=== PATIENT | female | born 1950 | race Caucasian/White ===

== ENCOUNTER 2023-11-26 16:09 | Inpatient (IN) ==
[2023-11-26 17:15] LABS: Hematocrit (blood only) 38.1 % (37.0-47.0); Hemoglobin 13.5 g/dl (12.0-16.0); Mean Corpuscular Hemoglobin 33.3 pg (25.0-34.0); Mean Corpuscular Hgb Conc 35.4 g/dL (32.0-36.0); Mean Corpuscular Volume 94.1 fL (80.0-100.0); Mean Platelet Volume 10.2 fL (9.4-12.4); Platelet Count 424 K/uL (130-400); RDW Coefficient of Variation 12.8 % (11.5-14.5); RDW Standard Deviation 44.3 fL (36.4-46.3); Red Blood Count 4.05 M/uL (4.20-5.40); White Blood Count 23.08 K/ul (4.8-10.8)
[2023-11-26 17:30] LABS: Albumin Globulin Ratio 1.5 (0.9-2); Albumin Level 4.5 gm/dl (3.4-5.0); BUN Creatinine Ratio 17.8 (10-20); Bilirubin,Total 1.3 mg/dl (0.2-1.0); Calcium 9.4 mg/dl (8.6-10.3); Creatinine Clr Calc Pharmacy 42.8 ml/min; Est GFR (Non-African American) 81.1 ml/min; Globulin 3.1 gm/dl (2.5-4.0); Total Protein 7.6 gm/dl (6.0-8.3)
[2023-11-26 17:40] LABS: Basophils # (auto) 0.08 K/uL (0.00-0.20); Basophils % (auto) 0.3 %; Immature Granulocytes # (auto) 0.18 K/uL (0.01-0.20); Immature Granulocytes % (auto) 0.8 %; Lymphocytes # (auto) 1.17 K/uL (1.20-3.40); Lymphocytes % (auto) 5.1 %; Monocytes % (auto) 13.4 %; Neutrophils # (auto) 18.55 K/uL (1.40-6.50); Neutrophils % (auto) 80.4 %; RBC Morphology Unremarkable
[2023-11-26 17:43] LABS: INR 1.1 (0.9-1.1); Partial Thromboplastin Ratio 1.1; Partial Thromboplastin Time 30 Seconds (21-31); Prothrombin Time 11.9 Seconds (9.0-12.0)
[2023-11-26 17:48] LABS: Influenza A virus by PCR Negative (Neg); Influenza B virus by PCR Negative (Neg); RSV by PCR Negative (Neg); SARS CoV2 RNA(COVID-19) Ceph NEGATIVE (Negative)
--- NOTE | 2023-11-26 17:54 | Emergency Department Note ---
Impression & Plan Generalized weakness, Leukocytosis ED Provider Note HISTORY OF PRESENT ILLNESS: Patient is a 73-year-old female presenting with multiple complaints. Patient reports she has had poor oral intake for the last 2 to 3 weeks. She has lost 10 or more pounds in that timeframe. States that in the last week she has been having significant pain in her right lower jaw secondary to dental infection. She states that she has had pain with swallowing and cannot move her neck secondary to pain. She states she went to [facility] today and was prescribed something to help her sleep and an antibiotic. However, given her symptoms she decided to present to the emergency department. Reports that about a month ago she had diarrhea for about 2 weeks and has had multiple episodes of vomiting in that timeframe. She has not had any recent diarrhea or vomiting in the last week. Denies any measured fevers at home. Denies any abdominal pain. Denies any chest pain or shortness of breath. States that 2 months ago she had a root canal performed on a tooth on her right lower jaw. States that she has had further intermittent dental work to that tooth in the last 2 months. She started having pain and difficulty swallowing about a week ago. ROS: as above PHYSICAL EXAM: Constitutional: Patient appears in no acute distress. HENT: Head: Normocephalic and atraumatic. Eyes: EOMI, PERRL Mouth/Throat: Mucous membranes moist. Trismus. Unable to appreciate gumline as patient cannot open her mouth. Neck: Trachea midline. Neck supple. Patient has difficulties ranging her neck secondary to pain with movement to the right. Cardiovascular: RRR, No murmurs, rubs or gallops. Intact distal pulses. Pulmonary/Chest: No respiratory distress. Breath sounds clear and equal bilaterally. No wheezes or rales. Abdominal: Abdomen soft, no tenderness, rebound or guarding. Musculoskeletal: No edema, tenderness or deformity noted. Skin: Warm and dry. No rash, erythema, pallor or cyanosis Psychiatric: Appropriate mood and affect for situation. Neurological: Alert and keenly responsive. CN II-XII grossly intact, moving all extremities equally and fully. MDM: - Vitals signs showed hypertension. - History obtained via patient. History as above. - Chronic conditions affecting care: HTN; diverticulitis; malnutrition - Differential diagnoses include, but are not limited to: Retropharyngeal abscess; dental abscess; cellulitis; electrolyte abnormality; UTI; pneumonia - Order placed for continuous cardiac monitoring. At this time, monitor showed rate of 73 bpm with normal sinus rhythm, per my interpretation. - External medical records reviewed. Wound care visit note dated 05/19/2020 was reviewed. Patient was evaluated in their clinic for a pressure ulcer on her left hip that was a stage III pressure ulcer. - EKG interpreted by myself showed normal sinus rhythm. Rate 94 bpm. QT 372. No acute ischemic changes. - Laboratory workup interpreted by myself showed leukocytosis (WBC 23.08) with neutrophilic shift; thrombocytosis (plt 424); normal PT/INR; normal lactate; elevated anion gap (14 - likely from decreased PO intake); slight hyponatremia (Na 132); hypokalemia (K 3.0); normal procalcitonin - UA negative for infection - COVID/flu/RSV negative - CT soft tissue neck with IV contrast negative for abscess or cellulitis. Severe right and moderate left carotid stenosis suspected, per radiology. - Patient given 1L NS and 1g IV tylenol in ER. - Considered CT abdomen/pelvis, however, the patient has no reproducible abdominal pain on examination reports she is no longer having any diarrhea or vomiting. - Given patient's weakness and poor oral intake, will admit to hospital service for further evaluation. Unclear source of her profound leukocytosis at this time. - Discussion was had with major case detective about patient's case and need for admission - Hospitalist, Dr. Albert, consulted for admission - [facility] ASSESSMENT AND PLAN: Diagnosis: Generalized weakness; leukocytosis Plan: admit Past Med/Surg History Problem List (Updated 11/26/23 @ 23:13 by Kimmy Graham MD) Leukocytosis (Acute) Generalized weakness (Acute) Illness Encounter for wound care (Acute) Pressure ulcer of left hip, stage 3 (Acute) Unstageable pressure ulcer of left hip (Acute) Malnourished (Acute) Sarcopenia (Acute) Stage II pressure ulcer of left hip (Acute) Diverticulitis (Chronic) Hypertension (Chronic) Left arm numbness (Acute) Left hip pain (Acute) Left hip pain (Acute) Medical History Diverticulitis Hypertension Left arm numbness Left hip pain Pressure ulcer of left hip, stage 3 Surgical History History of dental surgery Family History Other Hypertension Social History Smoking Status: Never smoker Tobacco Type: Cigarettes Hx Alcohol Use: Yes Alcohol type: wine Alcohol Intake Frequency: Monthly or Less Hx Substance Use: No Preferred Language: Omani Beliefs That Will Affect Care: None marital status: Single Current Living Situation: Significant Other current occupational status: retired Feels Safe at Home: Yes Allergies Allergies Allergy/AdvReac Type Severity Reaction Status Date / Time cyclobenzaprine Allergy Unknown * Verified 11/26/23 20:13 hydrocodone Allergy Unknown * Verified 11/26/23 20:13 propoxyphene Allergy Unknown * Verified 11/26/23 20:13 Quinolones AdvReac Intermediate N/V Verified 11/26/23 20:13 Home Meds Home Medications Medication Instructions Recorded Confirmed lorazepam 1 mg tablet 0.5 mg PO Q8 PRN Anxiety 02/11/21 11/26/23 amlodipine 5 mg tablet 5 mg PO QAM 12/05/21 11/26/23 amoxicillin 500 mg capsule 2,000 mg PO ONCE PRN before dental 11/26/23 11/26/23 appointment atenolol 50 mg tablet 50 mg PO QAM 11/26/23 11/26/23 omeprazole 20 mg capsule,delayed 20 mg PO DAILYBB 11/26/23 11/26/23 release sucralfate 100 mg/mL oral 10 ml PO QID 11/26/23 11/26/23 suspension Results & Data (ED) Vital Signs Vital Signs - 24 hr 11/26/23 16:12 11/26/23 17:15 11/26/23 19:44 Temperature 36.7 C Temperature Source Skin Pulse Rate 90 Pulse Rate [Apical] 90 70 Respiratory Rate 18 14 18 Respiratory Effort / Characteristics Non-Labored Spontaneous Respiratory Depth Normal Blood Pressure 158/90 H Blood Pressure [Left Arm] 150/82 H 130/70 Blood Pressure Mean 112 Blood Pressure Mean [Left Arm] 104 90 Pulse Oximetry 98 99 95 Oxygen Delivery Method Room Air Room Air Room Air Sepsis Recent Fever Within 48 Hours No Sepsis New/Unexplained Change in Mental Status No Sepsis Action Taken by Nursing No Action Required 11/26/23 19:48 11/26/23 20:00 11/26/23 21:00 Temperature Temperature Source Pulse Rate 67 68 68 Pulse Rate [Apical] Respiratory Rate 18 20 Respiratory Effort / Characteristics Respiratory Depth Blood Pressure 128/65 123/74 Blood Pressure [Left Arm] Blood Pressure Mean 86 99 Blood Pressure Mean [Left Arm] Pulse Oximetry 94 93 Oxygen Delivery Method Sepsis Recent Fever Within 48 Hours Sepsis New/Unexplained Change in Mental Status Sepsis Action Taken by Nursing 11/26/23 22:00 Temperature Temperature Source Pulse Rate 73 Pulse Rate [Apical] Respiratory Rate 20 Respiratory Effort / Characteristics Respiratory Depth Blood Pressure 134/72 Blood Pressure [Left Arm] Blood Pressure Mean 97 Blood Pressure Mean [Left Arm] Pulse Oximetry 94 Oxygen Delivery Method Sepsis Recent Fever Within 48 Hours Sepsis New/Unexplained Change in Mental Status Sepsis Action Taken by Nursing Laboratory Data 11/26/23 16:41 11/26/23 16:41 Lab Results 11/26/23 11/26/23 11/26/23 Range/Units 16:33 16:41 19:02 WBC 23.08 H (4.8-10.8) K/ul RBC 4.05 L (4.20-5.40) M/uL Hgb 13.5 (12.0-16.0) g/dl Hct 38.1 (37.0-47.0) % MCV 94.1 (80.0-100.0) fL MCH 33.3 (25.0-34.0) pg MCHC 35.4 (32.0-36.0) g/dL RDW Std Deviation 44.3 (36.4-46.3) fL RDW Coeff of Piero 12.8 (11.5-14.5) % Plt Count 424 H (130-400) K/uL MPV 10.2 (9.4-12.4) fL Immature Gran % (Auto) 0.8 % Neut % (Auto) 80.4 % Lymph % (Auto) 5.1 % [place] % (Auto) 13.4 % Eos % (Auto) 0.0 % Baso % (Auto) 0.3 % Neut # (Auto) 18.55 H (1.40-6.50) K/uL Lymph # (Auto) 1.17 L (1.20-3.40) K/uL [place] # (Auto) 3.10 H (0.11-0.59) K/uL Eos # (Auto) 0.00 (0.00-0.50) K/uL Baso # (Auto) 0.08 (0.00-0.20) K/uL Immature Gran # (Auto) 0.18 (0.01-0.20) K/uL RBC Morphology Unremarkable PT 11.9 (9.0-12.0) Seconds INR 1.1 (0.9-1.1) APTT 30 (21-31) Seconds PTT Ratio 1.1 Sodium 132 L (136-145) mmol/L Potassium 3.0 L (3.5-5.1) mmol/L Chloride 90 L (98-107) mmol/L Carbon Dioxide 28 (21-32) mmol/L Anion Gap 14 H (3-11) BUN 13 (6-23) mg/dl Creatinine 0.73 (0.6-1.2) mg/dl Est Cr Clr Drug Dosing 42.8 ml/min Est GFR ( Amer) 94.0 ml/min Est GFR (Non-Af Amer) 81.1 ml/min BUN/Creatinine Ratio 17.8 (10-20) Glucose 125 H (70-99(Fasting)) mg/dl Lactate 0.9 (0.4-2.0) mmol/L Calcium 9.4 (8.6-10.3) mg/dl Total Bilirubin 1.3 H (0.2-1.0) mg/dl AST 16 (13-39) U/L ALT 19 (7-52) U/L Alkaline Phosphatase 69 (34-104) U/L Total Protein 7.6 (6.0-8.3) gm/dl Albumin 4.5 (3.4-5.0) gm/dl Globulin 3.1 (2.5-4.0) gm/dl Albumin/Globulin Ratio 1.5 (0.9-2) Procalcitonin 0.22 (0-0.5) ng/ml Urine Color Urine Appearance (Clear) Urine pH (4.5-7.5) Ur Specific [place] (1.000-1.030) Urine Protein (Negative) Urine Glucose (UA) (Negative) Urine Ketones (Negative) Urine Blood (Negative) Urine Nitrite (Negative) Urine Bilirubin (Negative) Urine Urobilinogen (Negative) Ur Leukocyte Esterase (Negative) Urine WBC (Auto) (0-5) /hpf Urine RBC (Auto) (0-2) /hpf U Hyaline Cast (Auto) (0-2) /lpf U Epithel Cells (Auto) (0-2) /hpf Urine Bacteria (Auto) (None Seen) SARS-CoV-2 (PCR) NEGATIVE (Negative) Influenza Type A (PCR) Negative (Neg) Influenza Type B (PCR) Negative (Neg) RSV (RT-PCR) Negative (Neg) 11/26/23 Range/Units 19:45 WBC (4.8-10.8) K/ul RBC (4.20-5.40) M/uL Hgb (12.0-16.0) g/dl Hct (37.0-47.0) % MCV (80.0-100.0) fL MCH (25.0-34.0) pg MCHC (32.0-36.0) g/dL RDW Std Deviation (36.4-46.3) fL RDW Coeff of Piero (11.5-14.5) % Plt Count (130-400) K/uL MPV (9.4-12.4) fL Immature Gran % (Auto) % Neut % (Auto) % Lymph % (Auto) % [place] % (Auto) % Eos % (Auto) % Baso % (Auto) % Neut # (Auto) (1.40-6.50) K/uL Lymph # (Auto) (1.20-3.40) K/uL [place] # (Auto) (0.11-0.59) K/uL Eos # (Auto) (0.00-0.50) K/uL Baso # (Auto) (0.00-0.20) K/uL Immature Gran # (Auto) (0.01-0.20) K/uL RBC Morphology PT (9.0-12.0) Seconds INR (0.9-1.1) APTT (21-31) Seconds PTT Ratio Sodium (136-145) mmol/L Potassium (3.5-5.1) mmol/L Chloride (98-107) mmol/L Carbon Dioxide (21-32) mmol/L Anion Gap (3-11) BUN (6-23) mg/dl Creatinine (0.6-1.2) mg/dl Est Cr Clr Drug Dosing ml/min Est GFR ( Amer) ml/min Est GFR (Non-Af Amer) ml/min BUN/Creatinine Ratio (10-20) Glucose (70-99(Fasting)) mg/dl Lactate (0.4-2.0) mmol/L Calcium (8.6-10.3) mg/dl Total Bilirubin (0.2-1.0) mg/dl AST (13-39) U/L ALT (7-52) U/L Alkaline Phosphatase (34-104) U/L Total Protein (6.0-8.3) gm/dl Albumin (3.4-5.0) gm/dl Globulin (2.5-4.0) gm/dl Albumin/Globulin Ratio (0.9-2) Procalcitonin (0-0.5) ng/ml Urine Color Dark Yellow Urine Appearance Cloudy A (Clear) Urine pH 5.5 (4.5-7.5) Ur Specific [place] 1.023 (1.000-1.030) Urine Protein 1+ H (Negative) Urine Glucose (UA) Negative (Negative) Urine Ketones 1+ H (Negative) Urine Blood Negative (Negative) Urine Nitrite Negative (Negative) Urine Bilirubin 2+ H (Negative) Urine Urobilinogen Negative (Negative) Ur Leukocyte Esterase Trace H (Negative) Urine WBC (Auto) 6-10 H (0-5) /hpf Urine RBC (Auto) 0-2 (0-2) /hpf U Hyaline Cast (Auto) 6-10 H (0-2) /lpf U Epithel Cells (Auto) 11-20 H (0-2) /hpf Urine Bacteria (Auto) None Seen (None Seen) SARS-CoV-2 (PCR) (Negative) Influenza Type A (PCR) (Neg) Influenza Type B (PCR) (Neg) RSV (RT-PCR) (Neg) Administered Medications Discontinued Medications Sodium Chloride (Nss) 1,000 mls @ 999 mls/hr IV .[id number] ONE Stop: 11/26/23 18:50 Last Infusion: 11/26/23 20:00 Dose: Infused Documented By: Admin: 11/26/23 17:56 Dose: 999 mls/hr Documented By: ENMA Acetaminophen (Ofirmev) 1,000 mg in 100 mls @ 400 mls/hr IV NOW STA Stop: 11/26/23 18:04 Last Infusion: 11/26/23 18:11 Dose: Infused Documented By: Admin: 11/26/23 17:56 Dose: 400 mls/hr Documented By: ENMA Ioversol (Optiray 320 100ml) 94 ml IV ONCE ONE Stop: 11/26/23 18:27 Last Admin: 11/26/23 18:27 Dose: 94 ml Documented By: MOLLY Imaging Data Radiologist's Impression: Soft Tissue Neck CT 11/26/23 17:49 Exam(s): CT NECK With Contrast IV Amt: 94 cc opti 320 EXAM: CT Neck With Intravenous Contrast CLINICAL HISTORY: Reason for exam: R dental infection; neck pain. TECHNIQUE: Axial computed tomography images of the neck with intravenous contrast. CTDI is 8.2 mGy and DLP is 222.71 mGy-cm. Automated exposure control was utilized for the study. A dose lowering technique was utilized adhering to the principles of ALARA. Mild to moderate motion artifact and dental metal artifact. CONTRAST: Patient received 94 cc opti 320 of IV contrast COMPARISON: CT cervical spine 12/05/21. FINDINGS: Oropharynx: Unremarkable. No significant tonsillar enlargement. No peritonsillar abscess. Hypopharynx: Unremarkable. Larynx: Unremarkable. Normal epiglottis. Trachea: Unremarkable. Retropharyngeal space: Unremarkable. Submandibular/parotid glands: Unremarkable. Thyroid: Unremarkable. Bones/joints: No acute fracture. Soft tissues: Unremarkable. No mass, cellulitis or abscess, with attention to the soft tissues near the maxilla and mandible. Vasculature: Severe bilateral carotid atherosclerosis with severe right and at least moderate left ICA stenosis. Lymph nodes: Unremarkable. No lymphadenopathy. Lung apices: Unremarkable as visualized. IMPRESSION: 1. No abscess or cellulitis attention to the dentition. Limited evaluation due to dental metal artifact and patient motion. 2. Severe right and moderate left carotid stenosis suspected. Electronically signed by: Lillie Gary M.D. 11/26/23 19:53 PM Discharge Plan Visit Data Chief Complaint: Illness Stated Complaint: NOT EATING, LETHARGIC, SORE THROAT, NECK PAIN ED Provider: Kimmy Graham Discharge Problem: Generalized weakness, Leukocytosis Forms Stand Alone Forms: My [facility] Prescriptions Prescriptions: No Action lorazepam 1 mg tablet 0.5 mg PO Q8 PRN (Reason: Anxiety) amlodipine 5 mg tablet 5 mg PO QAM sucralfate 100 mg/mL suspension 10 ml PO QID omeprazole 20 mg capsule,delayed release(DR/EC) 20 mg PO DAILYBB atenolol 50 mg tablet 50 mg PO QAM amoxicillin 500 mg capsule 2,000 mg PO ONCE PRN (Reason: before dental appointment) Referrals Referrals: Richi Alonzo MD [Primary Care Provider] -
[2023-11-26] MEDS: SODIUM CHLORIDE 0.9% 1,000 ML IV ONE (17:56)
[2023-11-26] MEDS: ACETAMINOPHEN 1,000 MG/100 ML VIAL IV STA (17:56)
[2023-11-26] MEDS: OPTIRAY 320 100ml IV ONE (18:27)
--- NOTE | 2023-11-26 19:54 | CT Scan Report ---
Exam(s): CT NECK With Contrast IV Amt: 94 cc opti 320 EXAM: CT Neck With Intravenous Contrast CLINICAL HISTORY: Reason for exam: R dental infection; neck pain. TECHNIQUE: Axial computed tomography images of the neck with intravenous contrast. CTDI is 8.2 mGy and DLP is 222.71 mGy-cm. Automated exposure control was utilized for the study. A dose lowering technique was utilized adhering to the principles of ALARA. Mild to moderate motion artifact and dental metal artifact. CONTRAST: Patient received 94 cc opti 320 of IV contrast COMPARISON: CT cervical spine 12/05/21. FINDINGS: Oropharynx: Unremarkable. No significant tonsillar enlargement. No peritonsillar abscess. Hypopharynx: Unremarkable. Larynx: Unremarkable. Normal epiglottis. Trachea: Unremarkable. Retropharyngeal space: Unremarkable. Submandibular/parotid glands: Unremarkable. Thyroid: Unremarkable. Bones/joints: No acute fracture. Soft tissues: Unremarkable. No mass, cellulitis or abscess, with attention to the soft tissues near the maxilla and mandible. Vasculature: Severe bilateral carotid atherosclerosis with severe right and at least moderate left ICA stenosis. Lymph nodes: Unremarkable. No lymphadenopathy. Lung apices: Unremarkable as visualized. IMPRESSION: 1. No abscess or cellulitis attention to the dentition. Limited evaluation due to dental metal artifact and patient motion. 2. Severe right and moderate left carotid stenosis suspected. Electronically signed by: Lillie Gary M.D. 11/26/23 19:53 PM
[2023-11-26 20:15] LABS: Appearance Urine Cloudy (Clear); Bacteria Urine Automated None Seen (None Seen); Bilirubin Urine 2+ (Negative); Blood Urine Negative (Negative); Color Urine Dark Yellow; Glucose Urine UA Negative (Negative); Ketones Urine 1+ (Negative); Leukocyte Esterase Urine Trace (Negative); Nitrite Urine Negative (Negative); Protein Urine 1+ (Negative); RBC Urine Automated 0-2 /hpf (0-2); Specific Gravity Urine 1.023 (1.000-1.030); Urobilinogen Urine Negative (Negative); pH Urine 5.5 (4.5-7.5)
--- NOTE | 2023-11-26 22:43 | History & Physical Report ---
Date of Service November 26, 2023 Assessment & Plan (1) Illness: Plan: 73-year-old female with past medical history significant for hyperlipidemia, hypertension, history of polymyalgia rheumatica, osteoporosis, protein calorie malnutrition, diverticulosis of colon and diverticulitis, history of tobacco use disorder, depression with anxiety comes because of pain in the jaw and neck and face and thinks possible dental infection. Patient states she had a root canal in a one of the front teeth teeth in lower jaw few months back and at that time the tooth was cracked. There is a plan for dental implantation. About 3 weeks ago her dentist scrapped that teeth. For 1 week she was okay but after 1 week she developed some pain in the jaw and she thinks she has some infection going on there. As per she also gets these bouts of nausea/ vomiting and d iarrhea every few months since she has bowel surgery for diverticulitis. 2 weeks ago she developed nausea vomiting and diarrhea saw PCP thought to be gastroenteritis and also had some dysphagia thought to be from GERD and prescribed omeprazole. Currently nausea /vomiting and diarrhea resolved and dysphagia seems to be getting better. Then the last few days the dental pain has got worse and she cannot open mouth fully and also pain is radiating to the right side of the face and to the neck and not eating or drinking much because of this ongoing symptoms.Patient states she was talking with her dentist last couple of days and was advised to go to come to the hospital. Denies any fever. Has some headache. No dizziness. No blurred visions. No runny nose. Has occasional cough. No chest pain. No shortness of breath. No abdominal pain. Currently bowel movements are okay. Micturating okay. Last few days because of weakness she is requiring some assistance with ambulating. Lost about 10 pounds in last 3 weeks. Currently resting comfortably and hemodynamic stable. Illness Leukocytosis Has dental pain right lower jaw radiating to the face and neck Recent dental procedure CT scan soft tissue neck okay Having difficulty eating clears for now IV fluids Pain control IV Zosyn Consult oral surgery in a.m. Recent diarrhea Leukocytosis No recent use of antibiotics Will check for C. difficile Dysphagia Possible GERD CT soft tissue neck okay Seems somewhat getting better IV Pepcid If not improving will consult GI Malnutrition Nutrition follow-up Hyperlipidemia On statin Hypertension On amlodipine and atenolol Will monitor Depression with anxiety On Ativan as needed DVT prophylaxis SCDs for now Disposition Medical floor Full code. History of Present Illness Chief Complaint: Illness, possible dental infection Primary Care Provider: Richi Alnozo MD 73-year-old female with past medical history significant for hyperlipidemia, hypertension, history of polymyalgia rheumatica, osteoporosis, protein calorie malnutrition, diverticulosis of colon and diverticulitis, history of tobacco use disorder, depression with anxiety comes because of pain in the jaw and neck and face and thinks possible dental infection. Patient states she had a root canal in a one of the front teeth teeth in lower jaw few months back and at that time the tooth was cracked. There is a plan for dental implantation. About 3 weeks ago her dentist scrapped that teeth. For 1 week she was okay but after 1 week she developed some pain in the jaw and she thinks she has some infection going on there. As per she also gets these bouts of nausea/ vomiting and diarrhea every few months since she has bowel surgery for diverticulitis. 2 weeks ago she developed nausea vomiting and diarrhea saw PCP thought to be gastroenteritis and also had some dysphagia thought to be from GERD and prescribed omeprazole. Currently nausea /vomiting and diarrhea resolved and dysphagia seems to be getting better. Then the last few days the dental pain has got worse and she cannot open mouth fully and also pain is radiating to the right side of the face and to the neck and not eating or drinking much because of this ongoing symptoms.Patient states she was talking with her dentist last couple of days and was advised to go to come to the hospital. Denies any fever. Has some headache. No dizziness. No blurred visions. No runny nose. Has occasional cough. No chest pain. No shortness of breath. No abdominal pain. Currently bowel movements are okay. Micturating okay. Last few days because of weakness she is requiring some assistance with ambulating. Lost about 10 pounds in last 3 weeks. Currently resting comfortably and hemodynamic stable. Past medical history. As mentioned above Past surgical history. Colonoscopy with biopsy. Dilatation curettage. Lumbar hemilaminectomy. Partial removal of colon for recurrent diverticulitis. Cataracts. Social history. Quit smoking 2018. Smoked 0.1 pack a day for 30 years. Alcohol occasional. No drug use. Family history significant for mother had allergies. Paternal aunt had breast cancer. Paternal grandmother had diabetes. Allergies Allergy/AdvReac Type Severity Reaction Status Date / Time cyclobenzaprine Allergy Unknown * Verified 11/26/23 20:13 hydrocodone Allergy Unknown * Verified 11/26/23 20:13 propoxyphene Allergy Unknown * Verified 11/26/23 20:13 Quinolones AdvReac Intermediate N/V Verified 11/26/23 20:13 Home Medications Medication Instructions Recorded Confirmed Type lorazepam 1 mg tablet 0.5 mg PO Q8 PRN Anxiety 02/11/21 11/26/23 History amlodipine 5 mg tablet 5 mg PO QAM 12/05/21 11/26/23 History amoxicillin 500 mg capsule 2,000 mg PO ONCE PRN before dental 11/26/23 11/26/23 History appointment atenolol 50 mg tablet 50 mg PO QAM 11/26/23 11/26/23 History omeprazole 20 mg capsule,delayed 20 mg PO DAILYBB 11/26/23 11/26/23 History release sucralfate 100 mg/mL oral 10 ml PO QID 11/26/23 11/26/23 History suspension Past Med/Surg History Problem List (Updated 11/26/23 @ 23:13 by Kimmy Graham MD) Leukocytosis (Acute) Generalized weakness (Acute) Illness Encounter for wound care (Acute) Pressure ulcer of left hip, stage 3 (Acute) Unstageable pressure ulcer of left hip (Acute) Malnourished (Acute) Sarcopenia (Acute) Stage II pressure ulcer of left hip (Acute) Diverticulitis (Chronic) Hypertension (Chronic) Left arm numbness (Acute) Left hip pain (Acute) Left hip pain (Acute) Medical History Diverticulitis Hypertension Left arm numbness Left hip pain Pressure ulcer of left hip, stage 3 Surgical History History of dental surgery Family History Other Hypertension Social History Smoking Status: Never smoker Tobacco Type: Cigarettes Hx Alcohol Use: Yes Alcohol type: wine Alcohol Intake Frequency: Monthly or Less Hx Substance Use: Yes Last Used Substance: Unknown Last Used Substance Other:: uses medical marijuana "ocassionally", but not recently Preferred Language: Bangladeshi Communication Ability: Effective Environmental Engineer Scientist Required: No Beliefs That Will Affect Care: None marital status: Single Current Living Situation: Significant Other Current Living Situation Comment: lives with sig. other in 2 story home, some reported difficulty with stairs current occupational status: retired Other Information That Helps Us Care for You: No Feels Safe at Home: Yes Safety Concerns: Feels Safe At This Time Assistive Devices: Denture - Upper Assistive Devices Comment: states that she is "getting a cane" due to recent weakness Review of Systems Review of Systems: All systems reviewed & are unremarkable except as noted in HPI & below Physical Exam Physical Exam: General- Not in acute distress. Thin and frail Head- atraumatic Eyes- PERRL. ENT- oropharynx clear, Painful opening of mouth Neck- supple, no JVD. Lungs- clear to auscultation no wheezing or crackles Heart- regular rhythm; no murmur, no gallop Abdomen- normal bowel sounds, soft, nontender, no distension Extremities- no pretibial edema, no erythema seen. Neuro- alert, oriented PERRL, no facial palsy; no dysarthria; moves extremities Results & Data Results & Data Vital Signs (Past 12 Hours) Vital Signs Temp Pulse Pulse Resp BP BP Pulse Ox 11/26/23 22:00 73 20 134/72 94 11/26/23 21:00 68 20 123/74 93 11/26/23 20:00 68 18 128/65 94 11/26/23 19:48 67 11/26/23 19:44 70 18 130/70 95 11/26/23 17:15 90 14 150/82 H 99 11/26/23 16:12 36.7 C 90 18 158/90 H 98 O2 Del Method 11/26/23 22:00 11/26/23 21:00 11/26/23 20:00 11/26/23 19:48 11/26/23 19:44 Room Air 11/26/23 17:15 Room Air 11/26/23 16:12 Room Air Diagnostic Findings Laboratory Results WBC 23.08 K/ul (4.8-10.8) H 11/26/23 16:41 RBC 4.05 M/uL (4.20-5.40) L 11/26/23 16:41 Hgb 13.5 g/dl (12.0-16.0) 11/26/23 16:41 Hct 38.1 % (37.0-47.0) 11/26/23 16:41 MCV 94.1 fL (80.0-100.0) 11/26/23 16:41 MCH 33.3 pg (25.0-34.0) 11/26/23 16:41 MCHC 35.4 g/dL (32.0-36.0) 11/26/23 16:41 RDW Std Deviation 44.3 fL (36.4-46.3) 11/26/23 16:41 RDW Coeff of Piero 12.8 % (11.5-14.5) 11/26/23 16:41 Plt Count 424 K/uL (130-400) H 11/26/23 16:41 MPV 10.2 fL (9.4-12.4) 11/26/23 16:41 Immature Gran % (Auto) 0.8 % 11/26/23 16:41 Neut % (Auto) 80.4 % 11/26/23 16:41 Lymph % (Auto) 5.1 % 11/26/23 16:41 [place] % (Auto) 13.4 % 11/26/23 16:41 Eos % (Auto) 0.0 % 11/26/23 16:41 Baso % (Auto) 0.3 % 11/26/23 16:41 Neut # (Auto) 18.55 K/uL (1.40-6.50) H 11/26/23 16:41 Lymph # (Auto) 1.17 K/uL (1.20-3.40) L 11/26/23 16:41 [place] # (Auto) 3.10 K/uL (0.11-0.59) H 11/26/23 16:41 Eos # (Auto) 0.00 K/uL (0.00-0.50) 11/26/23 16:41 Baso # (Auto) 0.08 K/uL (0.00-0.20) 11/26/23 16:41 Immature Gran # (Auto) 0.18 K/uL (0.01-0.20) 11/26/23 16:41 RBC Morphology Unremarkable 11/26/23 16:41 PT 11.9 Seconds (9.0-12.0) 11/26/23 16:41 INR 1.1 (0.9-1.1) 11/26/23 16:41 APTT 30 Seconds (21-31) 11/26/23 16:41 PTT Ratio 1.1 11/26/23 16:41 Sodium 132 mmol/L (136-145) L 11/26/23 16:41 Potassium 3.0 mmol/L (3.5-5.1) L 11/26/23 16:41 Chloride 90 mmol/L (98-107) L 11/26/23 16:41 Carbon Dioxide 28 mmol/L (21-32) 11/26/23 16:41 Anion Gap 14 (3-11) H 11/26/23 16:41 BUN 13 mg/dl (6-23) 11/26/23 16:41 Creatinine 0.73 mg/dl (0.6-1.2) 11/26/23 16:41 Est Cr Clr Drug Dosing 42.8 ml/min 11/26/23 16:41 Est GFR ( Amer) 94.0 ml/min 11/26/23 16:41 Est GFR (Non-Af Amer) 81.1 ml/min 11/26/23 16:41 BUN/Creatinine Ratio 17.8 (10-20) 11/26/23 16:41 Glucose 125 mg/dl (70-99(Fasting)) H 11/26/23 16:41 Lactate 0.9 mmol/L (0.4-2.0) 11/26/23 19:02 Calcium 9.4 mg/dl (8.6-10.3) 11/26/23 16:41 Total Bilirubin 1.3 mg/dl (0.2-1.0) H 11/26/23 16:41 AST 16 U/L (13-39) 11/26/23 16:41 ALT 19 U/L (7-52) 11/26/23 16:41 Alkaline Phosphatase 69 U/L (34-104) 11/26/23 16:41 Total Protein 7.6 gm/dl (6.0-8.3) 11/26/23 16:41 Albumin 4.5 gm/dl (3.4-5.0) 11/26/23 16:41 Globulin 3.1 gm/dl (2.5-4.0) 11/26/23 16:41 Albumin/Globulin Ratio 1.5 (0.9-2) 11/26/23 16:41 Procalcitonin 0.22 ng/ml (0-0.5) 11/26/23 16:41 Urine Color Dark Yellow 11/26/23 19:45 Urine Appearance Cloudy (Clear) A 11/26/23 19:45 Urine pH 5.5 (4.5-7.5) 11/26/23 19:45 Ur Specific [place] 1.023 (1.000-1.030) 11/26/23 19:45 Urine Protein 1+ (Negative) H 11/26/23 19:45 Urine Glucose (UA) Negative (Negative) 11/26/23 19:45 Urine Ketones 1+ (Negative) H 11/26/23 19:45 Urine Blood Negative (Negative) 11/26/23 19:45 Urine Nitrite Negative (Negative) 11/26/23 19:45 Urine Bilirubin 2+ (Negative) H 11/26/23 19:45 Urine Urobilinogen Negative (Negative) 11/26/23 19:45 Ur Leukocyte Esterase Trace (Negative) H 11/26/23 19:45 Urine WBC (Auto) 6-10 /hpf (0-5) H 11/26/23 19:45 Urine RBC (Auto) 0-2 /hpf (0-2) 11/26/23 19:45 U Hyaline Cast (Auto) 6-10 /lpf (0-2) H 11/26/23 19:45 U Epithel Cells (Auto) 11-20 /hpf (0-2) H 11/26/23 19:45 Urine Bacteria (Auto) None Seen (None Seen) 11/26/23 19:45 SARS-CoV-2 (PCR) NEGATIVE (Negative) 11/26/23 16:33 Influenza Type A (PCR) Negative (Neg) 11/26/23 16:33 Influenza Type B (PCR) Negative (Neg) 11/26/23 16:33 RSV (RT-PCR) Negative (Neg) 11/26/23 16:33 Impressions Soft Tissue Neck CT 11/26/23 17:49 Exam(s): CT NECK With Contrast IV Amt: 94 cc opti 320 EXAM: CT Neck With Intravenous Contrast CLINICAL HISTORY: Reason for exam: R dental infection; neck pain. TECHNIQUE: Axial computed tomography images of the neck with intravenous contrast. CTDI is 8.2 mGy and DLP is 222.71 mGy-cm. Automated exposure control was utilized for the study. A dose lowering technique was utilized adhering to the principles of ALARA. Mild to moderate motion artifact and dental metal artifact. CONTRAST: Patient received 94 cc opti 320 of IV contrast COMPARISON: CT cervical spine 12/05/21. FINDINGS: Oropharynx: Unremarkable. No significant tonsillar enlargement. No peritonsillar abscess. Hypopharynx: Unremarkable. Larynx: Unremarkable. Normal epiglottis. Trachea: Unremarkable. Retropharyngeal space: Unremarkable. Submandibular/parotid glands: Unremarkable. Thyroid: Unremarkable. Bones/joints: No acute fracture. Soft tissues: Unremarkable. No mass, cellulitis or abscess, with attention to the soft tissues near the maxilla and mandible. Vasculature: Severe bilateral carotid atherosclerosis with severe right and at least moderate left ICA stenosis. Lymph nodes: Unremarkable. No lymphadenopathy. Lung apices: Unremarkable as visualized. IMPRESSION: 1. No abscess or cellulitis attention to the dentition. Limited evaluation due to dental metal artifact and patient motion. 2. Severe right and moderate left carotid stenosis suspected. Electronically signed by: Lillie Gary M.D. 11/26/23 19:53 PM ECG Additional Comments: ECG normal sinus rhythm rate of 94. Nonspecific ST and T wave abnormalities. Code Status & VTE Plan VTE Prophylaxis Plan VTE Prophylaxis will be ordered: Yes
[2023-11-26] MEDS ORDERED: LORazepam 0.5 MG TAB PO PRN (23:54)
[2023-11-26] MEDS ORDERED: MoRPHine SULFATE 2 MG/ML CARP IV PRN (23:54)
[2023-11-26] MEDS ORDERED: POLYETHYLENE (MIRALAX) 17 GM PACK PO PRN (23:54)
[2023-11-26] MEDS ORDERED: ACETAMINOPHEN 325 MG TAB PO PRN (23:54)
[2023-11-27] MEDS: D5W AND 1/2NSS 1,000 ML IV SCH (00:16)
[2023-11-27] MEDS: FAMOTIDINE 20MG IV PUSH 20 MG/5 ML SYR IV STA (00:16)
[2023-11-27] MEDS: PIPER/TAZO 4.5g in D5W MINI-B 100 ML IV STA (00:31)
--- OUTSIDE RECORDS SUMMARY | 2023-11-27 03:18 | External Medical Summary | Summary of Care ---
Author Name Unknown Organization [facility] Address [address] [place] [address] Phone [phone] Care Team Providers Care Grill Prep Cook Name Role Phone Cheri ESPINO MD, Richi Sanches Primary Care Provider [phone] Reason for Referral * Ancillary Services (Within 10 days (routine)) - Authorized Specialty Diagnoses / Procedures Referred By Yi chao Referred To Contact Gastroenterology Diagnoses Acute gastroenteritis Loss of weight Esophageal dysphagia Helena Carver MD [address] [place] [address] Referral ID Status Reason Start Date Expiration Date Visits Requested Visits Authorized [id number] Authorized Ancillary Services Required 11/22/2023 999 999 Question Answer Referral Priority Within 10 days (routine) Where should this appointment be scheduled? [facility] Comments Upper Endoscopy ASGE Guidelines Dysphagia or odynophagia ADDITIONAL INFORMATION 1. Is the patient on Coumadin? No 2. Is the patient on Pradaxa? No Reason for Visit * Reason Comments Acute Last starte d with nausea, vomiting and diarrhea, weakness-started feeling better earlier this week. Since being sick has been having difficulty swallowing water-improving some Encounter Details Date Type Department Care Team (Late st Contact Info) Description 11/22/2023 1:00 PM EDT Office Visit General Internal Medicine [facility] [place] [address] [place] [address] Helena Carver MD [address] [place] [address] Acute gastroenteritis*; Loss of weight; Esophageal dysphagia; HTN, goal below 140/90; Other specified hypotension; Incisional hernia, without obstruction or gangrene; Underweight Allergies Active Allergy Reactions Criticality Noted Date Comments Cyclobenzaprine 12/05/2021 Other reaction(s): * Hydrocodone Hives High 01/27/1999 Nsaids 02/21/2000 Nausea heart flutters dizy Prednisone 03/28/2022 Hyper, jittery, insomnia Propoxyphene 01/26/2018 Other reaction(s): * Quinolones Medium 01/26/2018 Other reaction(s): N/V Sulfa Antibiotics 01/21/2013 Nausea, vomiting, and diarrhea documented as of this encounter (statuses as of 11/22/2023) Medications Medication Sig Dispensed Refills Start Date End Date Status Cholecalciferol (VITAMIN D3) 2000 units Capsule Take 1 Capsule by mouth in the morning. 90 Cap 1 03/18/2018 Active amoxicillin (AMOXIL) 500 MG Capsule take 4 capsules by mouth ONCE FOR 1 DOSE 1 HOUR BEFORE DENTAL PROCEDURE 4 Cap 3 11/18/2018 Active Acetaminophen ER 650 MG Oral Tablet Extended Release Take 1 Tablet by mouth every 8 hours as needed. Active Atenolol 50 MG Oral Tablet (Tenormin) Take 1 Tablet by mouth in the morning. 90 Tablet 10/09/2023 Active LORazepam 1 MG Oral Tablet (Ativan)Indicati ons:Anxiety state take 1/2 tablet by mouth every 8 hours if needed for anxiety 30 Tablet 11/20/2023 Active Omeprazole 20 MG Oral Capsule Delayed Release (PriLOSEC)Indica tions:Acute gastroenteritis, Loss of weight,Esophagea l dysphagia Take 1 Capsule by mouth in the morning. 1 hour before the first meal of the day. 30 Capsule 1 11/22/2023 Active Sucralfate 1 GM/10ML Oral Suspension (Carafate)Indica tions:Acute gastroenteritis, Esophageal dysphagia Take 10 mL by mouth in the morning and 10 mL at noon and 10 mL in the evening and 10 mL before bedtime. 420 mL 11/22/2023 Active amLODIPine Besylate 5 MG Oral Tablet (Norvasc) Take 1 Tablet by mouth in the morning. 90 Tablet 1 06/19/2023 11/22/2023 Discontinued (End of Procedure) documented as of this encounter (statuses as of 11/22/2023) Active Problems Problem Noted Date Diagnosed Date PMR (polymyalgia rheumatica) 03/28/2022 Protein-calorie malnutrition 02/27/2022 H/O epistaxis 03/20/2018 DYSLIPIDEMIA, GOAL TO BE DETERMINED 03/24/2009 Overview: Per Lipid Taxonomy. No advance directive on file 02/22/2008 Overview: No, Advance Directive brochure given to patient at prior appointment. Diverticulosis of colon 08/05/2007 Overview: 07/28/2010: colonoscopy benign mucosa and hyperplastic polyp, repeat 2016 Depression with anxiety 05/01/2007 Osteoporosis 07/22/2003 Anxiety state 07/22/2003 HTN, goal below 140/90 07/22/2003 Tobacco use disorder documented as of this encounter (statuses as of 11/22/2023) Resolved Problems Problem Noted Date Diagnosed Date Resolved Date Palpitations 01/13/2012 03/31/2018 Anxiety state 01/13/2012 05/13/2018 Asthma with severity to be determined 01/13/2007 08/20/2016 Overview: ICD-10 update of inactive term Allergic rhinitis 01/13/2007 05/13/2018 Mixed dyslipidemia 07/22/2003 9 Overview: Per Lipid Taxonomy. PATHOLOGICAL FRACTURE OF VERTEBRAE 07/22/2003 02/21/2017 documented as of this encounter (statuses as of 11/22/2023) Immunizations Name Administration Dates Next Due COVID-19 mRNA, LNP-s, No Pre serve, 2-Dose Series (Lydia) 11/10/2021,03/01/2021,08/17/2020,2020 Covid-19, Mrna, Lnp-s, Pf, B ivalent, 30 Mcg, IM, 12 yrs and above (Pfizer) 04/04/2022 Season Influenza, Quad, PF, Adjuvanted, 65+ Yrs, IM (FLUAD) 01/28/2020 Seasonal Influenza, PF, 6 M & above, IM , (FluLaval or Fluzone) 03/01/2023 Seasonal Influenza, Quadriva lent Hd (Fluzone Hd) 01/17/2022,12/29/2020 TDAP (age 10 and older)(Boostrix) 08/26/2017 TDAP, Age 7 and older, IM (Adacel) 12/25/2006 documented as of this encounter Social History Tobacco Use Types Packs/Day Years Used Date Smoking Tobacco: Former Cigarettes 0.1 30 0 12/23/1988 - 12/23/2018 Smokeless Tobacco: Never Comments:Reports trying to q uit occ smoker Alcohol Use Standard Drinks/Week Comments Yes 1.7 (1 standard drink = 0.6 oz p ure alcohol) occ drinks a week AUDIT-C Answer Date Recorded Q1: How often do you have a drink containing alcohol? 4 or more times a week 07/21/2020 Q2: How many drinks containi ng alcohol do you have on a typical day when you are drinking? 1 or 2 Q3: How often do you have si x or more drinks on one occasion? Not asked 07/21/2020 PHQ-2 Answer Date Recorded PHQ Adult Total Score 0 12/15/2021 Utilities Answer Date Recorded Do you have trouble paying y our heating, water, or electric bill? (Adult - for ages 18 years and over) Not on file 10/01/2023 Is your family able to pay t he heat, water, or electric bill? (Household - for ages 0-17 years) Not on file 10/01/2023 Does your family have access to good internet? (Household - for ages 0-17 years) Not on file 10/01/2023 Social Connections Answer Date Recorded How often do you feel lonely or isolated from those around you? (Adult - for ages 18 years and over) Not on file 10/01/2023 Sex and Gender Information Value Date Recorded Sex Assigned at Not on file Gender Identity Not on file Sexual Orientation Not on file Job Start Date Occupation Industry Not on file Not on file Not on file documented as of this encounter Last Filed Vital Signs Vital Sign Reading Time Taken Comments Blood Pressure 90/60 11/22/2023 1:27 PM EDT Pulse 72 11/22/2023 1:27 PM EDT Temperature 36.6 C (97.9 F) 11/22/2023 1:27 PM ED T Respiratory Rate 16 11/22/2023 1:27 PM EDT Oxygen Saturation - - Inhaled Oxygen Concentration - - Weight 40.5 kg (89 lb 3.2 oz) 11/22/2023 1:27 PM EDT Height - - Body Mass Index 16.31 01/16/2023 3:54 PM EDT documented in this encounter Progress Notes * Helena Carver MD - 11/22/2023 1:47 PM EDT SUBJECTIVE: Ana Cristina Lagos is a 73 year old female. Chief Complaint Patient presents with Acute Last started with nausea, vomiting and diarrhea, weakness-started feeling better earlier this week. Since being sick has been having difficulty swallowing water-improving some HPI: Patient presents today for acute appointment with symptoms of some nausea vomiting diarrhea which started last and lasted for about 5 days last episode was on Saturday or Saturday. Had notbeen eating well, lost weight, had regular bowel movement today. Has been drinking a lot of water, mixed with orange juice, Gatorade and soft foods. States after the episode of vomiting she had a discomfort in her retrosternal area on swallowing and pain in the back, gradually getting better. Has not tried eating any hard foods. Has not tried any OTC acid reducers. Blood pressure noted to be low today, has also lost weight as noted below. Denies symptoms of dizziness, urine is yellowish in color Wt Readings from Last 4 Encounters: 11/22/23 40.5 kg (89 lb 3.2 oz) 01/16/23 44.1 kg (97 lb 1.9 oz) 08/08/22 45.4 kg (100 lb) 07/10/22 45.4 kg (100 lb) BP Readings from Last 4 Encounters: 11/22/23 90/60 01/16/23 116/68 08/08/22 110/64 07/10/22 110/70 Patient Active Problem List Diagnosis Osteoporosis Anxiety state HTN, goal below 140/90 No advance directive on file Tobacco use disorder Depression with anxiety Diverticulosis of colon DYSLIPIDEMIA, GOAL TO BE DETERMINED H/O epistaxis Protein-calorie malnutrition (HCC) PMR (polymyalgia rheumatica) (HCC) Current Outpatient Medications Medication Sig Dispense Refill Cholecalciferol (VITAMIN D3) 2000 units Capsule Take 1 Capsule by mouth in the morning. 90 Cap 1 amoxicillin (AMOXIL) 500 MG Capsule take 4 capsules by mouth ONCE FOR 1 DOSE 1 HOUR BEFORE DENTAL PROCEDURE 4 Cap 3 Acetaminophen ER 650 MG Oral Tablet Extended Release Take 1 Tablet by mouth every 8 hours as needed. amLODIPine Besylate 5 MG Oral Tablet (Norvasc) Take 1 Tablet by mouth in the morning. 90 Tablet 1 Atenolol 50 MG Oral Tablet (Tenormin) Take 1 Tablet by mouth in the morning. 90 Tablet 0 LORazepam 1 MG Oral Tablet (Ativan) take 1/2 tablet by mouth every 8 hours if needed for anxiety 30Tablet 0 No current facility-administered medications for this visit. Review of patient's allergies indicates: Allergen Reactions Hydrocodone Hives Quinolones Other reaction(s): N/V Cyclobenzaprine Other reaction(s): * Nsaids Nausea heart flutters dizy Prednisone Hyper, jittery, insomnia Propoxyphene Other reaction(s): * Sulfa Antibiotics Nausea, vomiting, and diarrhea OBJECTIVE: BP 90/60 | Pulse 72 | Temp 36.6 C (97.9 F) | Resp 16 | Wt 40.5 kg (89 lb 3.2 oz) | BMI 16.31 kg/m | BSA 1.33 m PHYSICAL EXAM: General: alert, healthy, no distress, well developed Neck: supple, no adenopathy OP-mm moist, min coating Heart: regular rhythm and rate,No murmurs. Lungs: lungs clear to auscultation Extremities: no edema Abdomen: Soft, non-tender, 2" incisional hernia upper umb area,reducible, NT, normal bowel sounds, no masses or organomegaly ASSESSMENT/PLAN: Acute gastroenteritis (Primary) - CBC WITH WBC DIFFERENTIAL; Future; Expected date: 11/22/2023 - COMPREHENSIVE METABOLIC PANEL; Future; Expected date: 11/22/2023 - Omeprazole 20 MG Oral Capsule Delayed Release (PriLOSEC); Take 1 Capsule by mouth in the morning.1 hour before the first meal of the day. - UPPER ENDOSCOPY GI REFERRAL OP - Sucralfate 1 GM/10ML Oral Suspension (Carafate); Take 10 mL by mouth in the morning and 10 mL at noon and 10 mL in the evening and 10 mL before bedtime. - LIPASE; Future; Expected date: 11/22/2023 Loss of weight - CBC WITH WBC DIFFERENTIAL; Future; Expected date: 11/22/2023 - COMPREHENSIVE METABOLIC PANEL; Future; Expected date: 11/22/2023 - Omeprazole 20 MG Oral Capsule Delayed Release (PriLOSEC); Take 1 Capsule by mouth in the morning.1 hour before the first meal of the day. - UPPER ENDOSCOPY GI REFERRAL OP - LIPASE; Future; Expected date: 11/22/2023 Esophageal dysphagia - CBC WITH WBC DIFFERENTIAL; Future; Expected date: 11/22/2023 - COMPREHENSIVE METABOLIC PANEL; Future; Expected date: 11/22/2023 - Omeprazole 20 MG Oral Capsule Delayed Release (PriLOSEC); Take 1 Capsule by mouth in the morning.1 hour before the first meal of the day. - UPPER ENDOSCOPY GI REFERRAL OP - Sucralfate 1 GM/10ML Oral Suspension (Carafate); Take 10 mL by mouth in the morning and 10 mL at noon and 10 mL in the evening and 10 mL before bedtime. - LIPASE; Future; Expected date: 11/22/2023 HTN, goal below 140/90 Other specified hypotension Incisional hernia, without obstruction or gangrene Underweight Symptoms have resolved now, having regular bowel movements. Advised adequate hydration at least 6 cups of fluids per day. ?Francesca Nils tear Trial of omeprazole for one-month as well as Carafate liquid, labs as above and schedule endoscopy Discontinue amlodipine due to low blood pressure and weight loss Incision hernia noted, no symptoms related to the same Follow Up: Return in about 4 weeks (around 12/20/2023), or if symptoms worsen or fail to improve, forLabs Today. | For: Labs Today | Check-out note: Cyn f/u PCP -40 min appt needed Nurse Appt 1 wk BP check (This note was completed using the dictation program Fluency Direct. As such, there may be misspellings, word substitutions, or other variations that should not change the essence of the clinical content of this encounter note. If there is need for further clarification, please direct questions to the provider listed above.) Patient and / caregiver verbalize understanding of above instructions and agrees with plan of care. Helena Carver MD 11/22/2023 documented in this encounter Nursing Notes * Venice Campos LPN - 11/22/2023 1:27 PM EDT The patient has been properly identified by confirmation of name and date of . Chief Complaint Patient presents with Acute Last started with nausea, vomiting and diarrhea, weakness-started feeling better earlier this week. Since being sick has been having difficulty swallowing water-improving some documented in this encounter Plan of Treatment Upcoming Encounters Date Type Department Care Team (Late st Contact Info) Description 12/06/2023 11:30 AM EDT Nurse Only Ancillary [facility] [address] [place] [id number] Makayla, Nurse Fam Prac [address] [facility] [place] [phone] 12/25/2023 11:20 AM EDT Office Visit Family Practice [facility] Makayla [address] [place] [address] Corinne Garcia PA-C [address] [facility] [place] [id number] Pending Results Name Type Priority Associated Diagnoses Date /Time LIPASE Lab Routine Acute gastroenteritis Loss of weight Esophageal dysphagia 11/22/2023 2:16 PM EDT Scheduled Orders Name Type Priority Associated Diagnoses Orde r Schedule LIPASE Lab Routine Acute gastroenteritis Loss of weight Esophageal dysphagia Expected: 11/22/2023 (Approximate), Expires: 11/21/2024 Scheduled Referrals Name Type Priority Associated Diagnoses Orde r Schedule UPPER ENDOSCOPY GI REFERRAL OP Referral Within 10 days (routine) Acute gastroenteritis Loss of weight Esophageal dysphagia Ordered: 11/22/2023 Health Maintenance Due Date Last Done Comments Cologuard 1994 Fecal Occult Blood Test 1994 Sigmoidoscopy 1994 Zoster Vaccines (1 of 2) 10/13/1999 Pneumococcal Vaccine: 65+ Years (1 of 1 - PCV) 2014 *BISPHONATE OR OTHER ACCEPTABLE MEDICATION NEEDED FOR OSTEOPOROSIS (REFER TO SMARTSET #1146) 06/19/2015 Colonoscopy 07/29/2015 07/28/2010, 05/27/2009 Colorectal Cancer Screening 07/29/2015 Adult Wellness Visit 10/13/2015 Depression Monitoring 12/15/2022 12/15/2021 Mammogram 01/08/2023 01/08/2022, 12/15, 12/26/2020, Additional history exists COVID-19 Vaccine (2022- season) 2023 02/04/2023, 04/04/2022, 11/10/2021, Additional history exists Influenza Vaccine (FLU shot) (#1) 2023 03/01/2023, 01/17/2022, 12/29/2020, Additional history exists DXA Scan 02/27/2024 02/26/2022, 02/13, 11/16/2004, Additional history exists Albumin/Creatinine Ratio 09/01/2024 09/01/2021 GFR 11/21/2024 11/22/2023, 05/2021, 02/01/2022, Additional history exists Lipid Panel 09/15/2026 09/15/2021, 11/2016, 06/12/2013, Additional history exists DTaP,Tdap,and Td Vaccines (3 - Td or Tdap) 08/27/2027 08/26/2017, 12/25/2006 RETIRED - COLONOSCOPY-EVERY 5 YRS AGES 18-100 Discontinued 07/28/2010, 05/27/2009 VITAMIN D LEVEL ONCE IN A LIFETIME-USE SMARTSET# [id number] Completed 09/27/2021, 09/15/2021, 07/21/2020, Additional history exists HPV (Gardasil) Vaccine Aged Out No lo nger eligible based on patient's age to complete this topic Hepatitis B Vaccine Aged Out No longe r eligible based on patient's age to complete this topic MENINGOCOCCAL (MENACTRA/MENVEO) Aged Out No longer eligible based on patient's age to complete this topic documented as of this encounter Medical Devices Not on filedocumented as of this encounter Results * (ABNORMAL) COMPREHENSIVE METABOLIC PANEL (11/22/2023 2:16 PM EDT) BUN 15 6 - 20 mg/dL 11/22/2023 3:27 PM EDT [facility] 56-02 Creatinine 1.1(H) 0.5 - 1.0 mg/dL 11/22/2023 3:27 PM EDT [facility] [place] [facility]-02 Estimated Glomerular Filtration Rate 55(L) >=60 mL/min 11/22/2023 3:27 PM EDT [facility] 56 Comment:eGFR is calculated b ased on the CKD-EPI 2020 equation. Sodium 136 135 - 146 mmol/L 11/22/2023 3:[address]T [address] Potassium 3.6 3.5 - 5.1 mmol/L 11/22/2023 3:[address] Chloride 92(L) 98 - 107 mmol/L 11/22/2023 3:[address] CO2 29 22 - 32 mmol/L 11/22/2023 3:[address] Anion Gap 15 7 - 15 mmol/L 11/22/2023 3:[address] Glucose 96 70 - 120 mg/dL 11/22/2023 3:[address] Albumin 4.6 3.8 - 5.0 g/dL 11/22/2023 3:[address] AST 65(H) 10 - 35 U/L 11/22/2023 3:[address] Alkaline Phosphatase 81 35 - 130 U/L 11/22/2023 3:[address] Bilirubin, Total 0.7 <=1.2 mg/dL 11/22/2023 3:[address] Calcium 10.3(H) 8.4 - 10.2 mg/dL 11/22/2023 3:[address] Protein 7.0 6.0 - 8.3 g/dL 11/22/2023 3:27 PM EDT [facility] 56 ALT 50(H) 10 - 35 U/L 11/22/2023 3:27 PM T [facility] 56 Blood Venous blood specimen / Unknown Venipuncture / Unknown 11/22/2023 2:16 PM EDT 11/22/2023 2:17 PM EDT Helena Carver MD LAB BLOOD ORDERABLES [address] [place] [address] documented in this encounter Visit Diagnoses Diagnosis Acute gastroenteritis- Primary Other and unspecified noninfectious gastroenteritis and colitis Loss of weight Esophageal dysphagia Dysphagia, pharyngoesophageal phase HTN, goal below 140/90 Unspecified essential hypertension Other specified hypotension Incisional hernia, without obstruction or gangrene Incisional hernia without mention of obstruction or gangrene Underweight documented in this encounter Care Teams Grill Prep Cook Relationship Specialty Start Date End Date Richi Alonzo III, MD [address] [facility] [address] P[facility] - General Family Medicine 08/20/16 documented as of this encounter
--- OUTSIDE RECORDS SUMMARY | 2023-11-27 03:18 | External Medical Summary ---
Author Name Unknown Address Unknown Organization [id number]:[facility] - [address] [place] [address] Laboratory Report Ordering Provider Test Date Status ISAAC ARANDA 11/22/2023 14:16:47 Final Observation Date Value Abnormality Reference (Units ) Status BUN 11/22/2023 14:16:47 15 6-20 (mg/dL) Final Creatinine 11/22/2023 14:16:47 1.1 Above high normal 0.5-1.0 (mg/dL) Final Glomerular filtration rate/1.73 sq M.predicted [Volume Rate/Area] in Serum, Plasma or Blood by Creatinine-based formula (CKD-EPI) 11/22/2023 14:16:47 55 Below low normal >=60 (mL/min) Final eGFR is calculated based on the CKD-EPI 2020 equation. Sodium 11/22/2023 14:16:47 136 135-146 (m mol/L) Final Potassium 11/22/2023 14:16:47 3.6 3.5-5.1 (m mol/L) Final Cl 11/22/2023 14:16:47 92 Below low normal 98- 107 (mmol/L) Final CO2 11/22/2023 14:16:47 29 22-32 (mmo l/L) Final Anion gap 11/22/2023 14:16:47 15 7-15 (mmol /L) Final Glucose 11/22/2023 14:16:47 96 70-120 (mg /dL) Final Albumin 11/22/2023 14:16:47 4.6 3.8-5.0 (g /dL) Final AST (Aspartate aminotransferase) 11/22/2023 14:16:47 65 Above high normal 10-35 (U/L) Final Alk Phos 11/22/2023 14:16:47 81 35-130 (U/ L) Final Bilirubin, Total 11/22/2023 14:16:47 0.7 <=1 .2 (mg/dL) Final Calcium 11/22/2023 14:16:47 10.3 Above high normal 8. 4-10.2 (mg/dL) Final Protein 11/22/2023 14:16:47 7.0 6.0-8.3 (g /dL) Final ALT (Alanine aminotransferase) 11/22/2023 14:16:47 50 Above high normal 10-35 (U/L) Final Performing Location [facility] [address] [place] [address]
--- OUTSIDE RECORDS SUMMARY | 2023-11-27 03:18 | External Medical Summary ---
Author Name Unknown Address Unknown Organization [id number]:[facility] [address] Laboratory Report Ordering Provider Test Date Status ISAAC ARANDA 11/22/2023 14:16:47 Final Observation Date Value Abnormality Reference (Units ) Status WBC, Total 11/22/2023 14:16:47 7.40 4.00-10.8 0 (K/uL) Final RBC 11/22/2023 14:16:47 4.07 3.85-5.15 (M/uL) Final Hemoglobin 11/22/2023 14:16:47 13.5 12.0-15.3 (g/dL) Final HCT 11/22/2023 14:16:47 40.1 36.0-45.2 (%) Final MCV 11/22/2023 14:16:47 98.5 81.5-97.5 (fL) Final MCH 11/22/2023 14:16:47 33.2 27.0-34.0 (pg) Final MCHC 11/22/2023 14:16:47 33.7 32.0-36.0 (g/dL) Final RDW 11/22/2023 14:16:47 12.9 11.5-15.5 (%) Final Platelets 11/22/2023 14:16:47 298 140-400 (K /uL) Final MPV 11/22/2023 14:16:47 10.1 6.6-11.1 ( fL) Final Performing Location [facility] [place] [address]
--- OUTSIDE RECORDS SUMMARY | 2023-11-27 03:18 | External Medical Summary ---
Author Name Unknown Address Unknown Organization [id number]:[facility] [place] [address] [place] [address] [place] [address] Laboratory Report Ordering Provider Test Date Status ISAAC ARANDA 11/22/2023 14:16:47 Final Observation Date Value Abnormality Reference (Units ) Status Lipase 11/22/2023 14:16:47 40 13-60 (U/L ) Final Performing Location [facility] [place] [address] [address]
--- OUTSIDE RECORDS SUMMARY | 2023-11-27 03:18 | External Medical Summary ---
Author Name Unknown Address Unknown Organization K09:[facility] [place] [place] [address] Laboratory Report Ordering Provider Test Date Status ISAAC ARANDA 11/22/2023 14:16:47 Final Observation Date Value Abnormality Reference (Units ) Status SYNC LEUKOCYTES IN BLOOD BY AUTOMATED COUNT 11/22/2023 14:16:47 7.40 4.00-10.80 (K/uL) Final Segs 11/22/2023 14:16:47 57.9 40.0-75.0 (%) Final Lymphs % 11/22/2023 14:16:47 20.8 18.0-42.0 (%) Final Monos 11/22/2023 14:16:47 18.6 Above high normal 1.0-11.0 (%) Final Eosinophils 11/22/2023 14:16:47 2.2 0.0-6.0 (%) Final Basos 11/22/2023 14:16:47 0.5 0.0-2.0 (%) Final Absolute Segs 11/22/2023 14:16:47 4.28 1.80-7.70 (K/uL) Final Lymphs, absolute 11/22/2023 14:16:47 1.54 1.00-4.80 (K/ul) Final Monos, Abs 11/22/2023 14:16:47 1.38 Above high normal 0.00-1.10 (K/uL) Final Eos, Abs 11/22/2023 14:16:47 0.16 0.00-0.70 (K/uL) Final Basos, Abs 11/22/2023 14:16:47 0.04 0.00-0.20 (K/uL) Final Performing Location [facility] [place] [address]
--- OUTSIDE RECORDS SUMMARY | 2023-11-27 03:18 | External Medical Summary | Summary of Care ---
Author Name Unknown Organization [facility] Address [address] [place] [address] Phone [phone] Care Team Providers Care Manager Marketing Communication Name Role Phone Cheri ESPINO MD, Richi Sanches Primary Care Provider [phone] Reason for Visit * Reason Comments Outpatient Testing Encounter Details Date Type Department Care Team (Late st Contact Info) Description 11/22/2023 2:20 PM EDT Laboratory Laboratory [facility] [address] [place] [address] [facility] [address] [place] [address] Acute gastroenteritis; Loss of weight; Esophageal dysphagia Allergies Active Allergy Reactions Criticality Noted Date [...] 10/09/2023 Active LORazepam 1 MG Oral Tablet (Ativan)Indications :Anxiety state take 1/2 tablet by mouth every 8 hours if needed for anxiety 30 Tablet 11/20/2023 Active Omeprazole 20 MG Oral Capsule Delayed Release (PriLOSEC)Indicatio ns:Acute gastroenteritis,Los s of weight,Esophageal dysphagia Take 1 Capsule by mouth in the morning. 1 hour before the first meal of the day. 30 Capsule 1 11/22/2023 Active Sucralfate 1 GM/10ML Oral Suspension (Carafate)Indicatio ns:Acute gastroenteritis,Eso phageal dysphagia Take 10 mL by mouth in the morning and 10 mL at noon and 10 mL in the evening and 10 mL before bedtime. 420 mL 11/22/2023 Active documented as of this encounter (statuses as [...] mRNA, LNP-s, No Pre serve, 2-Dose Series (Pfizer) 11/10/2021,03/01/2021,08/17/2020,2020 Covid-19, Mrna, Lnp-s, Pf, B ivalent, [...] on file documented as of this encounter Plan of Treatment Upcoming Encounters Date Type Department Care Team (Late st Contact Info) Description 12/06/2023 11:30 AM EDT Nurse Only Ancillary [facility] [place] [address] [facility] [place] [address] Makayla Nurse Fam [facility] [address] [facility] [place] [address] 12/25/2023 11:20 AM EDT Office [place] [facility] [place] [address] [facility] [place] [address] Corinne Garcia PA-C [address] [facility] [place] [address] Pending Results Name Type Priority Associated Diagnoses Date /Time COMPREHENSIVE METABOLIC PANEL Lab Routine Acute gastroenteritis Loss of weight Esophageal dysphagia 11/22/2023 2:16 PM EDT LIPASE Lab Routine Acute gastroenteritis Loss of weight Esophageal dysphagia 11/22/2023 2:16 PM EDT Health Maintenance Due Date Last Done Comments [...] 01/08/2023 01/08/2022, 12/15, 12/26/2020, Additional history exists GFR 02/14/2023 02/14/2022, 01/14, 09/27/2021, Additional history exists COVID-19 Vaccine (2022- season) 2023 02/04/2023, 04/04/2022, 11/10/2021, Additional history exists Influenza Vaccine (FLU shot) (#1) 2023 03/01/2023, 01/17/2022, 12/29/2020, Additional history exists DXA Scan 02/27/2024 02/26/2022, 02/13, 11/16/2004, Additional history exists Albumin/Creatinine Ratio 09/01/2024 09/01/2021 Lipid Panel 09/15/2026 09/15/2021, 11/2016, 06/12/2013, Additional history exists DTaP,Tdap,and Td Vaccines (3 - Td or Tdap) 08/27/2027 08/26/2017, 12/25/2006 RETIRED - COLONOSCOPY-EVERY 5 YRS AGES 18-100 Discontinued 07/28/2010, 05/27/2009 VITAMIN D LEVEL ONCE IN A LIFETIME-USE SMARTSET# [id number] Completed 09/27/2021, 09/15/2021, 07/21/2020, Additional history exists [...] Not on filedocumented as of this encounter Procedures Procedure Name Priority Date/Time Associated Diagnosis Comments DIFFERENTIAL, AUTOMATED Routine 11/22/2023 2:16 PM EDT Acute gastroenteritis Loss of weight Esophageal dysphagia CBC Routine 11/22/2023 2:16 PM EDT Acute gastroenteritis Loss of weight Esophageal dysphagia CBC Routine 11/22/2023 2:16 PM EDT Acute gastroenteritis Loss of weight Esophageal dysphagia documented in this encounter Results * (ABNORMAL) DIFFERENTIAL, AUTOMATED (11/22/2023 2:16 PM EDT) WBC 7.40 4.00 - 10.80 K/uL 11/22/2023 2:25 PM EDT [facility] 56[facility]02 Neutrophils % 57.9 40.0 - 75.0 % 11/22/2023 2:25 PM EDT [facility] 56-02 Lymphocytes % 20.8 18.0 - 42.0 % 11/22/2023 2:25 PM EDT [facility] 56-02 Monocytes % 18.6(H) 1.0 - 11.0 % 11/22/2023 2:25 PM EDT [facility] 56-02 Eosinophils % 2.2 0.0 - 6.0 % 11/22/2023 2:25 PM EDT [facility] 56-02 Basophils % 0.5 0.0 - 2.0 % 11/22/2023 2:25 PM EDT [facility]-02 Absolute Neutrophils 4.28 1.80 - 7.70 K/uL 11/22/2023 2:25 PM EDT [facility]-02 Absolute Lymphocytes 1.54 1.00 - 4.80 K/ul 11/22/2023 2:25 PM EDT [facility] 56-02 Absolute Monocytes 1.38(H) 0.00 - 1.10 K/uL 11/22/2023 2:25 PM EDT [facility]02 Absolute Eosinophils 0.16 0.00 - 0.70 K/uL 11/22/2023 2:25 PM EDT [facility]02 Absolute Basophils 0.04 0.00 - 0.20 K/uL 11/22/2023 2:25 PM EDT [facility] 56-02 Blood Venous blood specimen / Unknown Venipuncture / Unknown 11/22/2023 2:16 PM EDT 11/22/2023 2:17 PM EDT Helena Carver MD LAB BLOOD ORDERABLES [facility] [address] [place] [address] * CBC (11/22/2023 2:16 PM EDT) [facility] WBC 7.40 4.00 - 10.80 K/uL 11/22/2023 2:25 PM EDT [facility] 56 RBC 4.07 3.85 - 5.15 M/uL 11/22/2023 2:25 PM EDT [facility] 56 HGB 13.5 12.0 - 15.3 g/dL 11/22/2023 2:25 PM EDT [facility] 56 HCT 40.1 36.0 - 45.2 % 11/22/2023 2:25 PM EDT [facility] 56 MCV 98.5 81.5 - 97.5 fL 11/22/2023 2:25 [address] EDT [address] MCH 33.2 27.0 - 34.0 pg 11/22/2023 2:25 PM EDT [facility] 56 MCHC 33.7 32.0 - 36.0 g/dL 11/22/2023 2:25 PM EDT [facility] 56 RDW 12.9 11.5 - 15.5 % 11/22/2023 2:25 PM EDT [facility] 56 PLT 298 140 - 400 K/uL 11/22/2023 2:25 PM EDT [address] MPV 10.1 6.6 - 11.1 fL 11/22/2023 2:25 PM EDT [facility] 56 Blood Venous blood specimen / Unknown Venipuncture / Unknown 11/22/2023 2:16 PM EDT 11/22/2023 2:17 PM EDT Helena Carver MD LAB BLOOD ORDERABLES [facility] [address] [facility] [place] [address] documented in this encounter Visit Diagnoses Diagnosis Acute gastroenteritis Other and unspecified noninfectious gastroenteritis and colitis Loss of weight Esophageal dysphagia Dysphagia, pharyngoesophageal phase documented in this encounter Care Teams Manager Marketing Communication Relationship Specialty Start Date End Date Richi Alonzo III, MD [address] [facility] [place] [address] PCP - General Family Medicine 08/20/16 documented as of this encounter
--- OUTSIDE RECORDS SUMMARY | 2023-11-27 03:19 | External Medical Summary | Summary of Care ---
Author Name Unknown Organization [facility] Address [address] [place] [address] Phone [phone] Care Team Providers Care Counsellors Name Role Phone Cheri ESPINO MD, John E Primary Care Provider [phone] Reason for Visit * Reason Onset Date Comments Medication Refill 11/19/2023 Encounter Details Date Type Department Care Team (Late st Contact Info) Description 11/19/2023 Refill Family Practice [facility] [place] [address] [place] [address] Margret Romero III, MD [address] [place] [address] Anxiety state Allergies Active Allergy Reactions Criticality Noted Date Comments Cyclobenzaprine 12/05/2021 Other reaction(s): * Hydrocodone Hives High 01/27/1999 Nsaids 02/21/2000 Nausea heart flutters dizy Prednisone 03/28/2022 Hyper, jittery, insomnia Propoxyphene 01/26/2018 Other reaction(s): * Quinolones Medium 01/26/2018 Other reaction(s): N/V Sulfa Antibiotics 01/21/2013 Nausea, vomiting, and diarrhea documented as of this encounter (statuses as of 11/20/2023) Medications Medication Sig Dispensed Refills Start Date [...] mouth every 8 hours as needed. Active amLODIPine Besylate 5 MG Oral Tablet (Norvasc) Take 1 Tablet by mouth in the morning. 90 Tablet 1 06/19/2023 Active Atenolol 50 MG Oral Tablet (Tenormin) Take 1 Tablet by mouth in the morning. 90 Tablet 10/09/2023 Active LORazepam 1 MG Oral Tablet (Ativan)Indicatio ns:Anxiety state take 1/2 tablet by mouth every 8 hours if needed for anxiety 30 Tablet 11/20/2023 Active LORazepam 1 MG Oral Tablet (Ativan)Indicatio ns:Anxiety state take 1/2 tablet by mouth every 8 hours if needed for anxiety 30 Tablet 10/09/2023 11/19/2023 Discontinued (Refill) documented as of this encounter (statuses as of 11/20/2023) Active Problems Problem Noted Date Diagnosed Date [...] as of this encounter (statuses as of 11/20/2023) Resolved Problems Problem Noted Date Diagnosed Date Resolved Date Palpitations 01/13/2012 03/31/2018 Anxiety state 01/13/2012 05/13/2018 Asthma with severity to be determined 01/13/2007 08/20/2016 Overview: ICD-10 update of inactive term Allergic rhinitis 01/13/2007 05/13/2018 Mixed dyslipidemia 07/22/2003 9 Overview: Per Lipid Taxonomy. PATHOLOGICAL FRACTURE OF VERTEBRAE 07/22/2003 02/21/2017 documented as of this encounter (statuses as of 11/20/2023) Immunizations Name Administration Dates Next Due COVID-19 mRNA, LNP-s, No Pre serve, 2-Dose Series ([employer]) 11/10/2021,03/01/2021,08/17/2020,2020 Covid-19, Mrna, Lnp-s, Pf, B ivalent, [...] on file documented as of this encounter Miscellaneous Notes * Telephone Encounter - Margret Romero III, MD - 11/20/2023 12:14 PM EDTSigned Prescriptions: Disp Refills LORazepam 1 MG Oral Tablet (Ativan) 30 Tab*0 Sig: take 1/2 tablet by mouth every 8 hours if needed for anxietyAuthorizing Provider: MARGRET ROMERO III * Telephone Encounter - Kimmy Carbajal [facility] - 11/20/2023 12:05 PM EDTPending Prescriptions: Disp Refills LORazepam 1 MG Oral Tablet (Ativan) 30 Tab*0 Sig: take 1/2 tablet by mouth every 8 hours if needed for anxiety * Telephone Encounter - Kimmy Carbajal [facility] - 11/20/2023 12:05 PM EDT I have reviewed the patients controlled substance dispensing history in the Prescription Drug Monitoring Program in compliance with the [facility] regulations before prescribing a controlled substance. PDMP checked on 11/20/2023. Pending Prescriptions: Disp Refills LORazepam 1 MG Oral Tablet (Ativan) 30 Tab*0 Sig: take 1/2 tablet by mouth every 8 hours if needed for anxiety Last Visit: 01/16/2023 (in office), Visit date not found (telemedicine) Next Visit: Visit date not found Date medication was last filled: 10/09/23 Date medication is due for refill: 10/28/23 Pharmacy: [id number] Is this request for a controlled substance? Yes and Urine Drug Screen Not completed Toxicology results: No results found for this or any previous visit. Please approve if appropriate. Demetrius, Kimmy Carbajal Clinical Pharmacist [facility] ([facility] [phone] 11/20/2023, 12:05 PM * Telephone Encounter - Nydia Snow, inter com installer - 11/19/2023 11:21 AM EDT Did you pend patient's preferred pharmacy and medication before forwarding?yes Pharmacy: [id number] Pending Prescriptions: Disp Refills LORazepam 1 MG Oral Tablet (Ativan) 30 Tab*0 Sig: take 1/2 tablet by mouth every 8 hours if needed for anxiety Last Visit: 01/16/2023 (in office), Visit date not found (telemedicine) Next Visit: Visit date not found If no future appointments scheduled, and last appointment is greater than a year ago, please schedule patient for a follow-up appointment Last date the medication was ordered: 10/09/2023 Is this request for a controlled substance?Yes, What was the last refill date 10/09/2023 w/ quantity 30 and dosage 1 and Urine Drug Screen Not completed Urine Drug Screen:No results found for this or any previous visit. Patient Phone Numbers Labs: Lab Results Component Value Date/Time CREAT 0.8 02/14/2022 12:54 PM CREAT 1.1 (H) 01/28/2020 03:16 PM POTASSIUM 4.6 02/14/2022 12:54 PM POTASSIUM 4.7 01/28/2020 03:16 PM TSH 0.74 02/14/2022 12:54 PM TSH 0.96 01/28/2019 12:54 PM TSH 0.95 06/30/1996 12:41 PM LDLCALC 86 09/15/2021 10:15 AM LDLCALC 122 08/20/2016 10:07 AM LDLDIRECT NOT APPLICABLE 08/20/2016 10:07 AM LDLDIRECT 157 (H) 07/22/2003 11:06 AM ALT <5 (L) 02/01/2022 02:14 PM ALT 42 (H) 07/31/2018 11:48 AM documented in this encounter Plan of Treatment Health Maintenance Due Date Last Done Comments [...] 01/14, 09/27/2021, Additional history exists COVID-19 Vaccine ( season) 2023 02/04/2023, 04/04/2022, 11/10/2021, Additional history exists Influenza Vaccine (FLU shot) (#1) 2023 03/01/2023, 01/17/2022, 12/29/2020, Additional history exists DXA Scan 02/27/2024 02/26/2022, 02/13, 11/16/2004, Additional history exists Albumin/Creatinine Ratio 09/01/2024 09/01/2021 Lipid Panel 09/15/2026 09/15/2021, 05/0 11/2016, 06/12/2013, Additional history exists DTaP,Tdap,and Td Vaccines (3 - Td or Tdap) 08/27/2027 08/26/2017, 12/25/2006 RETIRED - COLONOSCOPY-EVERY 5 YRS AGES 18-100 Discontinued 07/28/2010, 05/27/2009 VITAMIN D LEVEL ONCE IN A LIFETIME-USE SMARTSET# [id number] Completed 09/27/2021, 09/15/2021, 07/21/2020, Additional history exists [...] Not on filedocumented as of this encounter Visit Diagnoses Diagnosis Anxiety state Anxiety state, unspecified documented in this encounter Care Teams Counsellors Relationship Specialty Start Date End Date Margret Romero III, MD [address] [address] PCP - General Family Medicine 08/20/16 documented as of this encounter
--- OUTSIDE RECORDS SUMMARY | 2023-11-27 03:19 | External Medical Summary | Continuity of Care Document ---
Author Name Unknown Organization [id number] Address [address] [place] [id number] Care Team Providers Care Agricultural Extension Educator Name Role Phone Shellie Ritter Primary Care Physician [phone] [id number] Date[facility]s): 09/26/23 - 09/26/23 [facility] [address] [place] [id number] [facility] [address] [place] [id number] Encounter Diagnosis Pain in both feet(Discharge Diagnosis) - 09/26/23 Hallux valgus, bilateral(Discharge Diagnosis) - 09/26/23 Metatarsalgia of both feet(Discharge Diagnosis) - 09/26/23 Arthritis of both feet(Discharge Diagnosis) - 09/26/23 Peripheral vascular disease(Discharge Diagnosis) - 09/26/23 Discharge Disposition: Home or Self Care Attending Physician: YARON Ritter Christina L Referring Physician: YARON Ritter Christina L Allergies, Adverse Reactions, Alerts Substance Criticality Severity Reaction Reaction Severity Status Flexeril unknown Active HYDROcodone unknown Active Assessment and Plan Extracted from: Title:Orthopaedics Office Visit Note Author:Taylor Saxena DPM, Christina L Date:09/26/23 1.Pain in both feet Discussed with patient she has arthritic changes in both of her feet secondary to her bunionsand hammertoe. I feel she is not a surgical candidate given her medical history and advanced age but I do feel she would benefitfrom orthopedic shoes with custom molded insolesto better support her feet especially underdigits 2 through 5 she has prominent metatarsal heads and atrophy of her fat padI do feel more support would be beneficial in the way of a custom molded insole. Patient understanding provided referralandprescription for both orthopedic shoes and custom insoles recommended to see Simin Stein and was provided contact information. Patient had no further questions or concerns x-rays reviewed recommend follow-upin 4 to 5 months. 23-minute initial visit,6-minute preparation time including chart review and x-ray review,10 minutes [id number] 2.Hallux valgus, bilateral 3.Metatarsalgia of both feet 4.Arthritis of both feet 5.Peripheral vascular disease Medications amLODIPine 5 mg oral tablet Start: 09/26/23 2:27:00 PM EDT, 1 tab, PO, Daily Start Date: 09/26/23 Status: Ordered atenolol 50 mg oral tablet TAKE 1 TABLET BY MOUTH EVERY MORNING Start Date: 09/26/23 Status: Ordered LORazepam 1 mg oral tablet TAKE 1/2 TABLET BY MOUTH EVERY 8 HOURS IF NEEDED FOR ANXIETY Start Date: 09/26/23 Status: Ordered Mental Status 09/26/23 Barriers to Learning one year None evide nt Mandatory Health Literacy Documentation Yes Health Literacy Communication Barriers N ever Primary Language Setswana Problem List Condition Confirmation Course Effective Dates Status H ealth Status Informant Arthritis of both feet Confirmed Active Pain in both feet Confirmed Active Hallux valgus, bilateral Confirmed Active Metatarsalgia of both feet Confirmed Active Peripheral vascular disease Confirmed Active Diagnosis Diagnosis Type Effective Dates Health Status Clinical Service Informant Hallux valgus, bilateral Discharge Diagnosis 09/26/23 Non-Specified Arthritis of both feet Discharge Diagnosis 09/26/23 Non-Specified Pain in both feet Discharge Diagnosis 09/26/23 Non-Specified Metatarsalgia of both feet Discharge Diagnosis 09/26/23 Non-Specified Peripheral vascular disease Discharge Diagnosis 09/26/23 Non-Specified Vital Signs Most recent to oldest [Reference Range]: 1 Height 154.5 cm (09/26/23 2:31 PM) Patient Weight 43.8 kg (09/26/23 2:31 PM) Body Mass Index 18.35 kg/m2 (09/26/23 2:31 PM) Social History Social History Type Response Smoking Status Never smoked cigaret michael Sex Female Ortho Outpt Note * YARON Ritter Christina L: PERFORM Event Display: Ortho Outpt Note Authored Date: [id number] Primary Care Provider No, Referring Chief Complaint b/l foot pain History of Present Illness Patient is a very -fdgy-ugs female presenting today for initial evaluation of bilateralfoot pain. Patient is retired. [facility] Patient notes a history of pain in the balls of her feet always painfulelevation of feet improvesthe pain Past medical historydiverticulitishypertension left arm numbness left hip pain pressure ulcer left hip. Surgical historydental surgery. Family historyhypertension. Social historypositive for cigarette usepositive for alcohol use. Allergiesreviewedincludes cyclobenzaprine hydrocodone propoxyphene quinolones. Medicationsreviewed Review of Systems Unexpected weight loss cataracts Physical Exam Vitals & Measurements HT:154.5cm WT:43.8kg WT:43.800kg(Dosing) BMI:18.35 Problem focused bilateral feet: Dorsalis pedis pulse difficult to palpatefaintly palpable on right and nonpalpable on left, posterior tibial pulse nonpalpable,capillary refill time less than 3 seconds, skin turgor good to distal extremities,pedal hair is absent, skin is very thin varicosities present bilateral lower extremities. Gross sensation intact all digits of both feet. There are no open wounds present on the foot. History of severe hallux valgus deformity bilaterally patient is not a surgical candidate,deformities are nonreducible to neutral patient has significant pain of the bunion deformitybut also of metatarsals 2 through 5 bilateral feetsecondary to fat pad atrophy and metatarsalgiapatient does develop callus submetatarsal 5 bilateral feet as well as callus along medial hallux been asked that we did not be removed she does receive regular pedicuresand at 1 point felt that the calluses removed were removed so much that she no longer had any padding for the foot and actually made her foot more tender. She does havean older pair of orthopedic shoes whichshe notes at 1 point were very helpfulbut no longer helpful as they are nonsupportiveshe will require new orthopedic shoes and insoles. X-ray dictation 3 viewsbilateral feet: 3 views of bilateral feetshow no acute fractures or dislocationshallux valgus deformity notable bilateral first metatarsal phalangeal jointswith increased first intermetatarsal angle is increased hallux abductus anglesesamoids deviated laterally into the first interspace. Lateral viewof the left foot showsbullet hole sinus tarsi with minimal midfoot arthritissimilar findings on the rightwith hammertoe deformityof second toe. Bones appear to have an osteopenic/osteoporotic appearance. I personally performed the interpretation of 3 views of bilateral feet. Assessment/Plan 1.Pain in both feet Discussed with patient she has arthritic changes in both of her feet secondary to her bunionsand hammertoe. I feel she is not a surgical candidate given her medical history and advanced age butI do feel she would benefitfrom orthopedic shoes with custom molded insolesto better support her feet especially underdigits 2 through 5 she has prominent metatarsal heads and atrophy of her fat padI do feel more support would be beneficial in the way of a custom molded insole. Patient understanding provided referralandprescription for both orthopedic shoes and custom insoles recomme nded to see Simin Stein and was provided contact information. Patient had no further questions or concerns x-rays reviewed recommend follow-upin 4 to 5 months. 23-minute initial visit,6-minute preparation time including chart review and x-ray review,10minutes [id number] 2.Hallux valgus, bilateral 3.Metatarsalgia of both feet 4.Arthritis of both feet 5.Peripheral vascular disease Problem List/Past Medical History Ongoing Arthritis of both feet Hallux valgus, bilateral Metatarsalgia of both feet Pain in both feet Peripheral vascular disease Medications amLODIPine(amLODIPine 5 mg oral tablet), 5 mg= 1 tab, PO, Daily atenolol(atenolol 50 mg oral tablet) LORazepam(LORazepam 1 mg oral tablet) Allergies Flexerilunknown HYDROcodoneunknown Social History Smoking Status Never smoked cigarettes Recommendations Health Maintenance Pending(in the next year) OverDue Adult Influenza Vaccine due10/12/22and every 1year Due Medicare Annual Wellness Visit due09/26/23and every 1year Satisfied(in the past 1 year) There are no satisfied recommendations within the defined date range Electronic Signature on File CC: Richi Alonzo MD [address] [facility] [id number] * Electronically Reviewed/Signed by: Shellie Ritter DPM Author Signature Dt/Tm:09/26/2023 03:10 PM Division of Sports Medicine CLR Patient Care team information Care Team Personnel Name: YARON Ritter, Shellie Manzo Position: Physician - Podiatry Member Role: Primary Care Provider Address: Address: [facility] [address] [place] [address] [place]
--- OUTSIDE RECORDS SUMMARY | 2023-11-27 03:19 | External Medical Summary | Summary of Care ---
Author Name Unknown Organization [facility] Address [address] [place] [address] Phone [phone] Care Team Providers Care [employer] [place] Shearer Name Role Phone Cheri ESPINO MD, John E Primary Care Provider [phone] Reason for Visit * Reason Onset Date Comments Medication Refill 10/08/2023 Encounter Details Date Type Department Care Team (Late st Contact Info) Description 10/08/2023 Refill Family Practice [facility] [place] [address] [place] [address] Margret Romero III, MD [address] [place] [address] Anxiety state Allergies Active Allergy Reactions Criticality Noted Date Comments Cyclobenzaprine 12/05/2021 Other reaction(s): * Hydrocodone Hives High 01/27/1999 Nsaids 02/21/2000 Nausea heart flutters dizy Prednisone 03/28/2022 Hyper, jittery, insomnia Propoxyphene 01/26/2018 Other reaction(s): * Quinolones Medium 01/26/2018 Other reaction(s): N/V Sulfa Antibiotics 01/21/2013 Nausea, vomiting, and diarrhea documented as of this encounter (statuses as of 10/09/2023) Medications Medication Sig Dispensed Refills Start Date [...] if needed for anxiety 30 Tablet 10/09/2023 Active Atenolol 50 MG Oral Tablet (Tenormin) take 1 tablet by mouth every morning 90 Tablet 3 10/22/2022 10/08/2023 Discontinued (Refill) LORazepam 1 MG Oral Tablet (Ativan)Indicatio ns:Anxiety state take 1/2 tablet by mouth every 8 hours if needed for anxiety 30 Tablet 09/13/2023 10/08/2023 Discontinued (Refill) documented as of this encounter (statuses as of 10/09/2023) Active Problems Problem Noted Date Diagnosed Date [...] as of this encounter (statuses as of 10/09/2023) Resolved Problems Problem Noted Date Diagnosed Date Resolved Date Palpitations 01/13/2012 03/31/2018 Anxiety state 01/13/2012 05/13/2018 Asthma with severity to be determined 01/13/2007 08/20/2016 Overview: ICD-10 update of inactive term Allergic rhinitis 01/13/2007 05/13/2018 Mixed dyslipidemia 07/22/2003 9 Overview: Per Lipid Taxonomy. PATHOLOGICAL FRACTURE OF VERTEBRAE 07/22/2003 02/21/2017 documented as of this encounter (statuses as of 10/09/2023) Immunizations Name Administration Dates Next Due COVID-19 [...] encounter Miscellaneous Notes * Telephone Encounter - Chris Simmons DO - 10/09/2023 11:10 AM EDTSigned Prescriptions: Disp Refills Atenolol 50 MG Oral Tablet (Tenormin) 90 Tab*0 Sig: Take 1 Tablet by mouth in the morning.Authorizing Provider: MARGRET ROMERO III User: RO TURNERLORazepam 1 MG Oral Tablet (Ativan) 30 Tab*0 Sig: take 1/2 tablet by mouth every 8 hours if needed for anxietyAuthorizing Provider: CHRIS SIMMONS * Telephone Encounter - Chris Simmons DO - 10/09/2023 11:10 AM EDTSigned Prescriptions: Disp Refills Atenolol 50 MG Oral Tablet (Tenormin) 90 Tab*0 Sig: Take 1 Tablet by mouth in the morning. Authorizing Provider: MARGRET ROMERO III User: RO TURNER LORazepam 1 MG Oral Tablet (Ativan) 30 Tab*0 Sig: take 1/2 tablet by mouth every 8 hours if needed for anxiety Authorizing Provider: CHRIS SIMMONS * Telephone Encounter - Dmitriy Little PHARM Tech - 10/09/2023 10:59 AM EDT Received message from [facility] regarding patient needing labs. Call Placed, Pt was agreeable to have labs drawn but would prefer to walk-in at their convenience. Thank you, Dmitriy Little Photofinishing Laboratory Worker [email or web address] 10/09/2023, 10:59 AM * Telephone Encounter - Ro Turner [facility] - 10/09/2023 10:04 AM EDT Pending Prescriptions: Disp Refills LORazepam 1 MG Oral Tablet (Ativan) 30 Tab*0 Sig: take 1/2 tablet by mouth every 8 hours if needed for anxiety Signed Prescriptions: Disp Refills Atenolol 50 MG Oral Tablet (Tenormin) 90 Tab*0 Sig: Take 1 Tablet by mouth in the morning. Authorizing Provider: MARGRET ROMERO III Ordering Use r: RO TURNER Electronically signed by Ro Turner [facility] at 10/09/2023 10:04 AM EDT * Telephone Encounter - Ro Turner [facility] - 10/09/2023 10:03 AM EDT Techs---Provided 90 days supply with 0 refill(s). Per refill protocol patient should have BMP on file within past year. Reviewed AMP report, Care Gaps/Health Maintenance, medications list, and for any routine labs typically ordered for this patient. Lab orders placed. Please contact patient to advise of labs ordered for blood draw. Fasting is not required. Advise toobtain labs before requesting the next refill. I have reviewed the patients controlled substance dispensing history in the Prescription Drug Monitoring Program in compliance with the [facility] regulations before prescribing a controlled substance. PDMP checked on 10/09/2023. Pending Prescriptions: Disp Refills LORazepam 1 MG Oral Tablet (Ativan) 30 Tab*0 Sig: take 1/2 tablet by mouth every 8 hours if needed for anxiety Last Visit: 01/16/2023 (in office), Visit date not found (telemedicine) Next Visit: Visit date not found Date medication was last filled: 09/12 Date medication is due for refill: 10/02 Pharmacy: [facility] [id number] [place] [address] Is this request for a controlled substance? Yes and Urine Drug Screen Not completed Toxicology results: No results found for this or any previous visit. Please approve if appropriate. Thank you, Ro Turner, Luisito. Clinical Pharmacist [facility] ([facility]) 10/09/2023, 10:03 AM Electronically signed by Ro Turner [facility] at 10/09/2023 10:04 AM EDT * Telephone Encounter - Dee Salazar PHARM Tech - 10/08/2023 5:42 PM EDT Did you pend patient's preferred pharmacy and medication before forwarding?yes Pharmacy: [facility] [id number] Pending Prescriptions: Disp Refills Atenolol 50 MG Oral Tablet (Tenormin) 90 Tab*3 Sig: Take 1 Tablet by mouth in the morning. In the morning.. LORazepam 1 MG Oral Tablet (Ativan) 30 [...] appointment Last date the medication was ordered: 10/22/22, 09/13/23 Is this request for a controlled substance?Yes, What was the last refill date 09/13/23 w/ quantity 30 and dosage 1 mg and Urine Drug Screen Not completed Urine [...] 07/29/2015 07/28/2010, 05/27/2009 Colorectal Cancer Screening 07/29/2015 Depression Monitoring 12/15/2022 12/15/2021 Mammogram 01/08/2023 01/08/2022, 12/15, 12/26/2020, Additional history exists GFR 02/14/2023 02/14/2022, 01/14, 09/27/2021, Additional history exists COVID-19 Vaccine ( season) 2023 02/04/2023, 04/04/2022, 11/10/2021, Additional history exists DXA Scan 02/27/2024 02/26/2022, 02/13, 11/16/2004, Additional history exists Albumin/Creatinine Ratio 09/01/2024 09/01/2021 Lipid Panel 09/15/2026 09/15/2021, 11/2016, 06/12/2013, Additional history exists DTaP,Tdap,and Td Vaccines (3 - Td or Tdap) 08/27/2027 08/26/2017, 12/25/2006 RETIRED - COLONOSCOPY-EVERY 5 YRS AGES 18-100 Discontinued 07/28/2010, 05/27/2009 VITAMIN D LEVEL ONCE IN A LIFETIME-USE SMARTSET# [id number] Completed 09/27/2021, 09/15/2021, 07/21/2020, Additional history exists Influenza Vaccine (FLU shot) Completed 03/01/2023, 01/17/2022, 12/29/2020, Additional history exists GARDASIL-HPV IMMUNIZATION SERIES Aged Out No longer eligible based on patient's age to complete this topic Hepatitis B Aged Out No longer eligi ble based on patient's age to complete this topic MENINGOCOCCAL (MENACTRA/MENVEO) Aged Out No longer eligible based on patient's age to complete this topic documented as of this encounter Medical Devices Not on filedocumented as of this encounter Visit Diagnoses Diagnosis Anxiety state Anxiety state, unspecified documented in this encounter Care Teams [employer] Shearer Relationship Specialty Start Date End Date Margret Romero III, MD [address] [place] [address] PCP - General Family Medicine 08/20/16 documented as of this encounter
[2023-11-27] MEDS: PIPERACILLIN/TAZOBACTAM 4.5 GM in DEXTROSE 5% MINI-B 100 ML IV SCH (05:48)
[2023-11-27] MEDS: PANTOprazole 40 MG TAB PO SCH (06:03)
[2023-11-27 08:07] LABS: Basophils # (auto) 0.05 K/uL (0.00-0.20); Basophils % (auto) 0.4 %; Eosinophils # (auto) 0.02 K/uL (0.00-0.50); Eosinophils % (auto) 0.2 %; Hematocrit (blood only) 30.9 % (37.0-47.0); Immature Granulocytes # (auto) 0.06 K/uL (0.01-0.20); Immature Granulocytes % (auto) 0.5 %; Lymphocytes % (auto) 9.8 %; Mean Corpuscular Hemoglobin 32.8 pg (25.0-34.0); Mean Corpuscular Hgb Conc 35.6 g/dL (32.0-36.0); Mean Corpuscular Volume 92.2 fL (80.0-100.0); Mean Platelet Volume 10.3 fL (9.4-12.4); Monocytes # (auto) 1.97 K/uL (0.11-0.59); Monocytes % (auto) 14.8 %; Neutrophils # (auto) 9.91 K/uL (1.40-6.50); Neutrophils % (auto) 74.3 %; Platelet Count 377 K/uL (130-400); RDW Coefficient of Variation 12.5 % (11.5-14.5); RDW Standard Deviation 41.8 fL (36.4-46.3); Red Blood Count 3.35 M/uL (4.20-5.40); White Blood Count 13.31 K/ul (4.8-10.8)
[2023-11-27 08:23] LABS: BUN Creatinine Ratio 17.2 (10-20); Calcium 8.4 mg/dl (8.6-10.3); Creatinine Clr Calc Pharmacy 61.9 ml/min; Est GFR (African American) 105.2 ml/min; Est GFR (Non-African American) 90.8 ml/min; Potassium 2.8 mmol/L (3.5-5.1)
[2023-11-27] MEDS: FAMOTIDINE 20MG IV PUSH 20 MG/5 ML SYR IV SCH (08:45)
[2023-11-27] MEDS: ATENOLOL 50 MG TABLET PO SCH (08:46)
[2023-11-27] MEDS: amLODIPine BESYLATE 5 MG TAB PO SCH (08:47)
[2023-11-27] MEDS: SUCRALFATE 1 GM/10 ML UDC PO SCH (08:48)
--- NOTE | 2023-11-27 08:51 | XRay Report ---
XR chest 1V portable CLINICAL HISTORY: Cough. COMPARISON STUDY: Chest radiograph December 18, [address] December 05, 2021. FINDINGS: Lung volumes are normal. Lungs are clear. There is no pneumothorax or pleural effusion. Car diac size is normal. Mediastinal contours are normal. There is no evidence for pulmonary edema. IMPRESSION: No acute cardiopulmonary findings. ACT 112: Negative or not required by law. Electronically signed by: Cole Pruitt M.D. 11/27/2023 8:50 AM
--- NOTE | 2023-11-27 09:07 | Electrocardiogram Report ---
Test Reason : Blood Pressure : */* mmHG Vent. Rate : 94 BPM Atrial Rate : 94 BPM P-R Int : 152 ms QRS Dur : 68 ms QT Int : 372 ms P-R-T Axes : 61 45 51 degrees QTcB Int : 465 ms Normal sinus rhythm Nonspecific ST and T wave abnormality Abnormal ECG When compared with ECG of 05-Dec-2021 04:37, Nonspecific T wave abnormality now evident in Anterior leads Confirmed by Chalo Feng ([id number]) on 11/27/2023 9:07:09 AM Referred By: Confirmed By: Chalo Feng
[2023-11-27] MEDS: POTASSIUM CHLORIDE CRTAB 20 MEQ TABCR PO SCH (15:01)
--- NOTE | 2023-11-27 15:07 | Hospitalist Progress Note ---
Date of Service November 27, 2023 Assessment & Plan (1) Illness: Plan: 73-year-old female with past medical history significant for hyperlipidemia, hypertension, history of polymyalgia rheumatica, osteoporosis, protein calorie malnutrition, diverticulosis of colon and diverticulitis, history of tobacco use disorder, depression with anxiety comes because of pain in the jaw and neck and face and thinks possible dental infection. Patient states she had a root canal in a one of the front teeth teeth in lower jaw few months back and at that time the tooth was cracked. There is a plan for dental implantation. About 3 weeks ago her dentist scrapped that teeth. For the last few days the dental pain has got worse and she cannot open mouth fully and also pain is radiating to the right side of the face and to the neck and not eating or drinking much because of this ongoing symptoms.Patient states she was talking with her dentist last couple of days and was advised to go to come to the hospital. Denies any fever. Has some headache. No dizziness. No blurred visions. No runny nose. Has occasional cough. No chest pain. No shortness of breath. No abdominal pain. Currently bowel movements are okay. Micturating okay. Last few days because of weakness she is requiring some assistance with ambulating. Illness Leukocytosis Has dental pain right lower jaw radiating to the face and neck Recent dental procedure CT scan soft tissue doesn't show any abscess or cellulitis Continue on empiric antibiotics for the time being. Follow up on blood culture appreciate oral surgery input Obtain carotid duplex as CT soft tissue neck is concerning of ICA stenosis Recent diarrhea Leukocytosis No recent use of antibiotics awaiting C.diff Dysphagia Possible GERD CT soft tissue neck - no acute findings continue on IV Pepcid Malnutrition Nutrition follow-up Hyperlipidemia On statin, continue Hypertension On amlodipine and atenolol, continue Depression with anxiety On Ativan as needed DVT prophylaxis SCDs for now Disposition Medical floor Full code. Please note the above document was generated using voice recognition software. It may contain grammatical, syntax or spelling errors. Any formal questions or concerns about the content, text or information contained within the body of this dictation should be directly addressed to the provider for clarification Admission and Anticipated Discharge Date Admission Date: November 26, 2023 Subjective Patient seen and examined at bedside. She continues to report pain while opening her mouth. Afebrile and saturating in RA. Review of Systems Review of Systems: All systems reviewed & are unremarkable except as noted in Subjective Physical Exam Physical Exam: General- Not in acute distress. Thin and frail Head- atraumatic Eyes- PERRL. ENT- oropharynx clear, Painful opening of mouth. No obvious signs of infection( swelling, redness) Neck- supple, no JVD. Lungs- clear to auscultation no wheezing or crackles Heart- regular rhythm; no murmur, no gallop Abdomen- normal bowel sounds, soft, nontender, no distension Extremities- no pretibial edema, no erythema seen. Neuro- alert, oriented PERRL, no facial palsy; no dysarthria; moves extremities Results & Data Results & Data Vital Signs (Past 12 Hours) Vital Signs Temp Pulse Pulse Resp BP Pulse Ox O2 Del Method 11/27/23 13:39 36.6 C 70 18 123/64 Room Air 11/27/23 08:58 36.8 C 70 16 140/75 94 Room Air 11/27/23 07:22 36.5 C 71 18 157/88 H 94 Room Air
--- NOTE | 2023-11-27 16:37 | Ultrasound Report ---
CAROTID ARTERY ULTRASOUND CLINICAL HISTORY: ICA stenosis COMPARISON STUDY: Neck CT November 26, 2023. TECHNIQUE: Real-time, grayscale, and color Doppler sonography of the carotid and vertebral arteries w as performed. Images were viewed in the transverse and longitudinal planes. FINDINGS: There is extensive atherosclerotic plaque present within the bilateral carotid bifurcations, greater on the right. Velocity measurements are listed below. COMMON CAROTID PEAK SYSTOLIC VELOCITY (CM/S): RIGHT 36 LEFT 82 ICA PEAK SYSTOLIC VELOCITY (CM/S): RIGHT 199 LEFT 97 Systolic ratio between the right internal to common carotid artery is significantly elevated at 5.5. Antegrade flow is seen in the vertebral arteries. The external carotid arteries are patent. IMPRESSION: 1. Findings consistent with severe stenosis of the proximal right internal carotid artery, better dep icted on CT of November 26, 2023. Approximate 90% stenosis of the proximal right internal carotid arter y on that exam. 2. Findings suggestive of less than 50% stenosis of the proximal left internal carotid artery. ACT 112: Negative or not required by law. Electronically signed by: Cole Pruitt M.D. 11/27/2023 4:36 PM
[2023-11-27 21:37] VITALS: O2SAT 95
--- NOTE | 2023-11-27 21:50 | Oral/Maxillofacial Consult ---
Date of Consultation November 27, 2023 Assessment & Plan (1) Trismus: (2) Pain due to dental caries: History of Present Illness Attending Physician: Patrice Dominguez MD History of Present Illness Oral Maxillofacial Surgery Exam Present Complaint: Ana Cristina gives a long history of pain on and off associated with lower right premolar. She was referred for root canal but tooth 28 fractured. Her dentist decided to just smooth the sharp surface smooth and follow up-a few days of the smoothing procedure she developed pain and muscle tightness to the point that she could not open her mouth. I did a bed side evaluation this afternoon and noted the # 28 tooth smoothed to the gum tissue. There is no swelling or evidence of infection or acute periodontal disease. Ana Cristina had pain referred to the right ear and jaw which is suggestive of dental pathology of the lower teeth. I reviewed the CT and did not see any infection or drainable pus. She is feeling better now that the IV antibiotics have had a chance to work for a few days. I feel the tooth will need to be extracted once she is able to open her mouth to a normal range of opening I can not explain the reason for the muscle trismus - as there is no evidence to support an infection. She is also concerned that she is not strong enough to undergo a general anesthesia at this time! It is my understanding that her dentist has made or will make arrangements to has her get the tooth removed by Oral surgeon Dr Quan Umana. From my point of view I see no acute reason for removal of the tooth. If she meets criteria for discharge she can be D/C on an oral antibiotic have her follow up with Dr Umana as an out patient. If however she needs to be followed in the hospital for a few more days and her muscle trismus improves I would consider if medically able and with her permission on removing the tooth in the OR early next week otherwise she can make her own arrangements with Dr Umana. Soft tissue: Due to limited opening difficult to exam The floor of the mouth, tongue, hard/soft palate, posterior pharyngeal area all with in normal limits, no pathology or abnormal findings noted. Noted large bilateral wilder (lower) Oral Care: Overall oral care is good Upper dentures Missing all posterior teeth only a few lower anterior teeth Occlusion: Class I TMJ exam: Current history of TMJ dysfunction, unknown etiology? Periodontal exam: Healthy gingival tissue without evidence of periodontal pathology. Treatment Plan: Follow up with Dr Umana as outpatient when the time is right Set up with general anesthesia in hospital if needed to stay for medical reasons I reviewed the treatment plan and consent with the patient Understanding was expressed. Time was given for questions regarding the surgery, risks and post op care. Discussed alternative to treatment--folow up with local OMS,Do not do surgery The following teeth are decayed and fractured and removal is indicated # 28 Risks discussed: Bleeding,Pain,swelling,infection, dry socket, delayed healing, nerve injury to face,lips,tongue,chin area which could be permanent (rare). TMJ, jaw stiffness, change in bite (rare), ear pain (referred). Sinus problems like fistula or infection. Need to leave a small root fragment in place to avoid injury to nerve or sinus. Relationship of wisdom teeth to nerve/sinus and risk of jaw fracture. Surgery to be set up once her muscle trismus improves Allergies Allergy/AdvReac Type Severity Reaction Status Date / Time cyclobenzaprine Allergy Unknown * Verified 11/26/23 20:13 hydrocodone Allergy Unknown * Verified 11/26/23 20:13 propoxyphene Allergy Unknown * Verified 11/26/23 20:13 Quinolones AdvReac Intermediate N/V Verified 11/26/23 20:13 Home Medications Medication Instructions Recorded Confirmed Type lorazepam 1 mg tablet 0.5 mg PO Q8 PRN Anxiety 02/11/21 11/26/23 History amlodipine 5 mg tablet 5 mg PO QAM 12/05/21 11/26/23 History amoxicillin 500 mg capsule 2,000 mg PO ONCE PRN before dental 11/26/23 11/26/23 History appointment atenolol 50 mg tablet 50 mg PO QAM 11/26/23 11/26/23 History omeprazole 20 mg capsule,delayed 20 mg PO DAILYBB 11/26/23 11/26/23 History release sucralfate 100 mg/mL oral 10 ml PO QID 11/26/23 11/26/23 History suspension Patient History Medical History Diverticulitis Hypertension Left arm numbness Left hip pain Pressure ulcer of left hip, stage 3 Surgical History History of dental surgery Family History Other Hypertension Social History Smoking Status: Never smoker Tobacco Type: Cigarettes Hx Alcohol Use: Yes Alcohol type: wine Alcohol Intake Frequency: Monthly or Less Hx Substance Use: Yes Last Used Substance: Unknown Last Used Substance Other:: uses medical marijuana "ocassionally", but not recently Preferred Language: Romanian Communication Ability: Effective Electro Mechanical Assembler Required: No Beliefs That Will Affect Care: None marital status: Single Current Living Situation: Significant Other Current Living Situation Comment: lives with sig. other in 2 story home, some reported difficulty with stairs current occupational status: retired Other Information That Helps Us Care for You: No Feels Safe at Home: Yes Safety Concerns: Feels Safe At This Time Assistive Devices: Denture - Upper Assistive Devices Comment: states that she is "getting a cane" due to recent weakness Results & Data Vital Signs (Past 12 Hours) Vital Signs Temp Pulse Pulse Resp BP Pulse Ox O2 Del Method 11/27/23 15:12 36.7 C 72 18 119/67 96 Room Air 11/27/23 13:39 36.6 C 70 18 123/64 Room Air PG Care Time/CCT Total # of Minutes Spent Total Time Spent with Patient: Total time spent is greater than 50% in coordination of care (as documented) at patient's floor/unit and/or counseling patient: Coding Level of Care Code 74650 INT INP/OBS CARE 1/40MIN Diagnoses Trismus R25.2 Pain due to dental caries K02.9
[2023-11-28] MEDS: PIPERACILLIN/TAZOBACTAM 4.5 GM/100 ML BAG IV SCH (06:02)
[2023-11-28 06:57] LABS: Basophils # (auto) 0.04 K/uL (0.00-0.20); Basophils % (auto) 0.4 %; Eosinophils # (auto) 0.04 K/uL (0.00-0.50); Eosinophils % (auto) 0.4 %; Hematocrit (blood only) 29.7 % (37.0-47.0); Hemoglobin 10.4 g/dl (12.0-16.0); Immature Granulocytes # (auto) 0.03 K/uL (0.01-0.20); Immature Granulocytes % (auto) 0.3 %; Lymphocytes # (auto) 1.51 K/uL (1.20-3.40); Lymphocytes % (auto) 15.7 %; Mean Corpuscular Hemoglobin 32.7 pg (25.0-34.0); Mean Corpuscular Volume 93.4 fL (80.0-100.0); Mean Platelet Volume 10.4 fL (9.4-12.4); Monocytes # (auto) 1.32 K/uL (0.11-0.59); Monocytes % (auto) 13.8 %; Neutrophils # (auto) 6.66 K/uL (1.40-6.50); Neutrophils % (auto) 69.4 %; Platelet Count 415 K/uL (130-400); RDW Coefficient of Variation 12.5 % (11.5-14.5); RDW Standard Deviation 43.4 fL (36.4-46.3); Red Blood Count 3.18 M/uL (4.20-5.40)
[2023-11-28 07:15] LABS: BUN Creatinine Ratio 11.6 (10-20); Calcium 8.7 mg/dl (8.6-10.3); Chol HDL Ratio 2.7 (0-5); Creatinine Clr Calc Pharmacy 49.1 ml/min; Est GFR (African American) 99.4 ml/min; Est GFR (Non-African American) 85.8 ml/min; Potassium 3.9 mmol/L (3.5-5.1)
[2023-11-28 07:33] VITALS: BP 137/64; RESP 18; TEMP 98.1
[2023-11-28] MEDS: ASPIRIN 81 MG ECTAB PO SCH (09:26)
[2023-11-28] MEDS: OPTIRAY 320 125ml IV ONE (10:20)
--- NOTE | 2023-11-28 11:35 | CT Scan Report ---
CT angio neck with con CLINICAL HISTORY: 73 years-old Female with Severe right ica stenosis. Atherosclerosis with carotid stenosis COMPARISON STUDY: CT soft tissue neck 11/26/2023 TECHNIQUE: Following the IV administration of 1 20 cc of Optiray, CT angiogram of the neck was perfor med from the aortic arch to the skull base. Images are reviewed in the axial, sagittal, and coronal p lanes. 3-D MIPS images are created and assessed. IV contrast was administered without complication. A ll measurements were calculated based on NASCET criteria. A dose lowering technique was utilized adh ering to the principles of ALARA. CT DOSE: 321.74 mGy.cm FINDINGS: Prominent atherosclerosis of the thoracic arch. There is patency of the innominate and imag es including arteries. The common carotid arteries are patent. There is severe atherosclerotic plaque of the bilateral carotid bulbs and proximal cervical segments of the internal carotid arteries. Ther e is approximately 50% stenosis on the left and 90% stenosis at the origin of the right ICA, image 19 1. There is additional stenosis involving the clinoid and supraclinoid segments of the internal carot id arteries, high-grade within the supraclinoid right ICA. High-grade stenosis at the origin of the right vertebral artery. The left vertebral artery is patent and dominant. Patent basilar artery. Pulmonary emphysema. Lung apices are clear. Unremarkable thyroid and soft tissues. Multilevel degener ative changes of the cervical spine. IMPRESSION: 1. Atherosclerosis with high grade stenosis at the origin of the right ICA. 2. High-grade stenosis at the origin of the right vertebral artery. 3. Pulmonary emphysema. ACT 112: Negative or not required by law. The above report was generated using voice recognition software. It may contain grammatical, syntax o r spelling errors. Electronically signed by: Jordy Samuels M.D. 11/28/2023 11:34 AM
--- NOTE | 2023-11-28 12:01 | Hospitalist Progress Note ---
Date of Service November 28, 2023 Assessment & Plan (1) Illness: Plan: 73-year-old female with past medical history significant for hyperlipidemia, hypertension, history of polymyalgia rheumatica, osteoporosis, protein calorie malnutrition, diverticulosis of colon and diverticulitis, history of tobacco use disorder, depression with anxiety comes because of pain in the jaw and neck and face and thinks possible dental infection. Patient states she had a root canal in a one of the front teeth teeth in lower jaw few months back and at that time the tooth was cracked. There is a plan for dental implantation. About 3 weeks ago her dentist scrapped that teeth. For the last few days the dental pain has got worse and she cannot open mouth fully and also pain is radiating to the right side of the face and to the neck and not eating or drinking much because of this ongoing symptoms.Patient states she was talking with her dentist last couple of days and was advised to go to come to the hospital. Illness Leukocytosis Odontogenic infection Has dental pain right lower jaw radiating to the face and neck Recent dental procedure CT scan soft tissue doesn't show any abscess or cellulitis continue IV Zosyn, wbc significantly improving Blood culture NGTD appreciate oral surgery input D/C on oral antibiotic likely in next 1-2 days with close OP f/u with oral surgeon Dr. Umana High grade R ICA Stenosis confirmed on CTA consult Dr. Atkins for evaluation Lipid panel reviewed start ASA 81mg daily and statin Recent diarrhea Leukocytosis No recent use of antibiotics sounds viral, this has resolved Dysphagia Possible GERD CT soft tissue neck - no acute findings continue on IV Pepcid Malnutrition Nutrition follow-up, note reviewed, yogurt added, pt declines shakes Hypertension stable, continue atenolol previously also on amlodipine, this recently d/c due to low blood pressure Depression with anxiety On Ativan as needed DVT prophylaxis SCDs for now Disposition Medical floor, likely able to discharge in next 1-2 days Full code. PCP: Dr. Alonzo A total of 50 minutes was spent coordinating, documenting, and providing care for this patient excluding time spent in the performance of separately billed services. This included personally viewing all current laboratories and imaging studies, medication reconciliation, outpatient chart review, and discussion with specialists. Admission and Anticipated Discharge Date Admission Date: November 26, 2023 Subjective Pt was seen and examined in room 353-1. F/U Dental infection. She continues to have right sided jaw/neck pain and trismus. She feels pain has improved since starting antibiotics. She is very frustrated this morning due to lack of communication and frustrated she doesn't know what is going on. She denies f/c/s, chest pain, sob, n/v/d. She is not happy with her liquid diet. Nurse Jair is at bedside and offers no concerns. She feels very weak. Review of Systems Review of Systems: All systems reviewed & are unremarkable except as noted in HPI & below Physical Exam Physical Exam: Gen: Thin, F, appears stated age, appears frustrated, NAD, A&O x3 HEENT: Normocephalic, atraumatic, conjunctivae moist, sclerae anicteric, mucous membranes moist. +trismus Lung: Clear to Auscultation bilaterally, no wheezes/rales/rhonchi Heart: Regular rate, regular rhythm, no murmurs, rubs, or gallops Abdomen: Soft, NT, ND +BS x 4 Extremities: No edema Skin: Warm, no rash, negative turgor. Results & Data Results & Data Vital Signs (Past 12 Hours) Vital Signs Temp Pulse Resp BP Pulse Ox O2 Del Method 11/28/23 07:32 36.7 C 75 18 137/64 95 Room Air Laboratory Results Short CBC 11/28/23 Range/Units 06:03 WBC 9.60 (4.8-10.8) K/ul Hgb 10.4 L (12.0-16.0) g/dl Hct 29.7 L (37.0-47.0) % Plt Count 415 H (130-400) K/uL BMP 11/28/23 06:03 Sodium 136 Potassium 3.9 D Chloride 102 Carbon Dioxide 27 BUN 8 Creatinine 0.69 Glucose 90 Calcium 8.7 I have independently reviewed and interpreted patient's labs including cbc, bmp, lipid panel Diagnostic Findings Neck CTA 11/28/23 07:59 CT angio neck with con CLINICAL HISTORY: 73 years-old Female with Severe right ica stenosis. Athero sclerosis with carotid stenosis COMPARISON STUDY: CT soft tissue neck 11/26/2023 TECHNIQUE: Following the IV administration of 1 20 cc of Optiray, CT angiogram of the neck was performed from the aortic arch to the skull base. Images are reviewed in the axial, sagittal, and coronal planes. 3-D MIPS images are created and assessed. IV contrast was administered without complication. All measureme nts were calculated based on NASCET criteria. A dose lowering technique was utilized adhering to the principles of ALARA. CT DOSE: 321.74 mGy.cm FINDINGS: Prominent atherosclerosis of the thoracic arch. There is patency of the innominate and images including arteries. The common carotid arteries are patent. There is severe atherosclerotic plaque of the bilateral carotid bulbs and proximal cervical segments of the internal carotid arteries. There is approximately 50% stenosis on the left and 90% stenosis at the origin of the right ICA, image 191. There is additional stenosis involving the clinoid and supraclinoid segments of the internal carotid arteries, high-grade within the supraclinoid right ICA. High-grade stenosis at the origin of the right vertebral artery. The left vertebral artery is patent and dominant. Patent basilar artery. Pulmonary emphysema. Lung apices are clear. Unremarkable thyroid and soft tissues. Multilevel degenerative changes of the cervical spine. IMPRESSION: 1. Atherosclerosis with high grade stenosis at the origin of the right ICA. 2. High-grade stenosis at the origin of the right vertebral artery. 3. Pulmonary emphysema. ACT 112: Negative or not required by law. The above report was generated using voice recognition software. It may contain grammatical, syntax or spelling errors. Electronically signed by: Jordy Samuels M.D. 11/28/2023 11:34 AM Medications Administered Current Inpatient Medications Acetaminophen (Acetaminophen 325 Mg Tab) 650 mg PO Q4H PRN PRN Reason: pain/fever Stop: 12/26/23 23:53 Aspirin (Aspirin 81 Mg Ectab) 81 mg PO QAM [facility] Stop: 12/28/23 08:59 Last Admin: 11/28/23 09:26 Dose: 81 mg Atenolol (Atenolol 50 Mg Tablet) 50 mg PO QAM [facility] Stop: 12/27/23 08:59 Last Admin: 11/28/23 09:26 Dose: 50 mg Atorvastatin Calcium (Atorvastatin 10 Mg Tab) 10 mg PO HS [facility] Stop: 12/28/23 20:59 Famotidine (Famotidine 20 Mg Tab) 20 mg PO Q12 [facility] Stop: 12/28/23 20:59 Piperacillin Sod/Tazobactam Sod (Zosyn) 4.5 gm in 100 mls @ 25 mls/hr IV Q8H [facility]; Protocol Stop: 12/04/23 05:59 Last Infusion: 11/28/23 10:15 Dose: Infused Lorazepam (Lorazepam 0.5 Mg Tab) 0.5 mg PO Q8H PRN PRN Reason: Anxiety Stop: 12/26/23 23:53 Morphine Sulfate (Morphine Sulfate 2 Mg/Ml Carp) 2 mg IV Q4H PRN PRN Reason: Mod-Sev Pain (Scale 4-10) Stop: 12/10/23 23:53 Pantoprazole Sodium (Pantoprazole 40 Mg Tab) 40 mg PO DAILYBB [facility] Stop: 12/27/23 06:29 Last Admin: 11/28/23 06:01 Dose: 40 mg Polyethylene Glycol (Polyethylene (Miralax) 17 Gm Pack) 17 gm PO DAILY PRN PRN Reason: Constipation Stop: 12/26/23 23:53 Potassium Chloride (Potassium Chloride Crtab 20 Meq Tabcr) 40 meq PO TID [facility] Stop: 12/27/23 13:59 Last Admin: 11/28/23 09:25 Dose: 40 meq Sucralfate (Sucralfate 1 Gm/10 Ml Udc) 1 gm PO QID [facility] Stop: 12/27/23 08:59 Last Admin: 11/28/23 09:32 Dose: Not Given
--- NOTE | 2023-11-28 14:48 | Discharge Summary ---
Discharge Summary Date of Service November 28, 2023 Principal Dx & Hospital Course #1 = Principal Diagnosis (1) Illness: 73-year-old female with past medical history significant for hyperlipidemia, hypertension, history of polymyalgia rheumatica, osteoporosis, protein calorie malnutrition, diverticulosis of colon and diverticulitis, history of tobacco use disorder, depression with anxiety comes because of pain in the jaw and neck and face and thinks possible dental infection. Patient states she had a root canal in a one of the front teeth teeth in lower jaw few months back and at that time the tooth was cracked. There is a plan for dental implantation. About 3 weeks ago her dentist scrapped that teeth. For the last few days the dental pain has got worse and she cannot open mouth fully and also pain is radiating to the right side of the face and to the neck and not eating or drinking much because of this ongoing symptoms.Patient states she was talking with her dentist last couple of days and was advised to go to come to the hospital. Illness Leukocytosis Odontogenic infection Has dental pain right lower jaw radiating to the face and neck Recent dental procedure CT scan soft tissue doesn't show any abscess or cellulitis on IV zosyn, leukocytosis resolved will discharge on oral keflex and flagyl for additional 4 days Blood culture NGTD appreciate oral surgery input close OP f/u with oral surgeon Dr. Umana High grade R ICA Stenosis R vertebral Artery stenosis confirmed on CTA consult Dr. Atkins for evaluation; however pt refused continued hospitalization and wished to be discharged prior to being seen by Dr. Atkins I did speak with Vascular [facility]ERO who was going to obtain an outpatient appointment for the patient Pt was educated regarding risk and concerns regarding her high grade stenosis but is opting for outpt eval Lipid panel reviewed start ASA 81mg daily and statin - pt educated regarding benefit of this Recent diarrhea Leukocytosis No recent use of antibiotics sounds viral, this has resolved Dysphagia Possible GERD CT soft tissue neck - no acute findings continue PPI Malnutrition encouraged protein shakes, high protein foods Hypertension stable, continue atenolol previously also on amlodipine, this recently d/c due to low blood pressure Depression with anxiety On Ativan as needed Disposition Discharge to home with close outpatient follow up Full code. PCP: Dr. Alonzo A total of 50 minutes was spent coordinating, documenting, and providing care for this patient excluding time spent in the performance of separately billed services. This included personally viewing all current laboratories and imaging studies, medication reconciliation, outpatient chart review, and discussion with specialists. Notes For Next Care Provider Please ensure pt has follow up with vascular due to high grade internal carotid artery stenosis and vertebral artery stenosis Medication Changes From Visit 1. Cephalexin 500 mg every 6 hours for additional 4 days. Next dose evening on 11/28/2023 2. Metronidazole 500mg every 8 hours for additional 4 days. Next dose evening on 11/28/23. Please do not consume any alcohol while on this medication. 3. Florastor 250mg once daily for 4 days, this is a probiotic. 4. Aspirin 81mg once daily in the morning. 5. Atorvastatin 10mg once daily at bedtime. Admission HPI Per Admitting Provider 73-year-old female with past medical history significant for hyperlipidemia, hypertension, history of polymyalgia rheumatica, osteoporosis, protein calorie malnutrition, diverticulosis of colon and diverticulitis, history of tobacco use disorder, depression with anxiety comes because of pain in the jaw and neck and face and thinks possible dental infection. Patient states she had a root canal in a one of the front teeth teeth in lower jaw few months back and at that time the tooth was cracked. There is a plan for dental implantation. About 3 weeks ago her dentist scrapped that teeth. For 1 week she was okay but after 1 week she developed some pain in the jaw and she thinks she has some infection going on there. As per she also gets these bouts of nausea/ vomiting and diarrhea every few months since she has bowel surgery for diverticulitis. 2 weeks ago she developed nausea vomiting and diarrhea saw PCP thought to be gastroenteritis and also had some dysphagia thought to be from GERD and prescribed omeprazole. Currently nausea /vomiting and diarrhea resolved and dysphagia seems to be getting better. Then the last few days the dental pain has got worse and she cannot open mouth fully and also pain is radiating to the right side of the face and to the neck and not eating or drinking much because of this ongoing symptoms.Patient states she was talking with her dentist last couple of days and was advised to go to come to the hospital. Denies any fever. Has some headache. No dizziness. No blurred visions. No runny nose. Has occasional cough. No chest pain. No shortness of breath. No abdominal pain. Currently bowel movements are okay. Micturating okay. Last few days because of weakness she is requiring some assistance with ambulating. Lost about 10 pounds in last 3 weeks. Currently resting comfortably and hemodynamic stable. Past medical history. As mentioned above Past surgical history. Colonoscopy with biopsy. Dilatation curettage. Lumbar hemilaminectomy. Partial removal of colon for recurrent diverticulitis. Cataracts. Social history. Quit smoking 2018. Smoked 0.1 pack a day for 30 years. Alcohol occasional. No drug use. Family history significant for mother had allergies. Paternal aunt had breast cancer. Paternal grandmother had diabetes. Admission Exam Per Admitting Provider General- Not in acute distress. Thin and frail Head- atraumatic Eyes- PERRL. ENT- oropharynx clear, Painful opening of mouth Neck- supple, no JVD. Lungs- clear to auscultation no wheezing or crackles Heart- regular rhythm; no murmur, no gallop Abdomen- normal bowel sounds, soft, nontender, no distension Extremities- no pretibial edema, no erythema seen. Neuro- alert, oriented PERRL, no facial palsy; no dysarthria; moves extremities Discharge Exam Gen: Thin, F, appears stated age, appears frustrated, NAD, A&O x3 HEENT: Normocephalic, atraumatic, conjunctivae moist, sclerae anicteric, mucous membranes moist. +trismus Lung: Clear to Auscultation bilaterally, no wheezes/rales/rhonchi Heart: Regular rate, regular rhythm, no murmurs, rubs, or gallops Abdomen: Soft, NT, ND +BS x 4 Extremities: No edema Skin: Warm, no rash, negative turgor. Updated Medication List Medication Instructions Recorded Confirmed Type lorazepam 1 mg tablet 0.5 mg PO Q8 PRN Anxiety 02/11/21 11/26/23 History amoxicillin 500 mg capsule 2,000 mg PO ONCE PRN before dental 11/26/23 11/26/23 History appointment atenolol 50 mg tablet 50 mg PO QAM 11/26/23 11/26/23 History omeprazole 20 mg capsule,delayed 20 mg PO DAILYBB 11/26/23 11/26/23 History release sucralfate 100 mg/mL oral 10 ml PO QID 11/26/23 11/26/23 History suspension Saccharomyces boulardii 250 mg 250 mg PO DAILY #4 caps 11/28/23 Rx capsule (Florastor) aspirin 81 mg tablet,delayed 81 mg PO QAM #30 tabs 11/28/23 Rx release atorvastatin 10 mg tablet 10 mg PO HS #30 tabs 11/28/23 Rx cephalexin 500 mg capsule 500 mg PO Q6H 4 days #16 caps 11/28/23 Rx clopidogrel 75 mg tablet (Plavix) 75 mg PO DAILY #30 tabs 11/28/23 Rx metronidazole 500 mg tablet 500 mg PO Q8H 4 days #12 tabs 11/28/23 Rx Hospital Stay Data Consultations 11/26/23 21:05 ED Decision to Admit Stat 11/27/23 08:00 Consult Oromaxillofacial Surgery Routine 11/28/23 07:48 Consult Vascular Surgery Routine Diagnostic Imagining Performed Soft Tissue Neck CT 11/26/23 17:49 Exam(s): CT NECK With Contrast IV Amt: 94 cc opti 320 EXAM: CT Neck With Intravenous Contrast CLINICAL HISTORY: Reason for exam: R dental infection; neck pain. TECHNIQUE: Axial computed tomography images of the neck with intravenous contrast. CTDI is 8.2 mGy and DLP is 222.71 mGy-cm. Automated exposure control was utilized for the study. A dose lowering technique was utilized adhering to the principles of ALARA. Mild to moderate motion artifact and dental metal artifact. CONTRAST: Patient received 94 cc opti 320 of IV contrast COMPARISON: CT cervical spine 12/05/21. FINDINGS: Oropharynx: Unremarkable. No significant tonsillar enlargement. No peritonsillar abscess. Hypopharynx: Unremarkable. Larynx: Unremarkable. Normal epiglottis. Trachea: Unremarkable. Retropharyngeal space: Unremarkable. Submandibular/parotid glands: Unremarkable. Thyroid: Unremarkable. Bones/joints: No acute fracture. Soft tissues: Unremarkable. No mass, cellulitis or abscess, with attention to the soft tissues near the maxilla and mandible. Vasculature: Severe bilateral carotid atherosclerosis with severe right and at least moderate left ICA stenosis. Lymph nodes: Unremarkable. No lymphadenopathy. Lung apices: Unremarkable as visualized. IMPRESSION: 1. No abscess or cellulitis attention to the dentition. Limited evaluation due to dental metal artifact and patient motion. 2. Severe right and moderate left carotid stenosis suspected. Electronically signed by: Lillie Gary M.D. 11/26/23 19:53 PM Chest X-Ray 11/27/23 06:48 XR chest 1V portable CLINICAL HISTORY: Cough. COMPARISON STUDY: Chest radiograph December 18, [address] December 05, 2021. FINDINGS: Lung volumes are normal. Lungs are clear. There is no pneumothorax or pleural effusion. Cardiac size is normal. Mediastinal contours are normal. There is no evidence for pulmonary edema. IMPRESSION: No acute cardiopulmonary findings. ACT 112: Negative or not required by law. Electronically signed by: Cole Pruitt M.D. 11/27/2023 8:50 AM Carotid Doppler Study 11/27/23 10:33 CAROTID ARTERY ULTRASOUND CLINICAL HISTORY: ICA stenosis COMPARISON STUDY: Neck CT November 26, 2023. TECHNIQUE: Real-time, grayscale, and color Doppler sonography of the carotid and vertebral arteries was performed. Images were viewed in the transverse and longitudinal planes. FINDINGS: There is extensive atherosclerotic plaque present within the bilateral carotid bifurcations, greater on the right. Velocity measurements are listed below. COMMON CAROTID PEAK SYSTOLIC VELOCITY (CM/S): RIGHT 36 LEFT 82 ICA PEAK SYSTOLIC VELOCITY (CM/S): RIGHT 199 LEFT 97 Systolic ratio between the right internal to common carotid artery is signific antly elevated at 5.5. Antegrade flow is seen in the vertebral arteries. The external carotid arteries are patent. IMPRESSION: 1. Findings consistent with severe stenosis of the proximal right internal carotid artery, better depicted on CT of November 26, 2023. Approximate 90% stenosis of the proximal right internal carotid artery on that exam. 2. Findings suggestive of less than 50% stenosis of the proximal left internal carotid artery. ACT 112: Negative or not required by law. Electronically signed by: Cole Pruitt M.D. 11/27/2023 4:36 PM Neck CTA 11/28/23 07:59 CT angio neck with con CLINICAL HISTORY: 73 years-old Female with Severe right ica stenosis. Atherosclerosis with carotid stenosis COMPARISON STUDY: CT soft tissue neck 11/26/2023 TECHNIQUE: Following the IV administration of 1 20 cc of Optiray, CT angiogram of the neck was performed from the aortic arch to the skull base. Images are reviewed in the axial, sagittal, and coronal planes. 3-D MIPS images are created and assessed. IV contrast was administered without complication. All measurements were calculated based on NASCET criteria. A dose lowering maria luisa hnique was utilized adhering to the principles of ALARA. CT DOSE: 321.74 mGy.cm FINDINGS: Prominent atherosclerosis of the thoracic arch. There is patency of the innominate and images including arteries. The common carotid arteries are patent. There is severe atherosclerotic plaque of the bilateral carotid bulbs and proximal cervical segments of the internal carotid arteries. There is approximately 50% stenosis on the left and 90% stenosis at the origin of the right ICA, image 191. There is additional stenosis involving the clinoid and supraclinoid segments of the internal carotid arteries, high-grade within the supraclinoid right ICA. High-grade stenosis at the origin of the right vertebral artery. The left vertebral artery is patent and dominant. Patent basilar artery. Pulmonary emphysema. Lung apices are clear. Unremarkable thyroid and soft tissues. Multilevel degenerative changes of the cervical spine. IMPRESSION: 1. Atherosclerosis with high grade stenosis at the origin of the right ICA. 2. High-grade stenosis at the origin of the right vertebral artery. 3. Pulmonary emphysema. ACT 112: Negative or not required by law. The above report was generated using voice recognition software. It may contain grammatical, syntax or spelling errors. Electronically signed by: Jordy Samuels M.D. 11/28/2023 11:34 AM Pending Results Patient Have Any Pending Studies at Discharge: No Discharge Instructions Given to Patient (Per Discharging Provider) MEDICATION CHANGES: 1. Cephalexin 500 mg every 6 hours for additional 4 days. Next dose evening on 11/28/2023 2. Metronidazole 500mg every 8 hours for additional 4 days. Next dose evening on 11/28/23. Please do not consume any alcohol while on this medication. 3. Florastor 250mg once daily for 4 days, this is a probiotic. 4. Aspirin 81mg once daily in the morning. 5. Atorvastatin 10mg once daily at bedtime. Please continue all other medications. SUMMARY OF TEST RESULTS: You were admitted to hospital due to concern for a possible dental infection. You had a CT scan done that did not show any abscess, but did incidentally find that your Right internal carotid artery is severely narrowed. You were treated with IV antibiotics and seen by an oral surgeon who did not feel emergent surgery was necessary. You are being discharged on additional 4 days of oral antibiotics. It was recommended that you be seen by a vascular surgeon due to the abnormal findings on the CT scan on your neck in regards to your severe stenosis of your carotid artery. You wished to be discharged before being seen and therefore you will need to be sure you establish with a vascular surgeon at discharge. PENDING TEST RESULTS: None RECOMMENDATIONS FOR FOLLOW-UP: Please follow up with Primary Care Provider as scheduled. Please ensure that you have a referral placed for a vascular surgeon. On your discharge paperwork there will be a number for Dr. Atkins's office. If you do not hear from them in a week please give them a call for a new patient appointment to address your carotid artery. Please complete antibiotics in their entirety. Please follow up with your oral surgeon upon discharge from hospital to further address your dental concerns. OTHER INSTRUCTIONS: Seek medical attention if you have: * temperature above 101 * chest pain or trouble breathing * abdominal pain, nausea, vomiting * diarrhea, dark stools or bloody stools * any unanswered questions or concerns Call 911 if symptoms are severe. Please take good care of yourself. It has been a pleasure taking care of you. Please take care of yourself. If you have any questions regarding your recent hospitalization please contact [facility] and [facility] [phone]. Jessi Reynoso PA-C Total Time Total Time Spent Total Time Spent (In Minutes): 50 minutes Supervising Physician Co-Signing Physician Notes Patient seen and examined independently. Leukocytosis resolved with IV antibiotics. Blood culture are negative till date. CTA neck shows atherosclerosis with high-grade stenosis at the origin of right ICA. Evaluated by vascular surgery; started on aspirin, Plavix and Lipitor. Recommend outpatient referral to pulmonology for pulmonary emphysema. Recommend follow-up with her dentist for her dental pain. I have reviewed the advanced practitioner's documentation, and I agree with, and take responsibility for the plan of care I spent a total of 30 minutes coordinating, documenting, and providing care for this patient excluding time spent in the performance of separately billed services. All of the aforementioned completed while collaborating with the assigned advanced practitioner for a full treatment plan
[2023-11-28 15:21] VITALS: PULSE 70
--- NOTE | 2023-11-28 15:35 | Consultation ---
Date of Consultation November 28, 2023 Assessment & Plan (1) Stenosis of right carotid artery: Even though she is asymptomatic due to the severe stenosis of the carotid we recommended intervention. We went over the risks options and benefits of TCAR versus endarterectomy. She is elected to go ahead with a TCAR. According to her x-rays she is a TCAR candidate. I have discussed the risks options and benefits of the procedure with the patient. The patient understands the risks options and benefits and agrees to the procedure. This will be scheduled to be done in a couple weeks. I did start her on Plavix and she is already on a statin and baby aspirin. Thank you very much for letting us participate in the care of this patient. History of Present Illness Reason for Consultation: Severe right internal carotid artery stenosis Attending Physician: Patrice Dominguez MD History of Present Illness This 73-year-old female with past medical history significant for hyperlipidemia, hypertension, history of polymyalgia rheumatica, osteoporosis, protein calorie malnutrition, diverticulosis of colon and diverticulitis, history of tobacco use disorder, depression. She was admitted for jaw pain and difficulty opening her mouth. During her workup she was found to have a severe stenosis of her right internal carotid artery. She denies any episodes of amaurosis fugax, TIA, or strokes. Allergies Allergy/AdvReac Type Severity Reaction Status Date / Time cyclobenzaprine Allergy Unknown * Verified 11/26/23 20:13 hydrocodone Allergy Unknown * Verified 11/26/23 20:13 propoxyphene Allergy Unknown * Verified 11/26/23 20:13 Quinolones AdvReac Intermediate N/V Verified 11/26/23 20:13 Home Medications Medication Instructions Recorded Confirmed Type lorazepam 1 mg tablet 0.5 mg PO Q8 PRN Anxiety 02/11/21 11/26/23 History amoxicillin 500 mg capsule 2,000 mg PO ONCE PRN before dental 11/26/23 11/26/23 History appointment atenolol 50 mg tablet 50 mg PO QAM 11/26/23 11/26/23 History omeprazole 20 mg capsule,delayed 20 mg PO DAILYBB 11/26/23 11/26/23 History release sucralfate 100 mg/mL oral 10 ml PO QID 11/26/23 11/26/23 History suspension Saccharomyces boulardii 250 mg 250 mg PO DAILY #4 caps 11/28/23 Rx capsule (Florastor) aspirin 81 mg tablet,delayed 81 mg PO QAM #30 tabs 11/28/23 Rx release atorvastatin 10 mg tablet 10 mg PO HS #30 tabs 11/28/23 Rx cephalexin 500 mg capsule 500 mg PO Q6H 4 days #16 caps 11/28/23 Rx clopidogrel 75 mg tablet (Plavix) 75 mg PO DAILY #30 tabs 11/28/23 Rx metronidazole 500 mg tablet 500 mg PO Q8H 4 days #12 tabs 11/28/23 Rx Patient History Surgical History History of dental surgery Family History Other Hypertension Social History Smoking Status: Never smoker Tobacco Type: Cigarettes Hx Alcohol Use: Yes Alcohol type: wine Alcohol Intake Frequency: Monthly or Less Hx Substance Use: Yes Last Used Substance: Unknown Last Used Substance Other:: uses medical marijuana "ocassionally", but not recently Preferred Language: Polish Communication Ability: Effective Mandrel Press Hand Required: No Beliefs That Will Affect Care: None marital status: Single Current Living Situation: Significant Other Current Living Situation Comment: lives with sig. other in 2 story home, some reported difficulty with stairs current occupational status: retired Other Information That Helps Us Care for You: No Feels Safe at Home: Yes Safety Concerns: Feels Safe At This Time Assistive Devices: Denture - Upper Assistive Devices Comment: states that she is "getting a cane" due to recent weakness Review of Systems Review of Systems: All systems reviewed & are unremarkable except as noted in HPI & below Physical Exam Constitutional: WD/WN, vitals as above Respiratory: normal respiratory effort; no respiratory distress Auscultation: lungs clear to auscultation bilaterally Cardiovascular: RRR, no murmur, no edema Vessels: + carotid bruit (on right) Extremities: normal capillary refill Gastrointestinal (Abdomen): normal bowel sounds, soft, nontender, no hepatosplenomegaly Neurologic: CN's II-XI intact bilaterally and moves all extremities Psychiatric: Orientation: alert and oriented x 3 Results & Data Vital Signs (Past 12 Hours) Vital Signs Temp Pulse Pulse Resp BP Pulse Ox O2 Del Method 11/28/23 15:14 36.7 C 70 75 18 137/64 95 11/28/23 07:32 36.7 C 75 18 137/64 95 Room Air
[2023-11-28] MEDS ORDERED: FAMOTIDINE 20 MG TAB PO SCH (21:00)
[2023-11-28] MEDS ORDERED: ATORVASTATIN 10 MG TAB PO SCH (21:00)
[2023-11-28] MEDS ORDERED: POTASSIUM CHLORIDE CRTAB 20 MEQ TABCR PO SCH (21:00)
== END 2023-11-28 17:40 | disposition home or self-care (01) | DRG 158 ==
LOC: ED 16:09 → 3W 22:28 → SUATTDRO 22:28 → 3W 23:22
DX: F32.A Depression, unspecified; E78.5 Hyperlipidemia, unspecified; I65.21 Occlusion and stenosis of right carotid artery; Z88.1 Allergy status to other antibiotic agents; M35.3 Polymyalgia rheumatica; I10 Essential (primary) hypertension; Z88.5 Allergy status to narcotic agent; K21.9 Gastro-esophageal reflux disease without esophagitis; Z88.8 Allergy status to other drugs, medicaments and biological substances; Z79.899 Other long term (current) drug therapy; Z68.1 Body mass index [BMI] 19.9 or less, adult; Z11.52 Encounter for screening for COVID-19; F41.9 Anxiety disorder, unspecified; E46 Unspecified protein-calorie malnutrition; R13.10 Dysphagia, unspecified; M81.0 Age-related osteoporosis without current pathological fracture; F17.210 Nicotine dependence, cigarettes, uncomplicated; K04.7 Periapical abscess without sinus

== ENCOUNTER 2023-12-24 06:40 | Inpatient (IN) ==
--- NOTE | 2023-12-17 13:39 | Anesthesiology Consultation ---
Date of Service December 17, 2023 Assessment & Plan (1) Encounter for pre-operative examination: - Infectious disease screening: Per assessment on 12/17/23: No known recent infectious disease contacts or current infectious disease symptoms. - Vascular surgeon inpatient consult (11/28/23): Patient had [facility] evaluation 11/2023 for complaints of jaw/neck/face pain. Recent dental procedure. No abscess or cellulitis on imaging. Rx'd abx and advised to f/u as outpatient by oral/maxillofacial surgery. Incidental high grade DAYANARA stenosis found and patient evaluated by vascular. "Even though she is asymptomatic due to the severe stenosis of the carotid we recommended intervention. We went over the risks options and benefits of TCAR versus endarterectomy. She is elected to go ahead with a TCAR. According to her x-rays she is a TCAR candidate. I have discussed the risks options and benefits of the procedure with the patient. The patient understands the risks options and benefits and agrees to the procedure. This will be scheduled to be done in a couple weeks. I did start her on Plavix and she is already on a statin and baby aspirin." Chart Review Chart Review: Acceptable Risk for Surgery and Patient NOT seen in Pre Admission Testing History Surgery Operation Date: 12/24/23 08:00 Proposed Procedures p Right Transcarotid Artery Revascularization - Addison Atkins MD Height/Weight Height: 5 ft 2.5 in Weight: 40.37 kg Allergies Allergy/AdvReac Type Severity Reaction Status Date / Time cyclobenzaprine Allergy Severe Anaphylaxis Verified 12/17/23 09:05 nickel Allergy Mild Rash Verified 12/17/23 09:06 amoxicillin [From Augmentin] AdvReac Intermediate nausea, Verified 12/17/23 09:05 vomiting, diarrhea clavulanic acid AdvReac Intermediate nausea, Verified 12/17/23 09:05 [From Augmentin] vomiting, diarrhea hydrocodone AdvReac Mild nausea/vomi Verified 12/17/23 09:05 ting propoxyphene AdvReac Mild nausea/vomi Verified 12/17/23 09:05 ting Medications Home Medications Medication Instructions Recorded Confirmed Last Taken lorazepam 1 mg tablet 0.5 mg PO Q8 PRN Anxiety 02/11/21 12/17/23 12/04/21 amoxicillin 500 mg capsule 2,000 mg PO ONCE PRN before dental 11/26/23 12/17/23 Unknown appointment atenolol 50 mg tablet 50 mg PO QAM 11/26/23 12/17/23 Unknown aspirin 81 mg tablet,delayed 81 mg PO QAM #30 tabs 11/28/23 12/17/23 Unknown release atorvastatin 10 mg tablet 10 mg PO HS #30 tabs 11/28/23 12/17/23 Unknown clopidogrel 75 mg tablet (Plavix) 75 mg PO QAM 12/17/23 12/17/23 Unknown Past Medical History Medical History Anxiety Carotid stenosis, right Generalized weakness Heart murmur Reported "years ago" per patient "No murmur" per 11/28/23 [facility] discharge summary or available recent [facility] records History of diverticulitis Polymyalgia rheumatica Trismus Noted per [place] Oral/maxillofacial surgery Past Family History Family History Other Hypertension No family history of adverse response to anesthesia Past Surgical History Surgical History History of bilateral cataract extraction History of colon resection R/t diverticulitis History of colonoscopy History of dilatation and curettage History of lumbar discectomy History of tooth extraction Social History Smoking Status: Former smoker Do You Dip or Chew Tobacco: No Smoking End Date: quit a couple months ago (was smoking 2 a day prior) Hx Alcohol Use: Yes Alcohol type: wine alcohol intake frequency: a few times a month Hx Substance Use: No substance use type: does not use Lab Results Anesthesia Preop Results Results Anesthesia Widget: WBC 9.60 K/ul (4.8-10.8) 11/28/23 Hgb 10.4 g/dl (12.0-16.0) L 11/28/23 Hct 29.7 % (37.0-47.0) L 11/28/23 Plt 415 K/uL (130-400) H 11/28/23 Na 136 mmol/L (136-145) 11/28/23 K 3.9 mmol/L (3.5-5.1) 11/28/23 Cl 102 mmol/L (98-107) 11/28/23 CO2 27 mmol/L (21-32) 11/28/23 BUN 8 mg/dl (6-23) 11/28/23 Creat 0.69 mg/dl (0.6-1.2) 11/28/23 Glucose Level 90 mg/dl (70-99(Fasting)) 11/28/23 PT 11.9 Seconds (9.0-12.0) 11/26/23 PTT 30 Seconds (21-31) 11/26/23 INR 1.1 (0.9-1.1) 11/26/23 Urine Color Dark Yellow 11/26/23 Urine Appearance Cloudy (Clear) A 11/26/23 Urine pH 5.5 (4.5-7.5) 11/26/23 Urine Specific [place] 1.023 (1.000-1.030) 11/26/23 Urine Protein 1+ (Negative) H 11/26/23 Urine Glucose (UA) Negative (Negative) 11/26/23 Urine Ketones 1+ (Negative) H 11/26/23 Urine Blood Negative (Negative) 11/26/23 Urine Nitrite Negative (Negative) 11/26/23 Urine Bilirubin 2+ (Negative) H 11/26/23 Urine Urobilinogen Negative (Negative) 11/26/23 Urine Leukocyte Esterase Trace (Negative) H 11/26/23 Urine WBC (Auto) 6-10 /hpf (0-5) H 11/26/23 Urine RBC (Auto) 0-2 /hpf (0-2) 11/26/23 Urine Hyaline Casts (Auto) 6-10 /lpf (0-2) H 11/26/23 Urine Epithelial Cells (Auto) 11-20 /hpf (0-2) H 11/26/23 Urine Bacteria (Auto) None Seen (None Seen) 11/26/23 COVID-19 PCR NEGATIVE (Negative) 11/26/23 Testing Electrocardiogram Date: 11/26/23 NSR at 94[address]. NS ST/TWA. Chest X-Ray Date: 11/27/23 FINDINGS: Lung volumes are normal. Lungs are clear. There is no pneumothorax or pleural effusion. Cardiac size is normal. Mediastinal contours are normal. There is no evidence for pulmonary edema. IMPRESSION: No acute cardiopulmonary findings. Other Testing Soft tissue Neck CT Date: 11/26/23 IMPRESSION: No abscess or cellulitis attention to the dentition. Limited evaluation due to dental metal artifact and patient motion. Severe right and moderate left carotid stenosis suspected. Carotid doppler Date: 11/27/23 IMPRESSION: Findings consistent with severe stenosis of the proximal right internal carotid artery, better depicted on CT of November 26, 2023. Approximate 90% stenosis of the proximal right internal carotid artery on that exam. Findings suggestive of less than 50% stenosis of the proximal left internal carotid artery. Neck CTA Date: 11/28/23 IMPRESSION: 1. Atherosclerosis with high grade stenosis at the origin of the right ICA. 2. High-grade stenosis at the origin of the right vertebral artery. 3. Pulmonary emphysema.
--- NOTE | 2023-12-23 16:00 | History & Physical Report ---
Date of Service December 23, 2023 History of Present Illness Primary Care Provider: Richi Alonzo MD [facility] [place] [address] Consultation Signed Patient: POLI VITAL Admit Date: 11/26/23 MR#: [id number] Att Phy: Patrice Dominguez MD Acct ID: [id number] Kanika Phy: Richi Alonzo III, MD Date: 1950 Fam Phy: Age: 73 Location: 3W Sex: F Room/Bed: [facility] cc: ~ *NOTICE TO RECEIVING REPUBLICAN/AGENCY This information is strictly Confidential and protected under [place] law. [place] law prohibits you from making any further disclosure of this information unless further disclosure is expressly permitted by the written consent of the person to whom it pertains or is authorized by law. A general authorization for the release of medical or other information is not sufficient for this purpose. Hospital accepts no responsibility if the information is made available to any other person, INCLUDING THE PATIENT. Date of Consultation November 28, 2023 Assessment & Plan (1) Stenosis of right carotid artery: Even though she is asymptomatic due to the severe stenosis of the carotid we recommended intervention. We went over the risks options and benefits of TCAR versus endarterectomy. She is elected to go ahead with a TCAR. According to her x-rays she is a TCAR candidate. I have discussed the risks options and benefits of the procedure with the patient. The patient understands the risks options and benefits and agrees to the procedure. This will be scheduled to be done in a couple weeks. I did start her on Plavix and she is already on a statin and baby aspirin. Thank you very much for letting us participate in the care of this patient. History of Present Illness Reason for Consultation: Severe right internal carotid artery stenosis Attending Physician: Patrice Dominguez MD History of Present Illness This 73-year-old female with past medical history significant for hyperl ipidemia, hypertension, history of polymyalgia rheumatica, osteoporosis, protein calorie malnutrition, diverticulosis of colon and diverticulitis, history of tobacco use disorder, depression. She was admitted for jaw pain and difficulty opening her mouth. During her workup she was found to have a severe stenosis of her right internal carotid artery. She denies any episodes of amaurosis fugax, TIA, or strokes. Allergies Allergy/AdvReac Type Severity Reaction Status Date / Time cyclobenzaprine Allergy Unknown * Verified 11/26/23 20:13 hydrocodone Allergy Unknown * Verified 11/26/23 20:13 propoxyphene Allergy Unknown * Verified 11/26/23 20:13 Quinolones AdvReac Intermediate N/V Verified 11/26/23 20:13 Home Medications Medication Instructions Recorded Confirmed Type lorazepam 1 mg tablet 0.5 mg PO Q8 PRN Anxiety 02/11/21 11/26/23 History amoxicillin 500 mg capsule 2,000 mg PO ONCE PRN before dental 11/26/23 11/26/23 History appointment atenolol 50 mg tablet 50 mg PO QAM 11/26/23 11/26/23 History omeprazole 20 mg capsule,delayed 20 mg PO DAILYBB 11/26/23 11/26/23 History release sucralfate 100 mg/mL oral 10 ml PO QID 11/26/23 11/26/23 History suspension Saccharomyces boulardii 250 mg 250 mg PO DAILY #4 caps 11/28/23 Rx capsule (Florastor) aspirin 81 mg tablet,delayed 81 mg PO QAM #30 tabs 11/28/23 Rx release atorvastatin 10 mg tablet 10 mg PO HS #30 tabs 11/28/23 Rx cephalexin 500 mg capsule 500 mg PO Q6H 4 days #16 caps 11/28/23 Rx clopidogrel 75 mg tablet (Plavix) 75 mg PO DAILY #30 tabs 11/28/23 Rx metronidazole 500 mg tablet 500 mg PO Q8H 4 days #12 tabs 11/28/23 Rx Patient History Surgical History History of dental surgery Family History Other Hypertension Social History Smoking Status: Never smoker Tobacco Type: Cigarettes Hx Alcohol Use: Yes Alcohol type: wine Alcohol Intake Frequency: Monthly or Less Hx Substance Use: Yes Last Used Substance: Unknown Last Used Substance Other:: uses medical marijuana "ocassionally", but not recently Preferred Language: Hebrew Communication Ability: Effective Turf Keeper Required: No Beliefs That Will Affect Care: None marital status: Single Current Living Situation: Significant Other Current Living Situation Comment: lives with sig. other in 2 story home, some reported difficulty with stairs current occupational status: retired Other Information That Helps Us Care for You: No Feels Safe at Home: Yes Safety Concerns: Feels Safe At This Time Assistive Devices: Denture - Upper Assistive Devices Comment: states that she is "getting a cane" due to recent weakness Review of Systems Review of Systems: All systems reviewed & are unremarkable except as noted in HPI & below Physical Exam Constitutional: WD/WN, vitals as above Respiratory: normal respiratory effort; no respiratory distress Auscultation: lungs clear to auscultation bilaterally Cardiovascular: RRR, no murmur, no edema Vessels: + carotid bruit (on right) Extremities: normal capillary refill Gastrointestinal (Abdomen): normal bowel sounds, soft, nontender, no hepatosplenomegaly Neurologic: CN's II-XI intact bilaterally and moves all extremities Psychiatric: Orientation: alert and oriented x 3 Results & Data Vital Signs (Past 12 Hours) Vital Signs Temp Pulse Pulse Resp BP Pulse Ox O2 Del Method 11/28/23 15:14 36.7 C 70 75 18 137/64 95 11/28/23 07:32 36.7 C 75 18 137/64 95 Room Air Signed By: <Electronically signed by Addison Atkins MD> 11/28/23 1534 Created: 11/28/23 1529 The status of this report is Signed. Draft = Not yet reviewed or approved by Medical Physician. Signed = Reviewed and approved by Medical Physician. Allergies Allergy/AdvReac Type Severity Reaction Status Date / Time cyclobenzaprine Allergy Severe Anaphylaxis Verified 12/17/23 09:05 nickel Allergy Mild Rash Verified 12/17/23 09:06 amoxicillin [From Augmentin] AdvReac Intermediate nausea, Verified 12/17/23 09:05 vomiting, diarrhea clavulanic acid AdvReac Intermediate nausea, Verified 12/17/23 09:05 [From Augmentin] vomiting, diarrhea hydrocodone AdvReac Mild nausea/vomi Verified 12/17/23 09:05 ting propoxyphene AdvReac Mild nausea/vomi Verified 12/17/23 09:05 ting Home Medications Medication Instructions Recorded Confirmed Type lorazepam 1 mg tablet 0.5 mg PO Q8 PRN Anxiety 02/11/21 12/17/23 History amoxicillin 500 mg capsule 2,000 mg PO ONCE PRN before dental 11/26/23 12/17/23 History appointment atenolol 50 mg tablet 50 mg PO QAM 11/26/23 12/17/23 History aspirin 81 mg tablet,delayed 81 mg PO QAM #30 tabs 11/28/23 12/17/23 Rx release atorvastatin 10 mg tablet 10 mg PO HS #30 tabs 11/28/23 12/17/23 Rx clopidogrel 75 mg tablet (Plavix) 75 mg PO QAM 12/17/23 12/17/23 History Past Med/Surg History Problem List Encounter for pre-operative examination Medical History Anxiety Carotid stenosis, right Generalized weakness Heart murmur Reported "years ago" per patient "No murmur" per 11/28/23 [facility] discharge summary or available recent [facility] PCP records History of diverticulitis Polymyalgia rheumatica Trismus Noted per [place] Oral/maxillofacial surgery Surgical History History of bilateral cataract extraction History of colon resection R/t diverticulitis History of colonoscopy History of dilatation and curettage History of lumbar discectomy History of tooth extraction Family History Other Hypertension No family history of adverse response to anesthesia Social History Smoking Status: Former smoker Tobacco Type: Cigarettes Smoking End Date: quit a couple months ago (was smoking 2 a day prior); Second Hand Exposure: No; Do You Dip or Chew Tobacco: No; Tobacco Cessation Education Requested by Patient: No Hx Alcohol Use: Yes Alcohol type: wine Alcohol Intake Frequency: Monthly or Less Hx Substance Use: No Preferred Language: Hebrew Communication Ability: Effective Turf Keeper Required: No Beliefs That Will Affect Care: None marital status: Single Current Living Situation: Other Current Living Situation Comment: Lives with roommate ([place]) current occupational status: retired Other Information That Helps Us Care for You: No Feels Safe at Home: Yes Safety Concerns: Feels Safe At This Time Assistive Devices: Denture - Upper
--- OUTSIDE RECORDS SUMMARY | 2023-12-24 06:49 | External Medical Summary | Summary of Care ---
Author Name Unknown Organization [facility] Address [address] [place] [address] Phone [phone] Care Team Providers Care Entry Manager Name Role Phone Cheri ESPINO MD, Richi Sanches Primary Care Provider [phone] Reason for Visit * Reason Onset Date Comments Test Results Lab 11/25/2023 Encounter Details Date Type Department Care Team (Late st Contact Info) Description 11/25/2023 Telephone General Internal Medicine [facility] [place] [address] [place] [address] Helena Carver MD [address] [facility] [address] Test Results Lab Allergies Active Allergy Reactions Criticality Noted Date Comments Cyclobenzaprine 12/05/2021 Other reaction(s): * Hydrocodone Hives High 01/27/1999 Nsaids 02/21/2000 Nausea heart flutters dizy Prednisone 03/28/2022 Hyper, jittery, insomnia Propoxyphene 01/26/2018 Other reaction(s): * Quinolones Medium 01/26/2018 Other reaction(s): N/V Sulfa Antibiotics 01/21/2013 Nausea, vomiting, and diarrhea documented as of this encounter (statuses as of 12/02/2023) Medications Medication Sig Dispensed Refills Start Date [...] as of this encounter (statuses as of 12/02/2023) Active Problems Problem Noted Date Diagnosed Date [...] as of this encounter (statuses as of 12/02/2023) Resolved Problems Problem Noted Date Diagnosed Date Resolved Date Palpitations 01/13/2012 03/31/2018 Anxiety state 01/13/2012 05/13/2018 Asthma with severity to be determined 01/13/2007 08/20/2016 Overview: ICD-10 update of inactive term Allergic rhinitis 01/13/2007 05/13/2018 Mixed dyslipidemia 07/22/2003 9 Overview: Per Lipid Taxonomy. PATHOLOGICAL FRACTURE OF VERTEBRAE 07/22/2003 02/21/2017 documented as of this encounter (statuses as of 12/02/2023) Immunizations Name Administration Dates Next Due COVID-19 [...] encounter Miscellaneous Notes * Telephone Encounter - Greer Hebert CMA - 12/02/2023 4:52 PM EDT Pt scheduled for OV tomorrow at 3:20 with Julyflorentin for ED f/u. * Telephone Encounter - Marii Hebert MED ASSIST - 11/26/2023 2:10 PM EDT Left message for the patient to call the office. Upon return call please transfer to a dedicated telephone nurse. * Telephone Encounter - Helena Carver MD - 11/26/2023 12:48 PM EDT Inc tylenol 1000 mg tid, warm compress, stretching Needs seen in office or go to urgent care if not better. * Telephone Encounter - Marine May LPN - 11/26/2023 9:23 AM EDT Patient calling. Given message. Verbalized understanding. She has a new problem. Neck and head painstarted last night. Patient calling with c/o of pain- Located neck and head Pain level 9/10 Type of pain throbbing and shooting Radiating to head, and face Is this a new acute pain: Yes Is this a chronic problem that has changed: No Symptoms started 1 day(s) ago. What has the patient taken for pain relief: one half tylenol, is not effective for relief. Pharmacy selected Please advise Placed with Dr. Haylie Glass on Saturday @ 2:40 p.m. * Telephone Encounter - Emilee Cazares MED ASSIST - 11/25/2023 6:47 PM EDT Left message for patient to return call to the office. Please transfer to a dedicated telephone nurse to provide information below upon return of call. * Telephone Encounter - Emilee Cazares MED ASSIST - 11/25/2023 6:45 PM EDT ----- Message from Helena Carver MD sent at 11/25/2023 6:09 PM EDT ----- Normal blood count, pancreatic enzyme, CMP with evidence of mild dehydration from recent diarrhea, slightly elevated calcium 10.3, borderline elevation liver enzymes AST, ALT 65 and 50 respectively. --repeat CMP in 2-3 days after adequate hydration;if still high needs US abdomen -check if symptoms better with prescribed omeprazole and Carafate documented in this encounter Plan of Treatment Upcoming Encounters Date Type Department Care Team (Late st Contact Info) Description 12/03/2023 3:20 PM EDT Office Visit Family Practice [facility] [place] [address] [facility] [place] [address] Corinne Garcia PA-C [address] [facility] [place] [address] 12/06/2023 11:30 AM EDT Nurse Only Ancillary [facility] Makayla [place] [address] [facility] [place] [address] Nurse Makayla Fam Prac [facility] [address] [facility] [place] [address] 12/25/2023 11:20 AM EDT Office Visit Family Practice [place] [facility] [address] [place] [address] Corinne Garcia PA-C [address] [facility] [place] [id number] Health Maintenance Due Date Last Done Comments [...] Additional history exists Lipid Panel 09/15/2026 09/15/2021, 0511/2016, 06/12/2013, Additional history exists DTaP,Tdap,and Td Vaccines (3 - Td or Tdap) 08/27/2027 08/26/2017, 12/25/2006 RETIRED - COLONOSCOPY-EVERY 5 YRS AGES 18-100 Discontinued 07/28/2010, 05/27/2009 VITAMIN D LEVEL ONCE IN A LIFETIME-USE SMARTSET# [id number] Completed 09/27/2021, 09/15/2021, 07/21/2020, Additional history exists [...] Not on filedocumented as of this encounter Care Teams Entry Manager Relationship Specialty Start Date End Date Richi Alonzo III, MD [address] [facility] [place] [address] PCP - General Family Medicine 08/20/16 documented as of this encounter
--- OUTSIDE RECORDS SUMMARY | 2023-12-24 06:49 | External Medical Summary | Continuity of Care Document ---
Author Name Unknown Organization [facility] [address] [facility] Address [address] [place], [place] [id number] Care Team Providers Care Entry Level Accounting Clerk Name Role Phone Corinne Garcia Primary Care Physician [phone] Encounter [facility] [id number] Date(s): 12/04/23 - 12/04/23 [facility] [address], [address] [place] [address] [phone] Encounter Diagnosis Carotid stenosis, bilateral(Discharge Diagnosis) - 12/04/23 Discharge Disposition: Home or Self Care Attending Physician: ALAYNA Segura Lynn Allergies, Adverse Reactions, Alerts Substance Criticality Severity Reaction Reaction Severity Status Flexeril unknown Active HYDROcodone unknown Active Assessment and Plan Extracted from: Title:Clinical Document Author:ALAYNA Segura Lynn Date:12/04/23 [facility] OUTPATIENT NOTE Name: POLI VITAL Patient Number: [id number] : 1950 Date of Service: 12/04/2023 Chief Complaint: _Office visit to discuss TCAR procedure HPI: _Mrs. Vital is an elderly female who presents to Dr. Atkins's vascular surgery clinic today with several questions to discuss regarding an upcoming TCAR procedure. Patient was admitted to [facility] last week due to some jaw pain and imaging performed at the time had indicated an asymptomatic right ICA stenosis of 90% by CT scan. Dr. Atkins was consulted for the patient regarding the degree of stenosis here. He saw the patient and discussed the options of carotid endarterectomy versus transcarotid artery revascularization with the patient. She elected to proceed with TCAR. She is scheduled for December 23. She does state that when she went home she realized she had more questions and wished to discuss these in person today. Specifically her questions are mostly in regard to the medications that she is required to take and whether she will require refills for these and how long she will need to take them in the long-term. She denies any new concerning symptoms of cerebrovascular insufficiency including amaurosis, unilateral extremity weakness numbness or tingling, difficulty speaking or swallowing, facial droop, sudden onset confusion. The only symptom that she is concerned about is the continuing right jaw pain that she is experiencing. She states that while in the hospital she was diagnosed with a dental infection, and that she took all of the prescribed antibiotics, but that she still has some discomfort there while it is not as bad as it was previously. She does not have any follow-up appointments scheduled with her dentist yet. Current Home Meds: (Last Updated 12/03 09:17) LORazepam (LORazepam 1 mg oral tablet) TAKE 1/2 TABLET BY MOUTH EVERY 8 HOURS IF NEEDED FOR ANXIETY aspirin (aspirin 81 mg oral delayed release tablet) 81 mg PO Daily atenolol (atenolol 50 mg oral tablet) TAKE 1 TABLET BY MOUTH EVERY MORNING atorvastatin (atorvastatin 10 mg oral tablet) 10 mg PO Daily clopidogrel (clopidogrel 75 mg oral tablet) 75 mg PO Daily Allergies and Sensitivities: HYDROcodone(unknown) Flexeril(unknown) Past Medical History: Problems: Carotid stenosis, bilateral Peripheral vascular disease Arthritis of both feet Metatarsalgia of both feet Hallux valgus, bilateral Pain in both feet OBJECTIVE Vitals: Last Updated 12/04/23 09:22 Date Temp BP Location Pulse RR SpO2 Pain 12/04/23 126/78 Left Arm 71 96 0 09/26/23 7 Vital Signs are the last 3 documented. No Orthostatic Data Available Height and Weight: Last Updated 09/26/23 14:31 Date BMI Wt(kg) Wt(lb) Method Ht(cm) (ft-in) Method 09/26/23 18.35 43.8 96 Standing Scale 154.5 5-1 Standing Heights and Weights are the last 3 documented. Physical Exam Constitutional: In general patient is a thin but healthy-appearing well- nourished well-developed elderly female in no distress. Is alert and oriented without focal deficits. Her right carotid does demonstrate a bruit. Her jaw demonstrates no swelling, but is mildly tender. ASSESSMENT: _ PLAN: _ 1 ) _right ICA stenosis Patient has a known right ICA severe stenosis by CT scan, and is at significantly increased risk of suffering a TIA versus CVA without intervention. All questions regarding TCAR as well as the necessary medications were answered to the patient's satisfaction prior to her leaving today. She was given a pamphlet about the procedure to read at home. The procedure was discussed at length with her. Her friend was present for this discussion as well. Due to the fact that she may still have a dental infection present and risk of seeding, would recommend that she be evaluated and cleared by a dentist or oral surgeon prior to proceeding with her right TCAR. Patient will call her dentist to make an appointment, and let us know whether we have to move her surgery date. Patient was advised to call our office if she has any further questions or concerns. She is agreeable to this plan. Thank you for letting us participate in the care of this patient. I have personally spent__28_ minutes performing qaee-wz-hyhc and gli-tsdr-qf-face activities on this date of service.Time does not include separately reported services. Activities Include: _x_ review of the medical record x__ obtaining a history _x_ physical exam/evaluation __ review labs _x_ review radiology reports _x_ counseling/educating patient/family/caregiver _x_ discussion/referral to other healthcare professional _x_ documenting care in the medical record __ independent interpretation of results __ communication of results to patient/family/caregiver _x_ coordination of care Medications aspirin 81 mg oral delayed release tablet Start: 12/04/23 9:16:00 AM EDT, 1 tab, PO, Daily Start Date: 12/04/23 Status: Ordered atenolol 50 mg oral tablet TAKE 1 TABLET BY MOUTH EVERY MORNING Start Date: 09/26/23 Status: Ordered atorvastatin 10 mg oral tablet Start: 12/04/23 9:16:00 AM EDT, 1 tab, PO, Daily Start Date: 12/04/23 Status: Ordered clopidogrel 75 mg oral tablet Start: 12/04/23 9:16:00 AM EDT, 1 tab, PO, Daily Start Date: 12/04/23 Status: Ordered LORazepam 1 mg oral tablet TAKE 1/2 TABLET BY MOUTH EVERY 8 HOURS IF NEEDED FOR ANXIETY Start Date: 09/26/23 Status: Ordered Mental Status 12/04/23 Barriers to Learning one year None evide nt Mandatory Health Literacy Documentation Yes Health Literacy Communication Barriers N ever Primary Language Nauruan Problem List Condition Confirmation Course Effective Dates Status H ealth Status Informant Arthritis of both feet Confirmed Active Carotid stenosis, bilateral Confirmed Active Pain in both feet Confirmed Active Hallux valgus, bilateral Confirmed Active Metatarsalgia of both feet Confirmed Active Peripheral vascular disease Confirmed Active Diagnosis Diagnosis Type Effective Dates Health Status Cl inical Service Informant Carotid stenosis, bilateral Discharge Diagnosis 12/04/23 Vital Signs Most recent to oldest [Reference Range]: 1 Heart Rate 71 bpm (12/04/23 9:22 AM) Blood Pressure 126/78mmHg (12/04/23 9:22 AM) Cuff Pulse Pressure 48 mmHg (12/04/23 9:22 AM) BP Location # 1 Left Arm (12/04/23 9:22 AM) Social History Social History Type Response Smoking Status Former Smoker, quit within 31 days - 1 yr Sex Female Sex Representation Female (finding) [facility] Outpt Note * ALAYNA Segura Lynn: PERFORM Event Display: HVI Outpt Note Authored Date: [id number] [facility] OUTPATIENT NOTE Name: POLI VITAL Patient Number: [id number] : 1950 Date of Service: 12/04/2023 Chief Complaint: _Office visit to discuss TCAR procedure HPI: _Mrs. Vital is an elderly female who presents to Dr. Atkins's vascular surgery clinic today with several questions to discuss regarding an upcoming TCAR procedure. Patient was admitted to [facility] last week due to some jaw pain and imaging performed at the time had indicated an asymptomatic right ICA stenosis of 90% by CT scan. Dr. Atkins was consulted for the patient regarding the degree of stenosis here. He saw the patient and discussed the options of carotid endarterectomy versus transcarotid artery revascularization with the patient. She elected to proceed with TCAR. She is scheduled for December 23. She does state that when she went home she realized she had more questions and wished to discuss these in person today. Specifically her questions are mostly in regard to the medications that she is required to take and whether she will require refills for these and how long she will need to take them in the long-term. She denies any new concerning symptoms of cerebrovascular insufficiency including amaurosis, unilateral extremity weakness numbness or tingling, difficulty speaking or swallowing, facial droop, sudden onset confusion. The only symptom that she is concerned about is the continuing right jaw pain that she is experiencing. She states that while in the hospital she was diagnosed with a dental infection, and that she took all of the prescribed antibiotics, but that she still has some discomfort there while it is not as bad as it was previously. She does not have any follow-up appointments scheduled with her dentist yet. Current Home Meds: (Last Updated 12/03 09:17) LORazepam (LORazepam 1 mg oral tablet) TAKE 1/2 TABLET BY MOUTH EVERY 8 HOURS IF NEEDED FOR ANXIETY aspirin (aspirin 81 mg oral delayed release tablet) 81 mg PO Daily atenolol (atenolol 50 mg oral tablet) TAKE 1 TABLET BY MOUTH EVERY MORNING atorvastatin (atorvastatin 10 mg oral tablet) 10 mg PO Daily clopidogrel (clopidogrel 75 mg oral tablet) 75 mg PO Daily Allergies and Sensitivities: HYDROcodone(unknown) Flexeril(unknown) Past Medical History: Problems: Carotid stenosis, bilateral Peripheral vascular disease Arthritis of both feet Metatarsalgia of both feet Hallux valgus, bilateral Pain in both feet OBJECTIVE Vitals: Last Updated 12/04/23 09:22 Date Temp BP Location Pulse RR SpO2 Pain 12/04/23 126/78 Left Arm 71 96 0 09/26/23 7 Vital Signs are the last 3 documented. No Orthostatic Data Available Height and Weight: Last Updated 09/26/23 14:31 Date BMI Wt(kg) Wt(lb) Method Ht(cm) (ft-in) Method 09/26/23 18.35 43.8 96 Standing Scale 154.5 5-1 Standing Heights and Weights are the last 3 documented. Physical Exam Constitutional: In general patient is a thin but healthy-appearing well- nourished well-developed elderly female in no distress. Is alert and oriented without focal deficits. Her right carotid does demonstrate a bruit. Her jaw demonstrates no swelling, but is mildly tender. ASSESSMENT: _ PLAN: _ 1 ) _right ICA stenosis Patient has a known right ICA severe stenosis by CT scan, and is at significantly increased risk ofsuffering a TIA versus CVA without intervention. All questions regarding TCAR as well as the necessary medications were answered to the patient's satisfaction prior to her leaving today. She was given a pamphlet about the procedure to read at home. The procedure was discussed at length with her. Her friend was present for this discussion as well. Due to the fact that she may still have a dental infection present and risk of seeding, would recommend that she be evaluated and cleared by a dentist or oral surgeon prior to proceeding with her right TCAR. Patient will call her dentist to make an appointment, and let us know whether we have to move her surgery date. Patient was advised to call our office if she has any further questions or concerns. She is agreeable to this plan. Thank you for letting us participate in the care of this patient. I have personally spent__28_ minutes performing jboq-xr-ypbm and vpe-bwog-di-face activities on this date of service.Time does not include separately reported services. Activities Include: _x_ review of the medical record x__ obtaining a history _x_ physical exam/evaluation __ review labs _x_ review radiology reports _x_ counseling/educating patient/family/caregiver _x_ discussion/referral to other healthcare professional _x_ documenting care in the medical record __ independent interpretation of results __ communication of results to patient/family/caregiver _x_ coordination of care Electronic Signature on File CC: July A BRETT Garcia [address] [facility] [address] * Electronically Reviewed/Signed by: Leesa Segura PA-C Author Signature Dt/Tm:12/04/2023 01:51 PM Lamar SShiva [facility] [address] [facility], [address] [place]. [address] LM Patient Care team information Care Team Personnel Name: ALAYNA Garcia, July Position: Referring DIRECT Member Role: Primary Care Provider Address: [address] [place] [id number] [place]
--- OUTSIDE RECORDS SUMMARY | 2023-12-24 06:49 | External Medical Summary | Continuity of Care Document ---
Author Name Unknown Organization [facility] [address] Address [address] [place], [place] [id number] Care Team Providers Care Svp Chief Marketing Officer Name Role Phone Richi Alonzo Primary Care Physician [phone] Encounter [facility] [id number] Date(s): 12/10/23 - 12/10/23 [facility] [address] [facility] [address] [facility] [address] [facility] [address] [place], [place] [phone] Encounter Diagnosis Occlusion and stenosis of bilateral carotid arteries(Final) - Discharge Disposition: Home or Self Care Attending Physician: MD Atkins Eugene J Referring Physician: MD Atkins Eugene J Allergies, Adverse Reactions, Alerts Substance Criticality Severity Reaction Reaction Severity Status Flexeril unknown Active HYDROcodone unknown Active Medications aspirin 81 mg oral delayed release [...] FOR ANXIETY Start Date: 09/26/23 Status: Ordered Problem List Condition Confirmation Course Effective Dates Status H ealt Status Informant Arthritis of both feet Confirmed Active Carotid stenosis, bilateral Confirmed Active Pain in both feet Confirmed Active Hallux valgus, bilateral Confirmed Active Metatarsalgia of both feet Confirmed Active Peripheral vascular disease Confirmed Active Results Laboratory List Name Date Platelet Function (P2Y12 Receptor) (PLT FUNCTION P2Y12) 12/10/23 Most recent to oldest [Reference Range]: 1 P2Y12 Platelet Function [194-418 PRU] 60 PRU 1 *LOW* (12/10/23 10:34 AM) 1Result Comment: PRU reference range is 194-418 (healthy adults, no drug treatment). Post Drug Results: Lower PRU levels are expected following treatment with antiplatelet drugs. Post-treatment values are usually below the stated reference range above. The post-drug PRU values reported in the VerifyNOW P2Y12 package insert are 18-435. This broader range reflects the variability in drug response and is consistent with significant numbers of patients with decreased sensitivity to P2Y12 receptor antagonists (prasugrel or clopidogrel). Clinical studies suggest an on-treatment PRU>230 indicates less than optimal response to therapy, and PRU<208 at 12-24 hours after percutaneous intervention or during follow-up is associated with a lower risk of cardiovascular events (1). (1).Standard-vs high-dose clopidogrel based on platelet function testing after percutaneouscoronary intervention: the GRAVITAS randomized trial. Bonilla et al. TONIE. 2010June 28; 305(11): 3148-8696. doi: 10.1001/tonie.2011.290 Social History Social History Type Response Smoking Status Former Smoker, quit within 31 days - 1 yr Sex Female Sex Representation Female (finding) Patient Care team information Care Team Personnel Name: MD Alonzo John E Position: Referring DIRECT Member Role: Primary Care Provider Address: [address] [place] [address]
--- OUTSIDE RECORDS SUMMARY | 2023-12-24 06:49 | External Medical Summary | Continuity of Care Document ---
Author Name Unknown Organization [facility] [address] [address] Address [address] [place] [id number] Care Team Providers Care Medical Record Clerk Name Role Phone Cheri Richi Verónica Primary Care Physician [phone] Encounter [facility] [id number] Date(s): 12/19/23 - 12/19/23 [facility] [address] [address] [facility] [address] [place] [phone] Encounter Diagnosis Arthritis of both feet(Discharge Diagnosis) - 12/19/23 Pain in both feet(Discharge Diagnosis) - 12/19/23 Hallux valgus, bilateral(Discharge Diagnosis) - 12/19/23 Metatarsalgia of both feet(Discharge Diagnosis) - 12/19/23 Peripheral vascular disease(Discharge Diagnosis) - 12/19/23 Discharge Disposition: Home or Self Care Attending Physician: YARON Ritter Christina L Allergies, Adverse Reactions, Alerts Substance Criticality Severity Reaction Reaction Severity Status Flexeril unknown Active HYDROcodone unknown Active Assessment and Plan Extracted from: Title:Follow Up Visit Author:YARON Ritter Ch ristina L Date:12/19/23 1.Arthritis of both feet I again discussed with patient that really the only treatment modality we have for her bunion and hammertoe deformities conservativeorthopedic shoes are what I recommend I do think she should give her shoes a chance as I do feel they are well-madeand will appropriately support her feet. Could considertopical Voltaren gel for any ongoing foot pain. Patient remains not a surgical candidate. She request that I do not trim her calluses which I respect. Patient may follow-up in 4 to 5 months. I spent 3 minute planning including prepping note and chart review. I spent 13 minute fmud-xg-hfby interaction with patient addressing issuesdiscussed in visit today. I spent 3 minute time in postop visitplanning including note finishing in depart process. Total time spent on patient visit 19 minutes. 2.Pain in both feet 3.Hallux valgus, bilateral 4.Metatarsalgia of both feet 5.Peripheral vascular disease Medications aspirin 81 mg oral capsule Start: 12/19/23 11:05:00 AM EDT Start Date: 12/19/23 Status: Ordered aspirin 81 mg oral delayed release tablet [...] Start Date: 09/26/23 Status: Ordered Mental Status 12/19/23 Barriers to Learning one year None evide nt Mandatory Health Literacy Documentation Yes Health Literacy Communication Barriers N ever Primary Language Swedish Problem List Condition Confirmation Course Effective Dates Status H ealth Status Informant Arthritis of both feet Confirmed Active Carotid stenosis, bilateral Confirmed Active Pain in both feet Confirmed Active Hallux valgus, bilateral Confirmed Active Metatarsalgia of both feet Confirmed Active Peripheral vascular disease Confirmed Active Diagnosis Diagnosis Type Effective Dates Health Status Clinical Service Informant Arthritis of both feet Discharge Diagnosis 12/19/23 Non-Specified Metatarsalgia of both feet Discharge Diagnosis 12/19/23 Non-Specified Peripheral vascular disease Discharge Diagnosis 12/19/23 Non-Specified Pain in both feet Discharge Diagnosis 12/19/23 Non-Specified Hallux valgus, bilateral Discharge Diagnosis 12/19/23 Non-Specified Vital Signs Most recent to oldest [Reference Range]: 1 Height 152.1 cm (12/19/23 11:06 AM) Patient Weight 41.9 kg (12/19/23 11:06 AM) Body Mass Index 18.11 kg/m2 (12/19/23 11:06 AM) Social History Social History Type Response Smoking Status Former Smoker, quit within 31 days - 1 yr Sex Female Sex Representation Female (finding) Ortho Outpt Note * YARON Ritter, Shellie Manzo: PERFORM Event Display: Ortho Outpt Note Authored Date: Chief Complaint b/l foot pain follow-up, pt still notes no imporvemnet Primary Care Provider MD Cheri, Richi Avendaño Patient is a very pleasant 73-year-old female last seen September 26, 2023 for bilateral foot pain. -I discussed with patient that she has arthritis in both of her feet she has bunion and hammertoe deformityI do not feel she is an appropriate surgical candidate given her medical history and advanced ageI recommended orthopedic shoes and insolesI provided her with [facility] patient follows up today. -Patient did obtain her orthopedic shoes unfortunately she is not spent time breaking them inshe has some issues with her carotid artery and will be having surgery next weekshe brought her shoes in for me to evaluate as well as the inserts they do look appropriateand also brought in severalpadding for her bunions. Review of Systems Cataracts and unexpected weight loss Objective Vitals & Measurements WT:41.900kg(Dosing) WT:41.9kg Physical Exam Problem focused bilateral feet: Dorsalis pedis pulse [...] foot and actually made her foot more tender,patient request that I do not debride her calluses. X-ray dictation 3 viewsbilateral feet:Taken at September 26, 2023 visit Assessment/Plan 1.Arthritis of both feet I again discussed with patient that really the only treatment modality we have for her bunion andhammertoe deformities conservativeorthopedic shoes are what I recommend I do think she should give her shoes a chance as I do feel they are well-madeand will appropriately support her feet. Could considertopical Voltaren gel for any ongoing foot pain. Patient remains not a surgical candidate. She request that I do not trim her calluses which I respect. Patient may follow-up in 4 to 5 months. I spent 3 minute planning including prepping note and chart review. I spent 13 minute tlfk-sv-lutp interaction with patient addressing issuesdiscussed in visit today. I spent 3minute time in postop visitplanning including note finishing in depart process. Total time spent on patient visit 19 minutes. 2.Pain in both feet 3.Hallux valgus, bilateral 4.Metatarsalgia of both feet 5.Peripheral vascular disease Electronic Signature on File Electronically Reviewed/Signed by: Shellie Ritter DPM Author Signature Dt/Tm:12/19/2023 11:32 AM Division of Sports Medicine CLR Patient Care team information Care Team Personnel Name: MD Alonzo John E Position: Referring DIRECT Member Role: Primary Care Provider Address: [address] [place] [address]
[2023-12-24] MEDS ORDERED: DEXAMETHASONE SOD INJ 4 MG/ML VIAL ONE (06:52)
[2023-12-24] MEDS ORDERED: PROPOFOL IV EMULSION 10 MG/ML 20 ML VIAL IV ONE (06:52)
[2023-12-24] MEDS ORDERED: GLYCOPYRROLATE 0.2 MG/ML VIAL ONE (06:52)
[2023-12-24] MEDS ORDERED: ONDANSETRON INJ 2 MG/ML 2 ML VIAL ONE (06:52)
[2023-12-24] MEDS ORDERED: MIDAZOLAM HCL 1 MG/ML 2ML VIAL ONE (06:52)
[2023-12-24] MEDS ORDERED: ROCURONIUM BROMIDE 10 MG/ML 5 ML VIAL IV ONE (06:52)
[2023-12-24] MEDS ORDERED: LIDOCAINE 2% 2 ML VIAL/AMP(20MG/ML) INFIL ONE (06:52)
[2023-12-24] MEDS ORDERED: fentaNYL citrate PF 100 MCG/2 ML VIAL ONE (06:52)
[2023-12-24] MEDS ORDERED: SUGAMMADEX SODIUM 200 MG/2 ML VIAL IV ONE (06:59)
[2023-12-24] MEDS ORDERED: HEPARIN SOD (PORCINE) 1000 UNIT/ML ONE (07:00)
[2023-12-24] MEDS ORDERED: PROTAMINE SULFATE 10 MG/ML 5 ML VIAL IV ONE (07:08)
[2023-12-24 07:26] LABS: BUN Creatinine Ratio 12.7 (10-20); Creatinine Clr Calc Pharmacy 46.6 ml/min; Est GFR (African American) 97.3 ml/min; Est GFR (Non-African American) 83.9 ml/min; Potassium 4.3 mmol/L (3.5-5.1)
[2023-12-24] MEDS ORDERED: PHENYLEPHRINE HCL 25 MG/250 ML NSS IV ONE (07:40)
[2023-12-24] MEDS ORDERED: ATROPINE SULFATE 0.1 MG/ML 10ML SYR IV PRN (07:41)
[2023-12-24] MEDS: SODIUM CHLORIDE 0.9% 1,000 ML IV SCH (07:41)
[2023-12-24] MEDS ORDERED: LABETALOL HCL IV 5 MG/ML 20ML IV PRN (07:41)
[2023-12-24] MEDS ORDERED: fentaNYL citrate PF 100 MCG/2 ML VIAL IV PRN (07:41)
[2023-12-24] MEDS ORDERED: ePHEDrine sulfate 50 MG/ML AMP IV PRN (07:41)
--- NOTE | 2023-12-24 07:44 | History & Physical Bridge Note ---
Date of Service December 24, 2023 History & Physical Bridge Note I have examined the patient, reviewed the History & Physical and in the interval since the performance of the History & Physical I have noted the following changes of clinical significance: no changes noted
[2023-12-24] MEDS: CEFAZOLIN 2,000 MG/15 ML SYR IV SCH (08:50)
[2023-12-24] MEDS: ceFAZolin 330 MG/ML 1 GM VIAL ONE (09:24)
[2023-12-24] MEDS: SURGICEL ABSORB HEMOSTAT 2IN X 14IN TOP ONE (09:46)
[2023-12-24] MEDS: VISIPAQUE IV ONE (09:49)
--- NOTE | 2023-12-24 09:59 | Post Operative Brief Note ---
Immediate Post Op Note Date of Surgery December 24, 2023 Pre & Post Diagnosis Operation Date: 12/24/23 08:30 Pre-Op Diagnosis: Right Carotid Artery Stenosis Post-Op Diagnosis: Right Carotid Artery Stenosis I identified the patient and participated in the time-out.: Yes Procedure Operation Date: 12/24/23 08:30 Actual Procedures p Right Transcarotid Artery Revascularization, Ultrasound Left Femoral Vein(Right) - Addison Atkins MD Surgeon Addison Atkins MD Regional Facilities Specialist MD Vidal Estimated Blood Loss 10 Findings Consistent with Post-Op Diagnosis Anesthesia Type General Complications none Disposition Accompanied Patient To Recovery: No Disposition: Recovery Room
[2023-12-24] MEDS: THROMBIN FOR SOLN 20000 UNIT KIT ONE (10:06)
[2023-12-24] MEDS: BUPIVACAINE/EPINEPHRINE 0.5% MPF 1:200,000 30 ML VIAL ONE (10:06)
[2023-12-24] MEDS: GELATIN SPONGE SZ 100 ONE (10:06)
--- NOTE | 2023-12-24 10:18 | Operative Report ---
Post Operative Report Pre & Post Diagnosis Operation Date: 12/24/23 08:30 Pre-Op Diagnosis: Severe, asymptomatic right carotid artery stenosis Post-Op Diagnosis: Severe, asymptomatic right carotid artery stenosis I identified the patient and participated in the time-out.: Yes Procedure Operation Date: 12/24/23 08:30 Actual Procedures p Right Transcarotid Artery Revascularization, Ultrasound Left Femoral Vein(Right) - Addison Atkins MD Surgeon Addison Atkins MD Rigger Chief MD Vidal; Leesa Segura PA-C Estimated Blood Loss 10 Findings See Below Severe right carotid artery stenosis with partial involvement of the distal common carotid artery and severe calcification of the internal carotid artery. Patient had improved, brisk blood flow after balloon angioplasty and stent placement. Stent had good wall apposition on completion angiogram. Specimens None Anesthesia Type General Complications None Disposition Accompanied Patient To Recovery: Yes Indications 73 year old female with history of asymptomatic, high grade right carotid artery stenosis who was a candidate for revascularization. After discussion of possible interventions, including risks and benefits, patient elected to undergo TCAR. Description of Procedure The patient was brought to the operating room, where lines were placed and general anesthesia was accomplished by anesthesia team. A shoulder roll was placed and the neck was rotated towards the left side of the patient. The right neck and bilateral groins were prepped and patient was draped in the usual sterile fashion. A timeout was performed identifying the correct patient by name, procedure, and location of procedure and all were in agreement. A 3cm transverse skin incision was made between the sternal and clavicular heads of the sternocleidomastoid muscle. We used electrocautery to go through the superficial soft tissue. The muscle heads were retracted to each side and the carotid sheath was identified. Using blunt dissection, the carotid sheath was opened and 3cm of common carotid artery (CCA) were isolated. Umbilical tape was placed around the proximal CCA under direct visualization. A 5-0 prolene U- stitch was pre-placed in the anterior wall of the CCA to facilitate hemostasis after removal of the arterial sheath at completion of the procedure. The patient was given 5,000 units of IV heparin. The contralateral (left) common femoral vein was accessed under ultrasound guidance using an access needle and a wire and sheath were placed using modified Seldinger technique. The venous return sheath was advanced into the common femoral vein over the 0.035" wire. Blood was aspirated from the flow line and the sheath was flushed with heparinized saline.The sheath was secured to the patient's skin with a 2-0 silk stitch to maintain position in the vessel. We then turned our attention back to the neck. The ACT was confirmed to be above 250 seconds prior to arterial access. A 4-Arabic non-stiffened micropuncture set was used, puncturing the common carotid artery with a 21G needle through the pre-placed U-stitch while holding gentle traction on the umbilical tape to stabilize the CCA within the incision. The micropuncture wire was advanced 3-4cm into the CCA and the 21G needle removed. The micropuncture sheath was advanced 3cm into the CCA and the wire and dilator were removed. A cerebral angiogram was obtained after ensuring there were no air bubbles in the system. The J-tipped guidewire was inserted and we stopped short at the common carotid artery before the area of stenosis. After micropuncture sheath removal, the transcarotid arterial sheath was advanced to the 3cm marker and the 0.035" wire and dilator were removed. Arterial sheath position was assessed under fluoroscopy. The arterial sheath was sutured to the patient at two sites. The Flow Controller was connected to the transcarotid arterial sheath, prepared by passively allowing arterial blood to backfill the line and then it was connected to the venous return sheath. The CCA was clamped proximally with a Verenice tourniquet to ensure active flow reversal. Heparinized saline was delivered into the venous flow line to confirm adequate flow reversal. A TCAR timeout was performed, heart rate was >70bpm and systolic BP was >140mmHg. Patient had been pretreated with glycopyrrolate and atropine was available. The lesion was crossed with an 0.014" guidewire and pre-dilation balloon angioplasty was performed with a 5x35mm [employer] rapid exchange balloon. We then attempted to introduce our stent into the area of stenosis but we met resistance and removed the undeployed stent. We performed pre-dilation balloon angioplasty with a 5.5x25mm balloon at the area where we met resistance. We again attempted to pass our stent to the area of stenosis. A 8-6x40mm ENROUTE transcarotid stent was placed. A completion angiogram was performed showing appropriate stent position with good wall apposition. Post-dilation balloon angioplasty was performed with a 6x25mm [employer] rapid exchange balloon. At TCAR case completion, antegrade flow was restored by releasing the tourniquet on the CCA and closing the stopcocks to the flow lines. The total clamp time was 15 minutes. The transcarotid arterial sheath was removed and the pre-placed suture was tied. 25mg of protamine were given. A repeat ACT was obtained and was <140. The venous return sheath was removed and hemostasis achieved with manual compression. The neck incision was irrigated with saline solution and was hemostatic before closure. 20cc of 0.25% marcaine with epinephrine were used for local anesthesia around skin edges. The platysma was approximated with 3-0 Vicryl running suture and the skin was closed with 4-0 running Vicryl suture and covered with Dermabond. The patient tolerated the procedure well and was extubated in the operating room. She was moving all four extremities to command prior to transfer to the recovery room. All counts were correct at the end of the procedure. Fluoroscopy time was 4.9 minutes, radiation dose was 27mGy and 16cc of contrast were used. Dr. Atkins was present and scrubbed for the entire procedure. I attest to the content of the Intraoperative Record and any orders documented therein. Any exceptions are noted below.
--- NOTE | 2023-12-24 11:53 | Anesthesiology Progress Note ---
Date of Service December 24, 2023 Anesthesia Post Procedure Vital Signs Vital Signs: Temp Pulse Resp BP BP BP Pulse Ox 12/24/23 11:20 36.8 C 69 13 124/66 133/55 L 94 12/24/23 11:10 36.8 C 70 16 129/65 144/60 H 93 12/24/23 11:00 36.8 C 71 18 138/75 149/66 H 98 12/24/23 10:50 73 13 152/75 H 159/69 H 100 12/24/23 10:40 73 15 154/78 H 157/68 H 100 12/24/23 10:30 77 17 129/80 149/62 H 100 12/24/23 10:21 36.0 C L 84 16 156/65 H 180/34 H 100 12/24/23 07:16 36.7 C 67 18 177/100 H 180/93 H 95 O2 Del Method O2 Flow Rate 12/24/23 11:20 Room Air 12/24/23 11:10 Room Air 12/24/23 11:00 Room Air 12/24/23 10:50 Oxymask 3 12/24/23 10:40 Oxymask 2 12/24/23 10:30 Oxymask 3 12/24/23 10:21 Oxymask 5 12/24/23 07:16 Room Air Transfer of Care Handoff Completed per policy Notes Mental Status: alert / awake / arousable Patient Amnestic to Procedure: Yes Nausea / Vomiting: adequately controlled Pain: adequately controlled Airway Patency, RR, SpO2: stable & adequate BP & HR: stable & adequate Hydration State: stable & adequate Anesthetic Complications: no major complications apparent and Pt Satisfied with anesthetic care
[2023-12-24] MEDS ORDERED: STAT IV Infusion **Titration per Protocol STA (11:55)
[2023-12-24] MEDS ORDERED: LORazepam 0.5 MG TAB PO PRN (11:55)
[2023-12-24] MEDS ORDERED: oxyCODONE/ACETAMINOPHEN 5mg/325mg TAB PO PRN (11:55)
[2023-12-24] MEDS: LACTATED RINGER'S 1,000 ML IV SCH (12:46)
--- NOTE | 2023-12-24 12:46 | Critical Care Consultation ---
Date of Consultation December 24, 2023 Assessment & Plan (1) S/P vascular surgery: (2) Carotid artery stenosis: (3) Hypertension: (4) Hyperlipidemia: (5) Polymyalgia rheumatica: Plan Reason Critically Ill: 73-year-old female with significant history of hypertension, hyperlipidemia, PMR, and carotid artery stenosis who is status post RIGHT sided TCAR. Patient admitted to the ICU for close monitoring and management. NEURO - * CAM ICU: NEGATIVE * Their assessment per unit policy status post carotid intervention. CARDIAC/VASCULAR - * Hypertension/hyperlipidemia: * Restart home medications when tolerated. * Patient is normotensive post intervention. * Monitor on telemetry. RESPIRATORY - * Saturating well on room air. * Prior history of tobacco abuse. GI/NUTRITION - * Progress diet as tolerated RENAL/LYTES - * Monitor electrolytes, replace appropriately. - * Monitor I&Os ENDO - * No h/o DM or Thyroid Dz * BSGs per unit protocol. ISS --> gtt per unit policy. HEME - * Stable H&H * Monitor for s/s bleeding s/p vascular intervention. ID - * Prophylactic antibiotic per vascular surgery. LINES/IV ACCESS - * PIVs x2 * RIGHT Radial Arterial Line DVT PROPHYLAXIS - * Defer to vascular surgery. * SCDs Thank you for allowing us to participate in the care of this patient. Please refer to my attending physician's documentation for any further recommendations. Supervising Physician Co-Signing Physician Notes I saw and evaluated the patient with Josh Montero PA-C, and agree with findings and plan as documented in the note. 73-year-old male present to the hospital for right-sided TCAR Past medical history hypertension, dyslipidemia, smoker, polymyalgia rheumatica At the time of examination patient's partner was in the room Blood pressure was in the 120s Heart rate in the 60s. She was complaining of some discomfort at the site of the neck where the incision was. Soreness in the throat. No difficulty swallowing. Patient was moving all extremities without any issues No chest pain, no shortness of breath No abdominal pain Constitutional: No acute distress HEENT: EOMI, PERRLA, minimal hematoma appreciated around the incision site, surrounding swelling, no stridor Respiratory system: Decreased air entry bilaterally, no wheeze, no rhonchi, mild crackles bilaterally CVS: S1-S2 positive, no murmurs or gallops Abdomen: Soft, nontender, nondistended, positive bowel sounds x4 Extremities: +2 pulses bilaterally radialis/ dorsalis pedis, no cyanosis, no edema Neuro: Awake alert oriented x3 Psych: Normal mood and affect G/U: No Raymond --Prophylaxis VTE: IPC GI: None Lines: Right radial arterial, Diet: Cardiac Plan: Strict in and out Neurochecks Monitor H&H Monitor for worsening swelling of the right neck Please note the above document was generated using voice recognition software. It may contain grammatical, syntax or spelling errors.Any formal questions or concerns about the content, text or information contained within the body of this dictation should be directly addressed to the provider for clarification. History of Present Illness Reason for Consultation: s/p RIGHT sided TCAR Requesting Physician: Dr. Atkins Attending Physician: Addison Atkins MD History of Present Illness Patient is a 73-year-old female with a significant past medical history of hyperlipidemia, hypertension, polymyalgia rheumatica, osteoporosis, protein calorie malnutrition, diverticulosis of the colon, history of tobacco abuse disorder, depression who is status post RIGHT sided TCAR procedure performed today. The patient had been noted to have severe carotid artery stenosis during workup on hospitalization during a hospitalization in November. She was seen and evaluated by vascular surgery and underwent elective RIGHT sided TCAR procedure today. Procedure was noted to be uneventful. Minimal estimated blood loss. Patient was extubated without issue. Upon evaluation in room 101, the patient is awake, alert, and oriented. She reports some slight pain with swallowing, but reports no difficulty with swallowing. Additionally, she denies complaints of pain with breathing or difficulty breathing. No wheezing or cough. She offers no complaints of headaches, dizziness, lightheadedness, blurry vision, or double vision. She offers no complaints of numbness/tingling to the extremities or weakness appreciated. Allergies Allergy/AdvReac Type Severity Reaction Status Date / Time cyclobenzaprine Allergy Severe Anaphylaxis Verified 12/24/23 07:15 nickel Allergy Mild Rash Verified 12/24/23 07:15 amoxicillin [From Augmentin] AdvReac Intermediate nausea, Verified 12/24/23 07:15 vomiting, diarrhea clavulanic acid AdvReac Intermediate nausea, Verified 12/24/23 07:15 [From Augmentin] vomiting, diarrhea hydrocodone AdvReac Mild nausea/vomi Verified 12/24/23 07:15 ting propoxyphene AdvReac Mild nausea/vomi Verified 12/24/23 07:15 ting Home Medications Medication Instructions Recorded Confirmed Type lorazepam 1 mg tablet 0.5 mg PO Q8 PRN Anxiety 02/11/21 12/24/23 History amoxicillin 500 mg capsule 2,000 mg PO ONCE PRN before dental 11/26/23 12/24/23 History appointment atenolol 50 mg tablet 50 mg PO QAM 11/26/23 12/24/23 History aspirin 81 mg tablet,delayed 81 mg PO QAM #30 tabs 11/28/23 12/24/23 Rx release atorvastatin 10 mg tablet 10 mg PO HS #30 tabs 11/28/23 12/24/23 Rx clopidogrel 75 mg tablet (Plavix) 75 mg PO QAM 12/17/23 12/24/23 History Patient History Medical History Anxiety Carotid stenosis, right Generalized weakness Heart murmur Reported "years ago" per patient "No murmur" per 11/28/23 [facility] discharge summary or available recent [facility] PCP records History of diverticulitis Polymyalgia rheumatica Trismus Noted per [place] Oral/maxillofacial surgery Surgical History History of bilateral cataract extraction History of colon resection R/t diverticulitis History of colonoscopy History of dilatation and curettage History of lumbar discectomy History of tooth extraction Family History Other Hypertension No family history of adverse response to anesthesia Social History Smoking Status: Former smoker Tobacco Type: Cigarettes Smoking End Date: quit a couple months ago (was smoking 2 a day prior); Second Hand Exposure: No; Do You Dip or Chew Tobacco: No; Tobacco Cessation Education Requested by Patient: No Hx Alcohol Use: Yes Alcohol type: wine Alcohol Intake Frequency: Monthly or Less Hx Substance Use: No Preferred Language: Ukrainian Communication Ability: Effective Cloth Hand Required: No Beliefs That Will Affect Care: None marital status: Single Current Living Situation: Other Current Living Situation Comment: Lives with roommate (Clovis) current occupational status: retired Other Information That Helps Us Care for You: No Feels Safe at Home: Yes Safety Concerns: Feels Safe At This Time Assistive Devices: Denture - Upper Review of Systems 2 Review of Systems: A complete 10 point review of systems was reviewed with the patient with pertinent positives and negatives as per history of present illness. All else were negative. Physical Exam 2 Physical Exam: VITAL SIGNS - Vital signs and nursing notes were reviewed. GENERAL - 73-year-old female appearing her stated age who is in no acute distress. Communicates well with provider and answers questions appropriately. SKIN - RIGHT sided neck incision site clean, dry, and intact with small underlying hematoma. HEAD - NC/AT. EYES - PERRL with EOMI bilaterally. Sclera anicteric. EARS - No deformities of external structures noted on gross examination bilaterally. NOSE - Midline and without cyanosis. MOUTH/OROPHARYNX - Without perioral cyanosis. Buccal mucosa pink and moist. NECK - Neck with FROM. LUNGS - Chest wall symmetric without accessory muscle use, intercostals retractions, or central cyanosis. Normal vesicular breath sounds CTA B/L. No wheezes, rales, or rhonchi appreciated. CARDIAC - RRR with S1/S2. No murmur, rubs, or gallops appreciated. ABDOMEN - Abdominal contour flat without pulsations or visible masses. BS normoactive all four quadrants. No tenderness, palpable masses, hepatosplenomegaly, or ascites noted. EXTREMITIES - No clubbing or peripheral cyanosis. No pretibial edema present. +3/5 radial and dorsalis pedis pulses palpated throughout. +5/5 strength noted in UE/LE bilaterally. NEUROLOGIC - Cranial nerves II through XII grossly intact. Sensory intact to light touch throughout. PSYCH - A&Ox3 and cooperates fully with examiner. Pt is very pleasant and interacts well with examiner. Results & Data Results & Data Vital Signs (Past 12 Hours) Vital Signs Temp Pulse Pulse Resp BP BP BP 12/24/23 12:15 64 19 117/57 L 12/24/23 12:04 36.4 C L 72 20 117/57 L 12/24/23 12:00 70 18 117/57 L 12/24/23 11:51 69 20 124/67 12/24/23 11:20 36.8 C 69 13 124/66 12/24/23 11:10 36.8 C 70 16 129/65 09/10/24 11:00 36.8 C 71 18 138/75 12/24/23 10:50 73 13 152/75 H 12/24/23 10:40 73 15 154/78 H 12/24/23 10:30 77 17 129/80 12/24/23 10:21 36.0 C L 84 16 156/65 H 12/24/23 07:16 36.7 C 67 18 177/100 H 180/93 H BP Pulse Ox O2 Del Method O2 Flow Rate 12/24/23 12:15 95 Room Air 12/24/23 12:04 132/59 L 95 Room Air 12/24/23 12:00 98 Room Air 12/24/23 11:51 95 Room Air 12/24/23 11:20 133/55 L 94 Room Air 12/24/23 11:10 144/60 H 93 Room Air 12/24/23 11:00 149/66 H 98 Room Air 12/24/23 10:50 159/69 H 100 Oxymask 3 12/24/23 10:40 157/68 H 100 Oxymask 2 12/24/23 10:30 149/62 H 100 Oxymask 3 12/24/23 10:21 180/34 H 100 Oxymask 5 12/24/23 07:16 95 Room Air Laboratory Results 12/24/23 06:54 Coding Level of Care Code 45381 IN/OBS CONSULT LVL 4,60M Diagnoses S/P vascular surgery Z98.890 Carotid artery stenosis I65.29 Hypertension I10 Hyperlipidemia E78.5 Polymyalgia rheumatica M35.3
[2023-12-24] MEDS: ceFAZolin 2000MG 2,000 MG/15 ML SYR IV SCH (16:34)
[2023-12-24] MEDS: PHENYLEPHRINE/NSS 25 MG/250 ML BAG IV PRN (17:32)
[2023-12-24] MEDS: ATORVASTATIN 10 MG TAB PO SCH (20:13)
[2023-12-25] MEDS: CLOPIDOGREL BISULFATE 75 MG TAB PO SCH (08:02)
[2023-12-25] MEDS: ASPIRIN 81 MG ECTAB PO SCH (08:02)
[2023-12-25] MEDS: ATENOLOL 50 MG TABLET PO SCH (08:02)
--- NOTE | 2023-12-25 09:14 | Critical Care Progress Note ---
Date of Service December 25, 2023 Assessment & Plan (1) S/P vascular surgery: (2) Carotid artery stenosis: (3) Hypertension: (4) Hyperlipidemia: (5) Polymyalgia rheumatica: Plan Reason Critically Ill: 73-year-old female with significant history of hypertension, hyperlipidemia, PMR, and carotid artery stenosis who is status post RIGHT sided TCAR. Patient admitted to the ICU for close monitoring and management. NEURO - * CAM ICU: NEGATIVE * Their assessment per unit policy status post carotid intervention. CARDIAC/VASCULAR - * Hypertension/hyperlipidemia: * Restart home medications when tolerated. * Patient is normotensive post intervention. * Monitor on telemetry. RESPIRATORY - * Saturating well on room air. * Prior history of tobacco abuse. GI/NUTRITION - * Progress diet as tolerated RENAL/LYTES - * Monitor electrolytes, replace appropriately. - * Monitor I&Os ENDO - * No h/o DM or Thyroid Dz * BSGs per unit protocol. ISS --> gtt per unit policy. HEME - * Stable H&H * Monitor for s/s bleeding s/p vascular intervention. ID - * Prophylactic antibiotic per vascular surgery. LINES/IV ACCESS - * PIVs x2 * RIGHT Radial Arterial Line DVT PROPHYLAXIS - * Defer to vascular surgery. * SCDs Thank you for allowing us to participate in the care of this patient. Patient stable for downgrade from the ICU at this point. Admission and Anticipated Discharge Date Admission Date: December 24, 2023 Supervising Physician Co-Signing Physician Notes I saw and evaluated the patient with Josh Montero PA-C, and agree with findings and plan as documented in the note. 73-year-old male present to the hospital for right-sided TCAR Past medical history hypertension, dyslipidemia, smoker, polymyalgia rheumatica At the time of examination patient denies any issues. No adverse events overnight She had no chest pain, no shortness of breath Still soreness in the throat when she is swallowing. No dysphagia. Fair appetite. No nausea vomiting She was saturating 96% on room air with heart rate in the low 70s and systolic blood pressure in the 120s. Constitutional: No acute distress HEENT: EOMI, PERRLA, minimal hematoma appreciated around the incision site, surrounding swelling has gone down, no stridor Respiratory system: Decreased air entry bilaterally, no wheeze, no rhonchi, mild crackles bilaterally CVS: S1-S2 positive, no murmurs or gallops Abdomen: Soft, nontender, nondistended, positive bowel sounds x4 Extremities: +2 pulses bilaterally radialis/ dorsalis pedis, no cyanosis, no edema Neuro: Awake alert oriented x3 Psych: Normal mood and affect G/U: No Raymond --Prophylaxis VTE: IPC GI: None Lines: Peripheral Diet: Cardiac Plan: Patient hemodynamically stable Still complains of some soreness on swallowing. No difficulty swallowing though. Will give lozenges. Radial line has been discontinued Disposition as per vascular Please note the above document was generated using voice recognition software. It may contain grammatical, syntax or spelling errors.Any formal questions or concerns about the content, text or information contained within the body of this dictation should be directly addressed to the provider for clarification. Subjective Patient seen and evaluated at bedside. She had an uneventful night. She reports some soreness at the site of the incision on her neck. Otherwise, she reports doing well. Review of Systems Review of Systems: A complete 10 point review of systems was reviewed with the patient with pertinent positives and negatives as per history of present illness. All else were negative. Physical Exam Physical Exam: VITAL SIGNS - Vital signs and nursing notes were reviewed. GENERAL - 73-year-old female appearing her stated age who is in no acute distress. Communicates well with provider and answers questions appropriately. SKIN - RIGHT sided neck incision site clean, dry, and intact with small underlying hematoma. HEAD - NC/AT. EYES - PERRL with EOMI bilaterally. Sclera anicteric. EARS - No deformities of external structures noted on gross examination bilaterally. NOSE - Midline and without cyanosis. MOUTH/OROPHARYNX - Without perioral cyanosis. Buccal mucosa pink and moist. NECK - Neck with FROM. LUNGS - Chest wall symmetric without accessory muscle use, intercostals re tractions, or central cyanosis. Normal vesicular breath sounds CTA B/L. No wheezes, rales, or rhonchi appreciated. CARDIAC - RRR with S1/S2. No murmur, rubs, or gallops appreciated. ABDOMEN - Abdominal contour flat without pulsations or visible masses. BS normoactive all four quadrants. No tenderness, palpable masses, hepatosplenomegaly, or ascites noted. EXTREMITIES - No clubbing or peripheral cyanosis. No pretibial edema present. +3/5 radial and dorsalis pedis pulses palpated throughout. +5/5 strength noted in UE/LE bilaterally. NEUROLOGIC - Cranial nerves II through XII grossly intact. Sensory intact to light touch throughout. PSYCH - A&Ox3 and cooperates fully with examiner. Pt is very pleasant and interacts well with examiner. Results & Data Results & Data Vital Signs (Past 12 Hours) Vital Signs Temp Pulse Resp BP Pulse Ox 12/25/23 08:42 36.7 C 12/25/23 08:12 70 21 96 12/25/23 08:00 73 12/25/23 08:00 104/63 12/25/23 07:42 64 24 95 12/25/23 07:30 72 20 97 12/25/23 07:30 144/81 H 12/25/23 07:30 144/81 H 12/25/23 07:30 144/81 H 12/25/23 07:30 144/81 H 12/25/23 07:03 60 16 95 12/25/23 07:00 124/62 12/25/23 06:42 59 L 16 95 12/25/23 06:33 79 22 94 12/25/23 06:30 120/68 12/25/23 06:18 66 20 96 12/25/23 06:00 58 L 16 95 12/25/23 06:00 121/62 12/25/23 05:30 61 14 94 12/25/23 05:30 110/58 L 12/25/23 05:06 64 15 95 12/25/23 05:00 110/56 L 12/25/23 04:57 57 L 14 94 12/25/23 04:00 58 L 17 94 12/25/23 04:00 112/53 L 12/25/23 03:30 109/67 12/25/23 03:00 56 L 17 95 12/25/23 03:00 112/55 L 12/25/23 02:30 88 12 93 12/25/23 02:30 122/83 12/25/23 02:09 60 16 94 12/25/23 01:06 60 17 94 12/25/23 01:00 113/64 12/25/23 00:57 58 L 18 93 12/25/23 00:30 141/75 H 12/25/23 00:18 62 19 95 12/25/23 00:06 58 L 16 94 12/25/23 00:01 123/47 L 12/25/23 00:00 59 L 12/24/23 23:45 60 17 93 12/24/23 23:30 106/54 L 12/24/23 23:03 59 L 19 95 12/24/23 23:02 106/49 L 12/24/23 22:30 126/58 L 12/24/23 22:09 61 18 94 12/24/23 21:14 102/53 L Coding Level of Care Code 78659 SUB INP/OBS CARE 05/09MIN Diagnoses S/P vascular surgery Z98.890 Carotid artery stenosis I65.29 Hypertension I10 Hyperlipidemia E78.5 Polymyalgia rheumatica M35.3
[2023-12-25 11:38] VITALS: RESP 17; TEMP 97.9; O2SAT 93
[2023-12-25 12:10] VITALS: BP 143/95; PULSE 72
--- NOTE | 2023-12-25 12:29 | Surgery Progress Note ---
Date of Service December 25, 2023 Assessment & Plan (1) Carotid artery stenosis: Plan: Status POD #1 from a right tcar. She has an uncomplicated course. D/C today Admission and Anticipated Discharge Date Admission Date: December 24, 2023 Subjective Patient with no complaints. Denies any focal deficits. Physical Exam Constitutional: WD/WN, vitals as above Neck: trachea midline Respiratory: normal respiratory effort; no respiratory distress Cardiovascular: Rate/Rhythm: regular rate and regular rhythm Skin: + incision (dry and clean) Neurologic: CN's II-XI intact bilaterally and moves all extremities Psychiatric: A+Ox3, euthymic affect Results & Data Vital Signs (Past 12 Hours) Vital Signs Temp Pulse Pulse Resp BP BP Pulse Ox 12/25/23 12:07 36.6 C 72 17 143/95 H 93 12/25/23 11:38 36.6 C 12/25/23 11:30 124/73 12/25/23 11:27 69 17 93 12/25/23 10:09 64 21 95 12/25/23 10:00 134/67 12/25/23 09:51 65 22 94 12/25/23 09:30 141/69 H 12/25/23 09:21 62 21 96 12/25/23 09:00 85 28 H 95 12/25/23 09:00 149/87 H 12/25/23 09:00 149/87 H 12/25/23 08:42 36.7 C 12/25/23 08:36 156/92 H 12/25/23 08:36 156/92 H 12/25/23 08:30 116/71 12/25/23 08:21 62 20 94 12/25/23 08:12 70 21 96 12/25/23 08:00 73 12/25/23 08:00 104/63 12/25/23 07:42 64 24 95 12/25/23 07:30 72 20 97 12/25/23 07:30 144/81 H 12/25/23 07:30 144/81 H 12/25/23 07:30 144/81 H 12/25/23 07:30 144/81 H 12/25/23 07:03 60 16 95 12/25/23 07:00 124/62 12/25/23 06:42 59 L 16 95 12/25/23 06:33 79 22 94 12/25/23 06:30 120/68 12/25/23 06:18 66 20 96 12/25/23 06:00 58 L 16 95 12/25/23 06:00 121/62 12/25/23 05:30 61 14 94 12/25/23 05:30 110/58 L 12/25/23 05:06 64 15 95 12/25/23 05:00 110/56 L 12/25/23 04:57 57 L 14 94 12/25/23 04:00 58 L 17 94 12/25/23 04:00 112/53 L 12/25/23 03:30 109/67 12/25/23 03:00 56 L 17 95 12/25/23 03:00 112/55 L 12/25/23 02:30 88 12 93 12/25/23 02:30 122/83 12/25/23 02:09 60 16 94 12/25/23 01:06 60 17 94 12/25/23 01:00 113/64 12/25/23 00:57 58 L 18 93 12/25/23 00:30 141/75 H
--- NOTE | 2023-12-25 12:37 | Discharge Summary ---
Date of Service December 25, 2023 Admission HPI Per Admitting Provider [place] [address] Consultation Signed Patient: POLI VITAL Admit Date: 11/26/23 MR#: [id number] Att Phy: Patrice Dominguez MD Acct ID: [id number] Kanika Phy: Richi Alonzo III, MD Date: 1950 Fam Phy: Age: 73 Location: 3W Sex: F Room/Bed: [facility] cc: ~ *NOTICE TO RECEIVING DEMOCRAT/AGENCY This information is strictly Confidential and protected under [place] law. [place] law prohibits you from making any further disclosure of this information unless further disclosure is expressly permitted by the written consent of the person to whom it pertains or is authorized by law. A general authorization for the release of medical or other information is not sufficient for this purpose. Hospital accepts no responsibility if the information is made available to any other person, INCLUDING THE PATIENT. Date of Consultation November 28, 2023 Assessment & Plan (1) Stenosis of right carotid artery: Even though she is asymptomatic due to the severe stenosis of the carotid we recommended intervention. We went over the risks options and benefits of TCAR versus endarterectomy. She is elected to go ahead with a TCAR. According to her x-rays she is a TCAR candidate. I have discussed the risks options and benefits of the procedure with the patient. The patient understands the risks options and benefits and agrees to the procedure. This will be scheduled to be done in a couple weeks. I did start her on Plavix and she is already on a statin and baby aspirin. Thank you very much for letting us participate in the care of this patient. History of Present Illness Reason for Consultation: Severe right internal carotid artery stenosis Attending Physician: Patrice Dominguez MD History of Present Illness This 73-year-old female with past medical history significant for hyperlipidemia, hypertension, history of polymyalgia rheumatica, osteoporosis, protein calorie malnutrition, diverticulosis of colon and diverticulitis, history of tobacco use disorder, depression. She was admitted for jaw pain and difficulty opening her mouth. During her workup she was found to have a severe stenosis of her right internal carotid artery. She denies any episodes of amaurosis fugax, TIA, or strokes. Allergies Allergy/AdvReac Type Severity Reaction Status Date / Time cyclobenzaprine Allergy Unknown * Verified 11/26/23 20:13 hydrocodone Allergy Unknown * Verified 11/26/23 20:13 propoxyphene Allergy Unknown * Verified 11/26/23 20:13 Quinolones AdvReac Intermediate N/V Verified 11/26/23 20:13 Home Medications Medication Instructions Recorded Confirmed Type lorazepam 1 mg tablet 0.5 mg PO Q8 PRN Anxiety 02/11/21 11/26/23 History amoxicillin 500 mg capsule 2,000 mg PO ONCE PRN before dental 11/26/23 11/26/23 History appointment atenolol 50 mg tablet 50 mg PO QAM 11/26/23 11/26/23 History omeprazole 20 mg capsule,delayed 20 mg PO DAILYBB 11/26/23 11/26/23 History release sucralfate 100 mg/mL oral 10 ml PO QID 11/26/23 11/26/23 History suspension Saccharomyces boulardii 250 mg 250 mg PO DAILY #4 caps 11/28/23 Rx capsule (Florastor) aspirin 81 mg tablet,delayed 81 mg PO QAM #30 tabs 11/28/23 Rx release atorvastatin 10 mg tablet 10 mg PO HS #30 tabs 11/28/23 Rx cephalexin 500 mg capsule 500 mg PO Q6H 4 days #16 caps 11/28/23 Rx clopidogrel 75 mg tablet (Plavix) 75 mg PO DAILY #30 tabs 11/28/23 Rx metronidazole 500 mg tablet 500 mg PO Q8H 4 days #12 tabs 11/28/23 Rx Patient History Surgical History History of dental surgery Family History Other Hypertension Social History Smoking Status: Never smoker Tobacco Type: Cigarettes Hx Alcohol Use: Yes Alcohol type: wine Alcohol Intake Frequency: Monthly or Less Hx Substance Use: Yes Last Used Substance: Unknown Last Used Substance Other:: uses medical marijuana "ocassionally", but not recently Preferred Language: [place]ican Communication Ability: Effective Blue Line Hanger Required: No Beliefs That Will Affect Care: None marital status: Single Current Living Situation: Significant Other Current Living Situation Comment: lives with sig. other in 2 story home, some r eported difficulty with stairs current occupational status: retired Other Information That Helps Us Care for You: No Feels Safe at Home: Yes Safety Concerns: Feels Safe At This Time Assistive Devices: Denture - Upper Assistive Devices Comment: states that she is "getting a cane" due to recent weakness Review of Systems Review of Systems: All systems reviewed & are unremarkable except as noted in HPI & below Physical Exam Constitutional: WD/WN, vitals as above Respiratory: normal respiratory effort; no respiratory distress Auscultation: lungs clear to auscultation bilaterally Cardiovascular: RRR, no murmur, no edema Vessels: + carotid bruit (on right) Extremities: normal capillary refill Gastrointestinal (Abdomen): normal bowel sounds, soft, nontender, no hepatosplenomegaly Neurologic: CN's II-XI intact bilaterally and moves all extremities Psychiatric: Orientation: alert and oriented x 3 Results & Data Vital Signs (Past 12 Hours) Vital Signs Temp Pulse Pulse Resp BP Pulse Ox O2 Del Method 11/28/23 15:14 36.7 C 70 75 18 137/64 95 11/28/23 07:32 36.7 C 75 18 137/64 95 Room Air Signed By: <Electronically signed by Addison Atkins MD> 11/28/23 1534 Created: 11/28/23 1529 The status of this report is Signed. Draft = Not yet reviewed or approved by Medical Physician. Signed = Reviewed and approved by Medical Physician. Admission Exam Per Admitting Provider Constitutional: WD/WN, vitals as above Respiratory: normal respiratory effort; no respiratory distress Auscultation: lungs clear to auscultation bilaterally Cardiovascular: RRR, no murmur, no edema Vessels: + carotid bruit (on right) Extremities: normal capillary refill Gastrointestinal (Abdomen): normal bowel sounds, soft, nontender, no he patosplenomegaly Neurologic: CN's II-XI intact bilaterally and moves all extremities Psychiatric: Orientation: alert and oriented x 3 Principal Diagnosis 1. s/p R TCAR 2. R ICA stenosis Discharge Exam Constitutional WD/WN, vitals as above Neck trachea midline Respiratory normal respiratory effort; no respiratory distress Cardiovascular Rate/Rhythm: regular rate and regular rhythm Skin + incision (dry and clean) Neurologic CN's II-XI intact bilaterally and moves all extremities Psychiatric A+Ox3, euthymic affect Discharge Data Allergies Allergy/AdvReac Type Severity Reaction Status Date / Time cyclobenzaprine Allergy Severe Anaphylaxis Verified 12/24/23 07:15 nickel Allergy Mild Rash Verified 12/24/23 07:15 amoxicillin [From Augmentin] AdvReac Intermediate nausea, Verified 12/24/23 07:15 vomiting, diarrhea clavulanic acid AdvReac Intermediate nausea, Verified 12/24/23 07:15 [From Augmentin] vomiting, diarrhea hydrocodone AdvReac Mild nausea/vomi Verified 12/24/23 07:15 ting propoxyphene AdvReac Mild nausea/vomi Verified 12/24/23 07:15 ting Consultations 12/24/23 11:55 Consult Flow Specialist Routine Procedures Performed Operation Date: 12/24/23 08:30 Actual Procedures p Right Transcarotid Artery Revascularization, Ultrasound Left Femoral Vein(Right) - Addison Atkins MD Ordered Studies 12/24/23 07:18 EV angio carotid cerv RT Routine US EV guide vascular access Routine Hospital Course (1) Carotid artery stenosis: Status POD #1 from a right tcar. She has an uncomplicated course. D/C today Total Time Total Time Spent Total Time Spent (In Minutes): 0 Discharge Plan Discharge Items Patient Disposition: Home - Self-Care Reason For Visit: Right Carotid Artery Stenosis Discharge Diagnosis: 1. s/p R TCAR 2. R ICA stenosis Activity: Per Instructions section Non-emergency contact: Primary Care Provider and Surgeon Call non-emergency contact if: you have any medication questions, your pain is not controlled, your pain is concerning for you, you have a fever, your wound has increased redness and your wound has increased drainage Follow-up/Referrals: Richi Alonzo MD [Primary Care Provider] - (Follow up with PCP within 2 weeks) Addison Atkins MD [Physician] - (Follow up with Dr Atkins or Leesa Segura PA-C, in 2 weeks) Diet: Heart Healthy Addtl Attending Provider Instructions: SPECIAL CARE INSTRUCTIONS: Medications: * Continue to take Aspirin, plavix, and statin medications as directed. DO NOT STOP THESE MEDICATIONS WITHOUT SPEAKING TO DR ATKINS'S OFFICE. Incision Care: * You may shower, but do not rub incision. You may let the warm soapy water run over it. Be sure to dry the incision well after bathing. * Do not shave directly over the incision until it is healed. * DO NOT IMMERSE THE INCISION IN A TUB/POOL/etc. UNTIL HEALED. Restrictions: * Do not drive if you are still taking any narcotic pain medication. * Do not lift anything heavier than a gallon of milk for one week after going home. Possible Complications: * Numbness - It is normal to have some numbness around the incision. Numbness can extend beyond the incision to areas of the neck, ear and face. The numbness is due to bruising of nerves during the surgery and will gradually improve over a period of months. * Hoarseness/Difficulty Speaking and Swallowing - The bruising of nerves in the neck can also cause a hoarse voice, difficulty speaking or swallowing. This may improve over time, HOWEVER, if it continues for more than a few days please contact our office ([phone]). * Excessive Swelling - There will be some swelling immediately after surgery which usually resolves within one week. If you notice that the swelling is getting worse, notify your surgeon ([phone]). * Drainage/Bleeding - If there is any drainage or bleeding, it should be a very small amount (less than a teaspoon per day). If you have excessive bleeding or drainage from the incision, call your surgeon ([phone]) right away. ACTIVATION OF EMERGENCY MEDICAL SYSTEM: Call 911, immediately, if you experience any of the following: Warning Signs and Symptoms of Stroke: * Sudden numbness or weakness of the face, arm or leg, especially on one side of the body * Sudden confusion, trouble speaking or understanding * Sudden trouble seeing in one or both eyes * Sudden trouble walking, dizziness, loss of balance or coordination * Sudden severe headache with no cause Do not delay calling 911 if you experience any warning signs or symptoms of a stroke. Delay in seeking medical attention may affect what treatments can be given to you. Risk Factors for Stroke: You can reduce your chances of stroke by working with your medical provider to adopt a healthy lifestyle. Some specific ways to lower your chance of stroke are: * If you are a smoker, now is the time to stop smoking cigarettes * If you are diabetic, improve the control of your blood sugars * Avoid excessive amounts of alcohol * Control high blood pressure * Lose weight if you are overweight * Be sure to lead an active lifestyle * Eat a healthy diet low in salt, cholesterol and fat You should know about other risk factors for stroke that you are unable to control. These include: * Age 55 years or older * Male gender * Certain racial groups: , or / * Family History of Stroke, Mini stroke or Heart Attack * Sickle Cell Disease You will be receiving a call from the Vascular Surgery Nurse after you are discharged. FOLLOW UP VISIT: It is important for you to keep your follow up appointments with your medical provider. Keep any scheduled doctor appointments. Pending Studies at Discharge: No Stand-Alone Forms: [facility], Smoking Cessation Medications and DC Order Prescriptions: New oxycodone-acetaminophen [Percocet] 5-325 mg Tablet 1 - 2 tab PO Q6H PRN (Reason: pain) Qty: 20 0RF Continued lorazepam 1 mg tablet 0.5 mg PO Q8 PRN (Reason: Anxiety) atenolol 50 mg tablet 50 mg PO QAM amoxicillin 500 mg capsule 2,000 mg PO ONCE PRN (Reason: before dental appointment) atorvastatin 10 mg Tablet 10 mg PO HS Qty: 30 0RF aspirin 81 mg Tablet,Delayed Release (Dr/Ec) 81 mg PO QAM Qty: 30 0RF clopidogrel [Plavix] 75 mg tablet 75 mg PO QAM Discharge Orders: Discharge Order (Routine); Ordered 12/25/23 Ordered By: Leesa Segura Admission Data Admit Date/Time: 12/24/23 07:43 Attending Provider: Addison Atkins Admit Provider: Addison Atkins Primary Care Provider: Richi Alonzo Other Providers: Anderson Ryder; Josh Montero; Ely Lockett Chase B.; Gwendolyn Hernandez Muqueet; Brezovic, Nathan S.; Margarita Zamudio; Jessenia Andino; Segundo Lorenz; Richi Poole; Shaila Proctor Other Interventions: Discharge Summary Assessment (RN) Last Done: 12/25/23 12:07
== END 2023-12-25 13:21 | disposition home or self-care (01) | DRG 35 ==
LOC: ASU 06:40 → 1E 07:43
PROC: EV.TCAR (2023-12-24 08:30)
DX: M81.0 Age-related osteoporosis without current pathological fracture; Z79.02 Long term (current) use of antithrombotics/antiplatelets; I10 Essential (primary) hypertension; Z87.891 Personal history of nicotine dependence; Z88.8 Allergy status to other drugs, medicaments and biological substances; Z88.1 Allergy status to other antibiotic agents; I65.21 Occlusion and stenosis of right carotid artery; E46 Unspecified protein-calorie malnutrition; Z79.82 Long term (current) use of aspirin; F32.A Depression, unspecified; Z88.5 Allergy status to narcotic agent; E78.5 Hyperlipidemia, unspecified; M35.3 Polymyalgia rheumatica; Z79.899 Other long term (current) drug therapy